=== PATIENT | female | born 1950 | race Caucasian/White ===

== ENCOUNTER 2020-12-15 10:42 | Outpatient (CLI) | payer MEDICARE, SELFPAY ==
--- NOTE | 2020-12-15 10:57 | MM_ITS ---
WS: [id number] BILATERAL DIGITAL DIAGNOSTIC MAMMOGRAM MAMMOGRAPHY WITH CAD CLINICAL INFORMATION: hx of breast ca COMPARISON: August 17, 2019 and August 2018 and 2017 TECHNIQUE: Bilateral CC, MLO, and ML views. FINDINGS: Scattered fibroglandular densities bilaterally. Prior postoperative changes left upper outer quadrant lumpectomy with parenchymal scarring. Dystrophic and eggshell calcification. Surgical clips. Bilater al punctate and clustered calcifications. Lucent centered calcifications. No suspicious focal mass, asymmetry, calcifications, or architectural distortion. No evidence of lois gnancy. MM/[place] [id number] IMPRESSION: BI-RADS: 2-Benign FOLLOW UP: 1 Year Follow-up Recommend return to annual diagnostic mammography.
== END 2020-12-15 10:43 | disposition home or self-care (01) ==
PROVIDERS: PCP Nurse Practitioner; Visit Provider Nurse Practitioner
DX: Z85.3 Personal history of malignant neoplasm of breast (principal)
CPT/HCPCS: 77066

== ENCOUNTER 2021-04-11 07:58 | Outpatient (CLI) | payer MEDICARE, SELFPAY ==
--- NOTE | 2021-04-11 08:00 | USCV_ITS ---
Anya Navarro Age: 70 Gender: F : 1950 Exam Date: 04/11/2021 08:28 Ordering Phys: Obdulia Nj MD ([email or web address]) Technologist: Connor Hernandez Exam Location: [facility] – [place] Indication: chest pain BP: 130 / 76 HR: 51 Rhythm: Sinus Technical Quality: Adequate MEASUREMENTS (Male / Female) Normal Values 2D ECHO LV Diastolic Diameter PLAX 3.5 cm 4.2 - 5.9 / 3.9 - 5.3 cm LV Systolic Diameter PLAX 2.6 cm IVS Diastolic Thickness 0.8 cm 0.6 - 1.0 / 0.6 - 0.9 cm IVS Systolic Thickness 1.3 cm LVPW Diastolic Thickness 1.0 cm 0.6 - 1.0 / 0.6 - 0.9 cm LVPW Systolic Thickness 1.1 cm LVOT Diameter 2.1 cm LV Ejection Fraction 2D Teich 51.7 % LV Ejection Fraction MOD 2C 64.1 % LV Ejection Fraction 2C AL 65.3 % LA Diameter 3.9 cm LA Width 3.4 cm LA Height 6.2 cm RA Width 4.4 cm RA Height 5.0 cm Aorta at Sinotubular Diameter 2.4 cm M-MODE Aortic Annulus Diameter 3.6 cm LA Ao Ratio MM 1.2 DOPPLER AV Peak Velocity 171.0 cm/s LVOT Peak Velocity 127.0 cm/s AV Area Cont Eq vti 2.7 cm squared AV Area Cont Eq pk 2.5 cm squared MV Area PHT 3.9 cm squared Mitral E to A Ratio 1.3 MV E' Velocity 53.0 cm/s Mitral E to MV E' Ratio 10.4 Mitral E to LV E' Lateral Ratio 10.0 Mitral E to LV E' Septal Ratio 10.8 TR Peak Velocity 291.8 cm/s TR Peak Gradient 34.0 mmHg TV Peak E Velocity 121.0 cm/s Right Atrial Pressure 3.0 mmHg Pulmonary Artery Systolic Pressu 37.0 mmHg PV Peak Velocity 73.0 cm/s FINDINGS Left Ventricle Normal left ventricular size and systolic function, EF 64 %. No regional wall motion abnormalities. Right Ventricle The right ventricle is normal in size and function. Right Atrium The right atrium is normal in size. Left Atrium Mildly increased left atrial size. Mitral Valve Thickened mitral valve. Mild mitral annular calcification. Trace mitral valve regurgitation. Aortic Valve Thickened aortic valve. Tricuspid Valve Trace to mild tricuspid valve regurgitation. Pulmonic Valve No gross abnormalities noted Pericardium Normal pericardium without effusion. Aorta Normal ascending aorta dimension. CONCLUSIONS Normal left ventricular size and systolic function, EF 64 %. No regional wall motion abnormalities. Mildly increased left atrial size. Thickened mitral valve. Mild mitral annular calcification. Trace mitral valve regurgitation. Thickened aortic valve. Trace to mild tricuspid valve regurgitation. There is no pericardial effusion. There are no intracardiac masses. Estimated pulmonary artery peak systolic pressure was 37 mmHg There is no pericardial effusion. There are no intracardiac masses. No previous study is available for comparison. Dr Obdulia Nj MD FACC (Electronically Signed) Final Date: 11 April 2021 23:17 S
== END 2021-04-11 07:59 | disposition home or self-care (01) ==
LOC: US 08:00
PROVIDERS: PCP Nurse Practitioner; Visit Provider Internal Medicine Cardiovascular Disease
DX: R06.00 Dyspnea, unspecified (principal); R07.9 Chest pain, unspecified; I08.3 Combined rheumatic disorders of mitral, aortic and tricuspid valves
CPT/HCPCS: 93306

== ENCOUNTER → 2021-09-13 12:35 | Outpatient (BNVA) | payer MEDICARE, SELFPAY | PROVIDERS: PCP Nurse Practitioner; Visit Provider Internal Medicine Cardiovascular Disease | DX: Z79.01 Long term (current) use of anticoagulants (principal) ==

== ENCOUNTER 2021-09-19 11:19 | Outpatient (CLI) | payer MEDICARE, SELFPAY ==
--- NOTE | 2021-09-19 11:32 | XR_ITS ---
WS: [id number] DEXA (DUAL ENERGY X-RAY ABSORPTIOMETRY) Bone mineral density was performed using a [employer] machine. HISTORY: POST MENOPAUSAL COMPARISON: None available. Lumbar spine BMD (L1-L4): 1.159 g/cm2 T score: -0.2 Z score: 0.3 Total hip BMD: Left: 0.966 g/cm2. T score: -0.3 Z score: 0.4 Right: 0.919 g/cm2. T score: -0.7 Z score: 0.0 10 year probability of a major osteoporotic fracture is 14%. XR/XR DEXA axial skeleton* [id number] IMPRESSION: NORMAL BONE MINERAL DENSITY based upon the WHO classification for females.
== END 2021-09-19 11:20 | disposition home or self-care (01) ==
LOC: RAD 11:25
PROVIDERS: PCP Nurse Practitioner; Visit Provider Nurse Practitioner
DX: Z78.0 Asymptomatic menopausal state (principal)
CPT/HCPCS: 77080

== ENCOUNTER → 2021-09-22 08:52 | Outpatient (BNVA) | payer MEDICARE, SELFPAY | PROVIDERS: PCP Nurse Practitioner; Visit Provider Internal Medicine Cardiovascular Disease | DX: Z79.01 Long term (current) use of anticoagulants (principal) ==

== ENCOUNTER → 2021-09-29 13:20 | Outpatient (BNVA) | payer MEDICARE, SELFPAY | PROVIDERS: PCP Nurse Practitioner; Visit Provider Internal Medicine Cardiovascular Disease | DX: I48.91 Unspecified atrial fibrillation (principal); Z79.01 Long term (current) use of anticoagulants ==

== ENCOUNTER → 2021-10-06 09:00 | Outpatient (BNVA) | payer MEDICARE, SELFPAY | PROVIDERS: PCP Nurse Practitioner; Visit Provider Internal Medicine Cardiovascular Disease | DX: Z79.01 Long term (current) use of anticoagulants (principal) ==

== ENCOUNTER → 2021-10-10 09:59 | Outpatient (BNVA) | payer MEDICARE, SELFPAY | PROVIDERS: PCP Nurse Practitioner; Visit Provider Internal Medicine Cardiovascular Disease | DX: I48.91 Unspecified atrial fibrillation (principal); I10 Essential (primary) hypertension; E03.9 Hypothyroidism, unspecified; G47.33 Obstructive sleep apnea (adult) (pediatric); J44.9 Chronic obstructive pulmonary disease, unspecified; Z79.899 Other long term (current) drug therapy; Z79.01 Long term (current) use of anticoagulants; F17.210 Nicotine dependence, cigarettes, uncomplicated | CPT/HCPCS: 99214 ==

== ENCOUNTER → 2021-10-18 12:43 | Outpatient (BNVA) | payer MEDICARE, SELFPAY | PROVIDERS: PCP Nurse Practitioner; Visit Provider Internal Medicine Cardiovascular Disease | DX: Z79.01 Long term (current) use of anticoagulants (principal) ==

== ENCOUNTER → 2021-10-25 09:54 | Outpatient (BNVA) | payer MEDICARE, SELFPAY | PROVIDERS: PCP Nurse Practitioner; Visit Provider Internal Medicine Cardiovascular Disease | DX: Z79.01 Long term (current) use of anticoagulants (principal) ==

== ENCOUNTER → 2021-11-02 15:34 | Outpatient (BNVA) | payer MEDICARE, SELFPAY | PROVIDERS: PCP Nurse Practitioner; Visit Provider Internal Medicine Cardiovascular Disease | DX: Z79.01 Long term (current) use of anticoagulants (principal) ==

== ENCOUNTER → 2021-11-10 09:42 | Outpatient (BNVA) | payer MEDICARE, SELFPAY | PROVIDERS: PCP Nurse Practitioner; Visit Provider Internal Medicine Cardiovascular Disease | DX: Z79.01 Long term (current) use of anticoagulants (principal) ==

== ENCOUNTER → 2021-11-16 08:46 | Outpatient (BNVA) | payer MEDICARE, SELFPAY | PROVIDERS: PCP Nurse Practitioner; Visit Provider Internal Medicine Cardiovascular Disease | DX: Z79.01 Long term (current) use of anticoagulants (principal) ==

== ENCOUNTER → 2021-11-23 15:07 | Outpatient (BNVA) | payer MEDICARE, SELFPAY | PROVIDERS: PCP Nurse Practitioner; Visit Provider Internal Medicine Cardiovascular Disease | DX: Z79.01 Long term (current) use of anticoagulants (principal) ==

== ENCOUNTER 2021-11-24 12:40 | Outpatient (CLI) | payer MEDICARE, SELFPAY ==
--- NOTE | 2021-11-24 12:53 | CT_ITS ---
WS: [id number] LDCT LUNG CANCER SCREENING HISTORY: NICOTINE DEPENDENCE, CIGARETTES TECHNIQUE: Axial imaging performed from the apices to 1 cm below the costophrenic angles. Coronal and sagittal reformats are submitted with axial MIP series. All CT scans at [facility] use at least one of these dose optimization techniques: automated exposure control; mA and/or kV adjustment per patient size (includes targeted exams where dose is matched to clinical indication); or iterativ e reconstruction. DLP: 75.41 mGy.cm DIvol: Mean CTDIvol: 1.60 (mGy) COMPARISON: None available. Diagnostic quality: Satisfactory Lung Nodules: No nodule or endobronchial lesions. Lungs: No abnormality. Heart: Normal size heart. No pericardial effusion. Other findings: Moderate atherosclerosis within the aorta. Normal size pulmonary artery. No pericardi al or pleural effusion. Bilateral adrenal low-attenuation nodules consistent with adenomas. Increase in thoracic kyphosis. Soft tissue thickening involving the LEFT breast. History of breast cancer. Thi s is probably posttreatment change. CT/CT lung screening [id number] IMPRESSION: LUNG-RADS: 1-Negative FOLLOW UP: 12 Month: Continue annual screening with LDCT OTHER FINDINGS (S MODIFIER): None.
== END 2021-11-24 12:41 | disposition home or self-care (01) ==
LOC: RAD 12:46
PROVIDERS: PCP Physician Assistant; Visit Provider Physician Assistant
DX: Z12.2 Encounter for screening for malignant neoplasm of respiratory organs (principal); F17.210 Nicotine dependence, cigarettes, uncomplicated
CPT/HCPCS: 71271

== ENCOUNTER → 2021-12-01 09:43 | Outpatient (BNVA) | payer MEDICARE, SELFPAY | PROVIDERS: PCP Physician Assistant; Visit Provider Internal Medicine Cardiovascular Disease | DX: Z79.01 Long term (current) use of anticoagulants (principal) ==

== ENCOUNTER → 2021-12-06 10:08 | Outpatient (BNVA) | payer MEDICARE, SELFPAY | PROVIDERS: PCP Physician Assistant; Visit Provider Internal Medicine Cardiovascular Disease | DX: Z79.01 Long term (current) use of anticoagulants (principal) ==

== ENCOUNTER → 2021-12-14 09:52 | Outpatient (BNVA) | payer MEDICARE, SELFPAY | PROVIDERS: PCP Physician Assistant; Visit Provider Internal Medicine Cardiovascular Disease | DX: Z79.01 Long term (current) use of anticoagulants (principal) ==

== ENCOUNTER → 2021-12-20 17:06 | Outpatient (BNVA) | payer MEDICARE, SELFPAY | PROVIDERS: PCP Physician Assistant; Visit Provider Internal Medicine Cardiovascular Disease | DX: Z79.01 Long term (current) use of anticoagulants (principal) ==

== ENCOUNTER → 2021-12-29 09:34 | Outpatient (BNVA) | payer MEDICARE, SELFPAY | PROVIDERS: PCP Physician Assistant; Visit Provider Internal Medicine Cardiovascular Disease | DX: Z79.01 Long term (current) use of anticoagulants (principal) ==

== ENCOUNTER → 2022-01-05 10:25 | Outpatient (BNVA) | payer MEDICARE, SELFPAY | PROVIDERS: PCP Physician Assistant; Visit Provider Internal Medicine Cardiovascular Disease | DX: Z79.01 Long term (current) use of anticoagulants (principal) ==

== ENCOUNTER → 2022-01-12 09:20 | Outpatient (BNVA) | payer MEDICARE, SELFPAY | PROVIDERS: PCP Physician Assistant; Visit Provider Internal Medicine Cardiovascular Disease | DX: Z79.01 Long term (current) use of anticoagulants (principal) ==

== ENCOUNTER → 2022-01-17 14:22 | Outpatient (BNVA) | payer MEDICARE, SELFPAY | PROVIDERS: PCP Physician Assistant; Visit Provider Internal Medicine Cardiovascular Disease | DX: Z79.01 Long term (current) use of anticoagulants (principal) ==

== ENCOUNTER → 2022-01-23 11:03 | Outpatient (BNVA) | payer MEDICARE, SELFPAY | PROVIDERS: PCP Physician Assistant; Visit Provider Internal Medicine Cardiovascular Disease | DX: Z79.01 Long term (current) use of anticoagulants (principal) ==

== ENCOUNTER → 2022-04-05 09:48 | Outpatient (BNVA) | payer MEDICARE, SELFPAY | PROVIDERS: PCP Physician Assistant; Visit Provider Internal Medicine Cardiovascular Disease | DX: I48.91 Unspecified atrial fibrillation (principal); Z79.01 Long term (current) use of anticoagulants; J44.9 Chronic obstructive pulmonary disease, unspecified; G47.33 Obstructive sleep apnea (adult) (pediatric); F51.9 Sleep disorder not due to a substance or known physiological condition, unspecified; I10 Essential (primary) hypertension; E03.9 Hypothyroidism, unspecified; F17.200 Nicotine dependence, unspecified, uncomplicated; Z79.899 Other long term (current) drug therapy | CPT/HCPCS: 99214 ==

== ENCOUNTER 2022-06-07 11:23 | Outpatient (CLI) | payer MEDICARE, SELFPAY ==
--- NOTE | 2022-06-07 11:30 | MM_ITS ---
WS: [id number] DIAGNOSTIC BILATERAL DIGITAL BREAST TOMOSYNTHESIS MAMMOGRAPHY WITH CAD HISTORY: HX OF BREAST CA COMPARISON: 12/15/2020, 08/17/2019 TECHNIQUE: Bilateral craniocaudad, mediolateral oblique, and mediolateral views are submitted with to mosynthesis and SM. Computer aided detection utilized. Breast composition: There are scattered areas of fibroglandular density. Lumpectomy and postsurgical changes in the posterior superior LEFT breast. Marked dystrophic calcifications and biopsy clips. The re are additional bilateral scattered benign calcifications. Mild LEFT skin thickening and trabecular thickening. No interval change. MM/[place] [id number] IMPRESSION: BI-RADS: 2-Benign FOLLOW UP: 1 Year Follow-up
== END 2022-06-07 11:24 | disposition home or self-care (01) ==
LOC: RAD 11:25
PROVIDERS: PCP Physician Assistant; Visit Provider Physician Assistant
DX: Z85.3 Personal history of malignant neoplasm of breast (principal)
CPT/HCPCS: 77062; G0279

== ENCOUNTER → 2022-10-04 11:24 | Outpatient (BNVA) | payer MEDICARE, SELFPAY | PROVIDERS: PCP Physician Assistant; Visit Provider Internal Medicine Cardiovascular Disease | DX: I48.91 Unspecified atrial fibrillation (principal); Z79.899 Other long term (current) drug therapy; G47.33 Obstructive sleep apnea (adult) (pediatric); I10 Essential (primary) hypertension; R00.1 Bradycardia, unspecified; F17.210 Nicotine dependence, cigarettes, uncomplicated; Z79.01 Long term (current) use of anticoagulants | CPT/HCPCS: 93005; 99214 ==

== ENCOUNTER 2022-11-22 08:11 | Outpatient (CLI) | payer MEDICARE, SELFPAY ==
--- NOTE | 2022-11-22 08:25 | CT_ITS ---
WS: [id number] LDCT LUNG CANCER SCREENING TECHNIQUE: Noncontrast CT of the chest with coronal and sagittal reformatted images. CLINICAL INFORMATION: HX OF TOBACCO USE COMPARISON: November 24, 2021 DLP: 97.47 mGy.cm DIvol: Mean CTDIvol: 2.00 (mGy) All CT scans at [facility] use at least one of these dose optimization techniques: automat ed exposure control; mA and/or kV adjustment per patient size (includes targeted exams where dose is matched to clinical indication); or iterative reconstruction. FINDINGS: No acute pulmonary infiltrates. No focal pneumonia or pleural fluid. Noncalcified nodule RI GHT lower lobe measuring 3 mm. A few additional tiny 1 to 2 mm nodules. Aortic calcification. Coronary calcification. No mediastinal or hilar lymphadenopathy. No axillary ly mphadenopathy. Postoperative changes lumpectomy LEFT breast. Thickening of the adrenal glands bilater ally. Normal GE junction. Fatty atrophy of the pancreas. Moderate thoracic kyphosis. Chronic anterior wedging in the mid thoracic spine. CT/CT lung screening [id number] IMPRESSION: LUNG-RADS: 2-Benign Appearance or Behavior FOLLOW UP: 12 Month: Continue annual screening with LDCT
== END 2022-11-22 08:12 | disposition home or self-care (01) ==
PROVIDERS: PCP Physician Assistant; Visit Provider Physician Assistant
DX: Z12.2 Encounter for screening for malignant neoplasm of respiratory organs (principal); Z87.891 Personal history of nicotine dependence
CPT/HCPCS: 71271

== ENCOUNTER 2023-02-08 09:54 | Inpatient (IN) | payer MEDICARE, SELFPAY ==
[2023-02-08] VITALS (13 sets, daily range): BP systolic 118–193; BP diastolic 55–103; PULSE 57–79; RESP 15–20; TEMP 36.6–37.3; O2SAT 91–98; BMI 36.6
--- NOTE | 2023-02-08 10:19 | XR_ITS ---
WS: [id number] XR chest 1V portable [id number] REASON FOR EXAM: chest discomfort FINDINGS: Somewhat prominent tortuous ectatic calcified a sending thoracic aorta without aneurysmal dilatation. Calcified granulomas disease bilaterally. Complex linear opacity in the right lower lung field. Abnormality not noted on previous CT scan of e chest 11/22/2022 and presumably represents atelectasis. Mild thoracic scoliosis with moderate degenerative spondylosis in the mid and lower thoracic spine. IMPRESSION: Linear opacity in the right lower lung not previously noted as above. Recommend follow-up PA and late ral chest in 1 week.
--- NOTE | 2023-02-08 10:21 | ED_ITS ---
HPI - Abdominal Pain General: Chief Complaint: Abdominal Pain Stated Complaint: low abd pain Time Seen by Provider: 02/08/23 09:59 Source: patient Mode of arrival: ambulatory Limitations: no limitations History of Present Illness: 72yo female presents with lower abdominal pain that radiates into her back and into her chest. Patient reports her pain started last night. Reports she was sitting in her chair at home when the pain started and it was shooting in nature. Reports that it has decreased today, but still uncomfortable. She reports that it feels as if there is a fist in her mid chest. Patient reports a history of COPD and atrial fibrillation. She denies any known cardiac issues, abdominal surgeries, fever, chills, body aches, difficulty breathing, shortness of breath, vomiting, dysuria. Associated Symptoms: Reports diarrhea and nausea; Denies chills, dysuria, fever(s) and vomiting Review of Systems Const: Denies: fever(s), chills or body aches Card: Reports: chest pain (fist in mid chest) Resp: Denies: dyspnea GI: Reports: abdominal pain, nausea and diarrhea; Denies: vomiting : Denies: difficulty voiding, dysuria, urinary frequency or urinary urgency Musc: Reports: back pain (left lower); Denies: neck pain Neuro: Denies: headache(s) PFSH ED PFSH: Medical History Atrial fibrillation Breast cancer Fatigue History of chemotherapy History of trigger finger Hx of colonic polyps Hx of radiation therapy Hypertension Hypothyroidism Long-term (current) use of anticoagulants, INR goal 2.0-3.0 Palpitations Peripheral neuropathy Shortness of breath Sleep apnea Smoking Surgical History History of lumpectomy of left breast History of surgical removal of ganglion cyst History of tonsillectomy and adenoidectomy Family History Father Cancer Grandmother Cancer Dementia Mother Thyroid condition Dementia Stroke Parkinsons disease Grandfather Dementia Parkinsons disease Family/Other Parkinsons disease Denies family history of Diabetes CAD (coronary artery disease) Clotting disorder Chronic kidney disease (CKD) Suicide Anesthesia complication Bleeding disorder Lung disease Social History Smoking and tobacco status: current every day smoker Alcohol intake: never Substance/Drug Use: never Physical Exam Const: COMMON NORMALS: no acute distress, patient oriented x3 and alert GENERAL APPEARANCE: cooperative ORIENTATION/CONSCIOUSNESS: Yes awake OTHER: Patient is ambulatory to the exam room unassisted. She is sitting upright on stretcher no acute distress. No family is at bedside HENMT: COMMON NORMALS: normocephalic, atraumatic, external ears normal and Normal external nose present HEAD & SCALP: normocephalic and atraumatic NOSE: Normal external nose present EXTERNAL EAR: Yes external ears normal MOUTH: Normal oral and palatal mucosa present Eye: COMMON NORMALS: conjunctivae normal GENERAL EYE: appearance normal, both eyes and all related structures CONJUNCTIVA: Yes conjunctivae normal Neck/C-Spine: COMMON NORMALS: full ROM Chest: CHEST: Yes Symmetrical chest wall rise Resp: COMMON NORMALS: normal respiratory effort EFFORT & INSPECTION: No respiratory distress AUSCULTATION: wheezes scattered wheezes Cardio: COMMON NORMALS: regular rate RATE: regular rate GI: COMMON NORMALS: Soft to palpation PALPATION: Yes Soft to palpation, Yes Tenderness to palpation present (GI) Details: LLQ and RLQ, No Guarding due to palpation present (GI) and No Rigid due to palpation : COMMON NORMALS: No no CVA tenderness BLADDER/KIDNEY EXAM: No no CVA tenderness Back/Pelvis: COMMON NORMALS: thoraco-lumbar ROM normal; negative for no CVA tenderness LUMBAR SPINE/LOWER BACK: No lumbar spinal tenderness BACK IMAGE (FEMALE): 1. mild tenderness to palpation Extremity: COMMON NORMALS: full ROM Neuro: COMMON NORMALS: patient oriented x3 SENSORIUM/ORIENTATION: Yes alert Psych: COMMON NORMALS: cooperative ATTITUDE: Yes calm Course Vital Signs: Vital signs: Vital Signs Temperature 98.2 F 02/08/23 10:00 Pulse Rate 57 L 02/08/23 16:19 Respiratory Rate 20 H 02/08/23 16:19 Blood Pressure 153/55 02/08/23 16:19 Pulse Oximetry 96 02/08/23 16:19 Oxygen Delivery Me thod Room Air 02/08/23 16:19 MDM - Abdominal Pain Medical Decision Making 72yo female here with lower abdominal pain that started last night along with diarrhea and nausea. Patient reports the pain radiated into her left back as well as into her chest. States it feels as if there is a fist in her chest. Patient denies cardiac history or previous abdominal surgery. Patient also denies fever, chills, body aches, difficulty breathing, shortness of breath, vomiting, dysuria. Patient does take warfarin for atrial fibrillation. Patient is nontoxic in appearance. Vital signs are stable. White blood cell count is elevated at 15.4. CBC is grossly unremarkable. Lipase is elevated at 990. Amylase is elevated at 559. UA with 2+ blood and 0- 4 red blood cells/white blood cells/epithelial cells. No bacteria noted. EKG showed sinus bradycardia with a rate of 58. Contrasted CTAP reveals acute pancreatitis. There is no evidence of a drainable fluid collection or abscess. Portal vein splenic vein appear patent. Pancreatic head calcification adjacent to the distal CBD, no CBD dilation, recommend MRCP or HIDA scan. Also noted is severe canal stenosis L4-5. Consulted Dr. Valenzuela, hospitalist for admission. Recommends MRCP prior to admission. MRCP reveals a normal size common bile duct and pancreatic duct. Calcification described on CT is not evident on MRI. Mild diffuse peripancreatic edema consistent with pancreatitis. No abscess or pseudocyst noted. Patient to be admitted to the hospitalist service. Patient is agreeable with a dmit Differential Diagnosis Likely abdominal pain, pancreatitis and small bowel obstruction Lab Data I reviewed the patient's lab results. 02/08/23 10:10 02/08/23 10:10 Labs/Radiology: Laboratory Results WBC 15.4 10^3/uL (4.0-10.0) H 02/08/23 10:10 RBC 4.70 10^6/uL (4.1-5.3) 02/08/23 10:10 Hgb 14.7 g/dL (11.5-15.3) 02/08/23 10:10 Hct 45.5 % (37.0-47.0) 02/08/23 10:10 MCV 96.8 fl (81-99) 02/08/23 10:10 MCH 31.3 pg (28.0-34.0) 02/08/23 10:10 MCHC 32.3 g/dL (30.0-36.0) 02/08/23 10:10 RDW 13.5 % (12.1-15.1) 02/08/23 10:10 Plt Count 327 10^3/cmm (130-400) 02/08/23 10:10 MPV 9.3 fL (7.4-10.4) 02/08/23 10:10 Neut % (Auto) 83.5 % 02/08/23 10:10 Lymph % (Auto) 11.4 % 02/08/23 10:10 [place] % (Auto) 4.2 % 02/08/23 10:10 Eos % (Auto) 0.4 % 02/08/23 10:10 Baso % (Auto) 0.1 % 02/08/23 10:10 Neut # (Auto) 12.87 10^3/uL (1.8-7.7) H 02/08/23 10:10 Lymph # (Auto) 1.8 10^3/uL (0.8-4.8) 02/08/23 10:10 [place] # (Auto) 0.6 10^3/uL (0.2-0.9) 02/08/23 10:10 Eos # (Auto) 0.1 10^3/uL (0.0-0.8) 02/08/23 10:10 Baso # (Auto) 0.0 10^3/uL (0.0-0.1) 02/08/23 10:10 Nucleated RBC % (auto) 0 % 02/08/23 10:10 Nucleated RBCs # 0.0 /100WBC 02/08/23 10:10 Sodium 140 mmol/L (136-145) 02/08/23 10:10 Potassium 4.5 mmol/L (3.5-5.1) 02/08/23 10:10 Chloride 102 mmol/L (98-107) 02/08/23 10:10 Carbon Dioxide 28 mmol/L (22-29) 02/08/23 10:10 Anion Gap 14.5 (5-19) 02/08/23 10:10 BUN 14 mg/dL (8-23) 02/08/23 10:10 Creatinine 0.8 mg/dL (0.5-0.9) 02/08/23 10:10 GFR Calculation Not Reportable 02/08/23 10:10 Glucose 113 mg/dL (65-115) 02/08/23 10:10 Calculated Osmolality 291 mOsm/kg (285-295) 02/08/23 10:10 Calcium 9.0 mg/dL (8.5-10.5) 02/08/23 10:10 Total Bilirubin 0.4 mg/dL (0.15-1.2) 02/08/23 10:10 AST 20 U/L (0-32) 02/08/23 10:10 ALT 16 U/L (0-33) 02/08/23 10:10 Alkaline Phosphatase 99 U/L (35-105) 02/08/23 10:10 Troponin T Baseline 8 ng/L (0-10) 02/08/23 10:10 Troponin T 120 Minute 6.07 ng/L (0-10) 02/08/23 12:17 Delta Troponin T -1.93 ABS# (0-10) L 02/08/23 12:17 Total Protein 6.9 g/dL (6.6-8.7) 02/08/23 10:10 Albumin 4.0 g/dL (3.5-5.2) 02/08/23 10:10 Globulin 2.9 g/dL (1.3-4.6) 02/08/23 10:10 Triglycerides 104 mg/dL (0-150) 02/08/23 10:10 Amylase 559 U/L (28-100) H* 02/08/23 10:10 Lipase 990 U/L (13-60) H 02/08/23 10:10 Urine Color Yellow (Yellow) 02/08/23 12:22 Urine Appearance Clear (CLEAR) 02/08/23 12:22 Urine pH 5 (5-7) 02/08/23 12:22 Ur Specific [place] 1.005 (1.005-1.030) 02/08/23 12:22 Urine Protein Trace (Negative) 02/08/23 12:22 Urine Glucose (UA) Norm (Normal) 02/08/23 12:22 Urine Ketones Negative (Negative) 02/08/23 12:22 Urine Blood 2+ (Negative) H 02/08/23 12:22 Urine Nitrate Negative (Negative) 02/08/23 12:22 Urine Bilirubin Neg (Negative) 02/08/23 12:22 Urine Urobilinogen Norm mg/dL (Negative) 02/08/23 12:22 Ur Leukocyte Esterase Negative (Negative) 02/08/23 12:22 Urine RBC 0-4 /hpf (0-2) H 02/08/23 12:22 Urine WBC 0-4 /hpf (0-5) H 02/08/23 12:22 Ur Squamous Epith Cells 0-4 /hpf (0-5) H 02/08/23 12:22 Amorphous Sediment Not Reportable 02/08/23 12:22 Urine Bacteria None /hpf (NONE) 02/08/23 12:22 Discharge Plan Discharge Admit Provider: Kevin Valenzuela Condition: Stable Coding Level of Care Code ED Aerospace Engineer for Jose Espitia
--- NOTE | 2023-02-08 10:34 | ECG_ITS ---
[facility] Test Date: 2023-02-08 Pat Name: Anya Navarro Department: Room: Gender: Female Dinkey Dispatcher: : 1950 Requested By: Jonah Spence Order Number: [id number] Mclaughlin MD: Makeda Wakefield M.D. Measurements Intervals [place] Rate: 58 P: 79 OR: 187 QRS: 37 QRSD: 98 T: 49 QT: 408 QTc: 402 Interpretive Statements SINUS BRADYCARDIA LOW QRS VOLTAGE IN PRECORDIAL LEADS [QRS DEFLECTION < 1.0 mV IN CHEST LEADS] No previous ECG available for comparison Electronically Signed On 02-08-2023 10:44:20 CDT by Makeda Wakefield M.D. [id number]
[2023-02-08 10:47] LABS: Basophils % 0.1 %; Eosinophils # 0.1 10^3/uL (0.0-0.8); Eosinophils % 0.4 %; Hematocrit 45.5 % (37.0-47.0); Hemoglobin 14.7 g/dL (11.5-15.3); Lymphocytes # 1.8 10^3/uL (0.8-4.8); Lymphocytes % 11.4 %; Mean Corpuscular HGB Conc 32.3 g/dL (30.0-36.0); Mean Corpuscular Hemoglobin 31.3 pg (28.0-34.0); Mean Corpuscular Volume 96.8 fl (81-99); Mean Platelet Volume 9.3 fL (7.4-10.4); Monocytes # 0.6 10^3/uL (0.2-0.9); Monocytes % 4.2 %; Neutrophils # 12.87 10^3/uL (1.8-7.7); Neutrophils % 83.5 %; Nucleated Red Blood Cells % 0 %; Platelet Count 327 10^3/cmm (130-400); Red Cell Distribution Width 13.5 % (12.1-15.1); White Blood Count 15.4 10^3/uL (4.0-10.0)
[2023-02-08 10:58] LABS: Troponin(5th) Baseline 8 ng/L (0-10)
[2023-02-08 10:59] LABS: Alanine Aminotransferase 16 U/L (0-33); Alkaline Phosphatase 99 U/L (35-105); Aspartate Amino Transferase 20 U/L (0-32); Blood Urea Nitrogen 14 mg/dL (8-23); Carbon Dioxide 28 mmol/L (22-29); Globulin 2.9 g/dL (1.3-4.6); Glucose 113 mg/dL (65-115); Total Bilirubin 0.4 mg/dL (0.15-1.2); Total Protein 6.9 g/dL (6.6-8.7)
[2023-02-08 11:09] LABS: Lipase 990 U/L (13-60); Potassium 4.5 mmol/L (3.5-5.1)
--- NOTE | 2023-02-08 11:13 | CT_ITS ---
WS: [id number] CT ABDOMEN PELVIS TECHNIQUE: Contrast-enhanced CT of the abdomen and pelvis with coronal and sagittal reformatted image s. CLINICAL INFORMATION: pancreatitis, lipase 990 COMPARISON: None. DLP: 997.[address] scans at [facility] use at least one of these dose optimization techniques: automated e xposure control; mA and/or kV adjustment per patient size (includes targeted exams where dose is matc hed to clinical indication); or iterative reconstruction. FINDINGS: Diffuse inflammatory stranding and edema about the pancreas compatible with acute pancreatitis. No dr ainable fluid collection or abscess. No evidence of pancreatic necrosis. Few prominent peripancreatic reactive lymph nodes. Portal vein is splenic vein appear patent. Normal common bile duct. Focal 6 mm calcification adjacent to the distal common bile duct. Distal duct obstruction is difficult to exclu de although no bile duct dilatation. Mild diffuse fatty filtration of the liver. Normal gallbladder. Tiny esophageal hiatal hernia. Normal renal parenchymal enhancement. No hydronephrosis. A few tiny renal cysts. Small right adrenal adenom as largest measuring 1.9 cm. Left adrenal thickening with small adenomas largest measuring 1.8 cm. Normal caliber abdominal aorta. Aortic calcification. Celiac and SMA are patent. Small amount of free fluid in the pelvis. Normal sigmoid colon. Grade 1 anterolisthesis L4 on L5. Moderate to severe veterinary practitioner trisha central canal stenosis L4-5 due to grade 1 anterolisthesis in combination with facet arthropathy and ligamentum flavum hypertrophy. IMPRESSION: 1. Findings compatible with acute pancreatitis described above. 2. No evidence of drainable fluid collection or abscess. 3. Portal vein splenic vein appear patent. 4. Pancreatic head calcification adjacent to distal common bile duct. Distal common bile duct obstru ction difficult to entirely exclude although no bile duct dilatation. This can be further evaluated w ith MRCP or HIDA scan to evaluate common bile duct and small bowel activity 5. Additional incidental pancreatic calcifications. 6. Severe central canal stenosis L4-5 described above. This can be followed up with lumbar spine MRI on an elective basis. 7. No other acute findings. Notified MERLINE Mullen at 02/08/2023 11:58 AM.
[2023-02-08 11:44] LABS: Amylase 559 U/L (28-100)
[2023-02-08] MEDS: sodium chloride 0.9% 1,000 ML 999 ML IV (12:29)
--- NOTE | 2023-02-08 12:30 | MR_ITS ---
WS: [id number] MRCP (MAGNETIC RESONANCE CHOLANGIOPANCREATOGRAPHY) HISTORY: further eval stone near CBD, pancreatitis COMPARISON: Prior CT 02/08/2023. TECHNIQUE: Multiple sequences are performed to evaluate the intra and extrahepatic ducts. There is no intrahepatic bile duct dilatation. The common bile duct remains normal caliber. CT descri bed stone identified near the distal common bile duct is not identified by MRI. There is no pancreati c duct dilatation. There is edema surrounding the entire pancreas and loss of the normal architecture of the pancreas consistent with previously described acute pancreatitis. No mass identified. The daniel er is normal. Normal appearance of the gallbladder. No focal collections or abscess. There is no free fluid or ascites. Spleen is normal size. IMPRESSION: 1. Normal sized common bile duct and pancreatic duct. 2. Calcification described by CT is not evident by MRI. No duct dilatation. 3. Mild diffuse peripancreatic edema consistent with pancreatitis. No abscess or pseudocyst
[2023-02-08 12:41] LABS: Urine Appearance Clear (CLEAR); Urine Color Yellow (Yellow); pH Urine 5 (5-7)
[2023-02-08 12:42] LABS: Add Urine Culture? No; Add Urine Microscopic? YES; Bilirubin Urine Neg (Negative); Blood Urine 2+ (Negative); Glucose Urine UA Norm (Normal); Ketones Urine Negative (Negative); Leukocyte Esterase Urine Negative (Negative); Nitrate Urine Negative (Negative); Protein Urine Trace (Negative); RBC Urine 0-4 /hpf (0-2); Specific Gravity, Urine 1.005 (1.005-1.030); Squamous Epithelial Cell Urine 0-4 /hpf (0-5); Urobilinogen Urine Norm (Negative); WBC Urine 0-4 /hpf (0-5)
[2023-02-08 13:04] LABS: Troponin 5 2HR 6.07 ng/L (0-10); Troponin 5 2HR Delta -1.93 ABS# (0-10)
[2023-02-08 13:15] LABS: Anion Gap 14.5 (5-19); Chloride 102 mmol/L (98-107); Osmolality Calculated 291 mOsm/kg (285-295); Sodium 140 mmol/L (136-145)
[2023-02-08 13:28] LABS: Triglycerides 104 mg/dL (0-150)
--- NOTE | 2023-02-08 16:12 | P.HP_ITS ---
Providers/Chief Complaint Admitting Physician: Kevin Valenzuela MD Primary Care Provider: Iram Bajwa Chief Complaint: low abd pain History of Present Illness Anya Navarro is a 72 year old female with past medical history of hypertension, hyperlipidemia, atrial fibrillation on chronic anticoagulation with Coumadin presents to the ER with abdominal pain radiating to back and into her chest for the last 24 hours along with nausea but no vomiting along with multiple episodes of diarrhea. She denies any difficulty in breathing, dysuria, headache, alcohol use, NSAIDs, history of similar complaints or pancreatitis in the past or any changes in medications recently. Review of Systems General: Reports: 10 or more systems reviewed and unremarkable except in HPI and below Const: Denies: fever(s), chills, body aches, change in appetite, change in weight, malaise, night sweats, diaphoresis, change in sleep pattern, daytime sleepiness or snoring Eyes: Denies: change in vision, blurry vision, photophobia, eye discomfort or eye discharge ENMT: Denies: throat pain, enlarged tonsils, hoarseness, mouth pain, oral sores, dry mouth, tinnitus, nasal congestion or post nasal drip Card: Denies: chest pain, palpitations, irregular heart rhythm, edema, swelling of feet/ankles, lightheadedness, syncope, pre-syncope, dyspnea on exertion, orthopnea, leg pain with exertion or acrocyanosis Resp: Denies: dyspnea, productive cough, non-productive cough, wheezing, stridor, pain on inspiration, change in phlegm color, hemoptysis or chest congestion GI: Denies: abdominal pain, nausea, vomiting, hematemesis, coffee ground emesis, dysphagia, heartburn, diarrhea, constipation, bloating, GI cramping, change in bowel habits, pain on defecation, hematochezia or melena : Denies: flank pain, dysuria, urinary frequency, urinary urgency, urinary hesitancy, nocturia or hematuria Musc: Denies: neck pain, back pain, extremity pain, joint pain, joint swelling, joint redness, joint stiffness or limited range of motion Neuro: Denies: headache(s), numbness in extremities, weakness in extremities, sensory changes, lack of coordination, difficulty walking, frequent falls, dizziness, vertigo, confusion, Slurred speech present, difficulty communicating thoughts or seizure-like activity Psych: Denies: anxiety, depression, mood swings, panic attacks, hopelessness or irritability Endo: Denies: polyuria, polydipsia, tired all the time, cold intolerance, excessive sweating, flushing or heat intolerance Adalid/Lymph: Denies: easy bruising or easy bleeding All/Imm: Denies: tongue swelling, facial swelling or acute wheezing Medications/Allergies Home Medications Medication Instructions Recorded Confirmed Last Taken Type albuterol sulfate 90 mcg/actuation 2 puff inhalation Q6H PRN 01/11/21 02/08/23 Unknown History aerosol inhaler Shortness Of Breath famotidine 20 mg tablet 20 mg PO DAILY 01/11/21 02/08/23 02/08/23 History gabapentin 100 mg capsule 200 mg PO .bedtime 01/11/21 02/08/23 02/07/23 History levothyroxine 50 mcg capsule 50 mcg PO DAILY 01/11/21 02/08/23 02/08/23 History warfarin 1 mg tablet 1 mg PO DAILY 01/11/21 02/08/23 Unknown History metoprolol succinate 25 mg 25 mg PO DAILY 01/12/21 02/08/23 02/08/23 History tablet,extended release 24 hr hydrochlorothiazide 12.5 mg tablet 12.5 mg PO DAILY PRN Edema 10/10/21 02/08/23 Unknown History propafenone 225 mg tablet 225 mg PO Q8H #270 tabs 02/05/22 02/08/23 02/08/23 Rx acetaminophen 500 mg tablet 500 mg PO Q6H PRN Pain 02/08/23 02/08/23 Unknown History amlodipine 5 mg tablet 5 mg PO DAILY 02/08/23 02/08/23 02/08/23 History amoxicillin 875 mg-potassium 1 tab PO Q12H 02/08/23 02/08/23 02/04/23 History clavulanate 125 mg tablet atorvastatin 10 mg tablet 10 mg PO DAILY 02/08/23 02/08/23 02/08/23 History lisinopril 20 mg tablet 20 mg PO DAILY 02/08/23 02/08/23 02/08/23 History warfarin 3 mg tablet See Rx Instructions .Route .COMPLEX 02/08/23 02/08/23 02/08/23 History Allergies Allergy/AdvReac Type Severity Reaction Status Date / Time [id number] Reductase Allergy myalgias Verified 10/04/22 12:16 Inhibitor [Aclfiqu-Tcw-Snn Reductase Inhibitor] tetanus toxoid, adsorbed Allergy arm Verified 10/04/22 12:16 redness and swelling at sight PFSH Acute PFSH: Medical History Atrial fibrillation Breast cancer Fatigue History of chemotherapy History of trigger finger Hx of colonic polyps Hx of radiation therapy Hypertension Hypothyroidism Long-term (current) use of anticoagulants, INR goal 2.0-3.0 Palpitations Peripheral neuropathy Shortness of breath Sleep apnea Smoking Surgical History History of lumpectomy of left breast History of surgical removal of ganglion cyst History of tonsillectomy and adenoidectomy Family History Father Cancer Grandmother Cancer Dementia Mother Thyroid condition Dementia Stroke Parkinsons disease Grandfather Dementia Parkinsons disease Family/Other Parkinsons disease Denies family history of Diabetes CAD (coronary artery disease) Clotting disorder Chronic kidney disease (CKD) Suicide Anesthesia complication Bleeding disorder Lung disease Social History Smoking and tobacco status: current every day smoker Alcohol intake: never Substance/Drug Use: never Vitals/I&O/Wt Last Vital Signs Temp 98.2 F 02/08/23 10:00 Pulse 59 L 02/08/23 14:56 Resp 18 02/08/23 14:56 BP 193/103 02/08/23 14:56 Pulse Ox 96 02/08/23 14:56 O2 Del Method Room Air 02/08/23 14:56 Weight last 48 hrs Weight 99.79 kg Physical Exam Narrative: General: In mild distress because of abdominal pain and nausea vomiting x3 HEENT: PERRLA, pupils bilaterally equal and reactive Chest: Normal vesicular breath sounds, no added sounds, equal good air entry bilaterally CVS: S1-S2 irregularly irregular, no murmurs, no tachycardia, no gallops, no rub s Abdomen: Soft, tender in epigastric area with hyperactive bowel sounds, no organomegaly Neuro: No focal deficits, no facial deformity, AO x3, power 5/5 in all limbs Data 02/09/23 04:40 02/09/23 04:40 Other Labs: Laboratory Results WBC 15.4 10^3/uL (4.0-10.0) H 02/08/23 10:10 RBC 4.70 10^6/uL (4.1-5.3) 02/08/23 10:10 Hgb 14.7 g/dL (11.5-15.3) 02/08/23 10:10 Hct 45.5 % (37.0-47.0) 02/08/23 10:10 MCV 96.8 fl (81-99) 02/08/23 10:10 MCH 31.3 pg (28.0-34.0) 02/08/23 10:10 MCHC 32.3 g/dL (30.0-36.0) 02/08/23 10:10 RDW 13.5 % (12.1-15.1) 02/08/23 10:10 Plt Count 327 10^3/cmm (130-400) 02/08/23 10:10 MPV 9.3 fL (7.4-10.4) 02/08/23 10:10 Neut % (Auto) 83.5 % 02/08/23 10:10 Lymph % (Auto) 11.4 % 02/08/23 10:10 [place] % (Auto) 4.2 % 02/08/23 10:10 Eos % (Auto) 0.4 % 02/08/23 10:10 Baso % (Auto) 0.1 % 02/08/23 10:10 Neut # (Auto) 12.87 10^3/uL (1.8-7.7) H 02/08/23 10:10 Lymph # (Auto) 1.8 10^3/uL (0.8-4.8) 02/08/23 10:10 [place] # (Auto) 0.6 10^3/uL (0.2-0.9) 02/08/23 10:10 Eos # (Auto) 0.1 10^3/uL (0.0-0.8) 02/08/23 10:10 Baso # (Auto) 0.0 10^3/uL (0.0-0.1) 02/08/23 10:10 Nucleated RBC % (auto) 0 % 02/08/23 10:10 Nucleated RBCs # 0.0 /100WBC 02/08/23 10:10 Sodium 140 mmol/L (136-145) 02/08/23 10:10 Potassium 4.5 mmol/L (3.5-5.1) 02/08/23 10:10 Chloride 102 mmol/L (98-107) 02/08/23 10:10 Carbon Dioxide 28 mmol/L (22-29) 02/08/23 10:10 Anion Gap 14.5 (5-19) 02/08/23 10:10 BUN 14 mg/dL (8-23) 02/08/23 10:10 Creatinine 0.8 mg/dL (0.5-0.9) 02/08/23 10:10 GFR Calculation Not Reportable 02/08/23 10:10 Glucose 113 mg/dL (65-115) 02/08/23 10:10 Calculated Osmolality 291 mOsm/kg (285-295) 02/08/23 10:10 Calcium 9.0 mg/dL (8.5-10.5) 02/08/23 10:10 Total Bilirubin 0.4 mg/dL (0.15-1.2) 02/08/23 10:10 AST 20 U/L (0-32) 02/08/23 10:10 ALT 16 U/L (0-33) 02/08/23 10:10 Alkaline Phosphatase 99 U/L (35-105) 02/08/23 10:10 Troponin T Baseline 8 ng/L (0-10) 02/08/23 10:10 Troponin T 120 Minute 6.07 ng/L (0-10) 02/08/23 12:17 Delta Troponin T -1.93 ABS# (0-10) L 02/08/23 12:17 Total Protein 6.9 g/dL (6.6-8.7) 02/08/23 10:10 Albumin 4.0 g/dL (3.5-5.2) 02/08/23 10:10 Globulin 2.9 g/dL (1.3-4.6) 02/08/23 10:10 Triglycerides 104 mg/dL (0-150) 02/08/23 10:10 Amylase 559 U/L (28-100) H* 02/08/23 10:10 Lipase 990 U/L (13-60) H 02/08/23 10:10 Urine Color Yellow (Yellow) 02/08/23 12:22 Urine Appearance Clear (CLEAR) 02/08/23 12:22 Urine pH 5 (5-7) 02/08/23 12:22 Ur Specific [place] 1.005 (1.005-1.030) 02/08/23 12:22 Urine Protein Trace (Negative) 02/08/23 12:22 Urine Glucose (UA) Norm (Normal) 02/08/23 12:22 Urine Ketones Negative (Negative) 02/08/23 12:22 Urine Blood 2+ (Negative) H 02/08/23 12:22 Urine Nitrate Negative (Negative) 02/08/23 12:22 Urine Bilirubin Neg (Negative) 02/08/23 12:22 Urine Urobilinogen Norm mg/dL (Negative) 02/08/23 12:22 Ur Leukocyte Esterase Negative (Negative) 02/08/23 12:22 Urine RBC 0-4 /hpf (0-2) H 02/08/23 12:22 Urine WBC 0-4 /hpf (0-5) H 02/08/23 12:22 Ur Squamous Epith Cells 0-4 /hpf (0-5) H 02/08/23 12:22 Amorphous Sediment Not Reportable 02/08/23 12:22 Urine Bacteria None /hpf (NONE) 02/08/23 12:22 A&P Assessment and plan (1) Pancreatitis: Pancreatitis most likely in setting of most likely recently passed gallstone. Appreciate CT abdomen pelvis results. Check MRCP. Check triglyceride level. No history of alcohol use or pancreatitis in the past. Troponin cycle negative. Conservative treatment. Start on IV fluids with normal saline at 75 cc/h. Protonix daily, Zofran as needed Pain regimen with morphine 1 mg every 4 hours as needed, [place] 5 mg every 6 hours as needed. Clear liquid diet for now. We will try to advance gradually if patient tolerates overly well. Does have leukocytosis most likely in setting of inflammation. Check Procal. Hold off on Abx. (2) Atrial fibrillation: Rate controlled with bradycardia. Hold off on beta-coleman. Continue with home dose of propafenone. Takes warfarin at home. INR therapeutic. Continue home dose of warfarin for now. (3) COPD (chronic obstructive pulmonary disease): No exacerbation. DuoNebs as needed. Qualifiers: COPD type: unspecified COPD Qualified Code(s): J44.9 - Chronic obstructive pulmonary disease, unspecified (4) Bradycardia: (5) Hypertension: Goal blood pressure less than 140/90 mmHg. Takes lisinopril 20 mg oral daily, metoprolol 25 mg daily, propafenone daily, hydrochlorothiazide. Hydralazine 10 mg IV every 4 hourly as needed for systolic blood pressure more than 160 mmHg. Hold off on antihypertensives including hydrochlorothiazide, lisinopril for now. Qualifiers: Hypertension type: essential hypertension Qualified Code(s): I10 - Essential (primary) hypertension (6) Hypothyroidism: Qualifiers: Hypothyroidism type: acquired Qualified Code(s): E03.9 - Hypothy roidism, unspecified Plan Full code. Clear liquid diet. Warfarin will suffice for DVT prophylaxis. Check INR daily. Protonix for PUD prophylaxis. Attestations Medical Necessity Statement*: Admission for more than 2 midnights for management of pancreatitis as patient is having limited oral intake, need of IV pain medications Diagnoses Pancreatitis K85.90 Atrial fibrillation I48.91 COPD (chronic obstructive pulmonary disease) J44.9 COPD type: unspecified COPD Bradycardia R00.1 Hypertension I10 Hypertension type: essential hypertension Hypothyroidism E03.9 Hypothyroidism type: acquired
[2023-02-08] MEDS: heparin 5,000 unit/mL INJ 1 mL 5000 UNIT SUBCUT (18:02)
[2023-02-08] MEDS: pantoprazole 40 mg SDV IVP (18:02)
[2023-02-08] MEDS: ondansetron 2 mg/ML SDV 2 mL 4 MG IVP (18:02)
[2023-02-08] MEDS: sodium chloride 0.9% 1,000 ML 100 ML IV (18:03)
[2023-02-08 18:59] LABS: INR 1.94 (0.8-1.2)
[2023-02-08 19:22] LABS: Iron 48 ug/dL (37-145); Percent Saturation 18.6 % (20-50); Thyroid Stimulating Hormone 0.78 uIU/mL (0.27-4.20); Total Iron Binding Capacity 257 mcg/dl; Unsaturated Iron Binding 209 ug/dL (112-347); Vitamin B12 335 pg/mL (232-1245)
[2023-02-08] MEDS: ipratropium-albuterol 3 mL Neb INHALATION (21:06)
[2023-02-08] MEDS: gabapentin 100 mg Capsule 200 MG PO (23:11)
[2023-02-08 23:12] LABS: Procalcitonin 0.07 ng/mL (0-0.5)
[2023-02-08] MEDS: propafenone 150 mg Tablet 225 MG PO (23:12)
[2023-02-09] VITALS (10 sets, daily range): BP systolic 125–146; BP diastolic 68–78; PULSE 65–80; RESP 15–20; TEMP 36.6–37.6; O2SAT 88–96
[2023-02-09] MEDS: ipratropium-albuterol 3 mL Neb INHALATION ×3 (02:41→14:50)
[2023-02-09] MEDS: sodium chloride 0.9% 1,000 ML 100 ML IV ×2 (04:46→18:10)
[2023-02-09 05:51] LABS: Basophils % 0.2 %; Eosinophils % 0.1 %; Hematocrit 42.5 % (37.0-47.0); Hemoglobin 13.9 g/dL (11.5-15.3); Lymphocytes # 1.7 10^3/uL (0.8-4.8); Lymphocytes % 8.3 %; Mean Corpuscular HGB Conc 32.7 g/dL (30.0-36.0); Mean Corpuscular Hemoglobin 32.3 pg (28.0-34.0); Mean Corpuscular Volume 98.6 fl (81-99); Mean Platelet Volume 9.2 fL (7.4-10.4); Monocytes # 1.1 10^3/uL (0.2-0.9); Monocytes % 5.4 %; Neutrophils # 17.73 10^3/uL (1.8-7.7); Neutrophils % 85.2 %; Nucleated Red Blood Cells % 0 %; Platelet Count 269 10^3/cmm (130-400); Red Blood Count 4.31 10^6/uL (4.1-5.3); Red Cell Distribution Width 13.5 % (12.1-15.1); White Blood Count 20.8 10^3/uL (4.0-10.0)
[2023-02-09 06:03] LABS: INR 1.94 (0.8-1.2)
[2023-02-09 06:19] LABS: Cholesterol 131 mg/dL (0-200); HDL Cholesterol 69 mg/dL (60-100); LDL Cholesterol Calculated 51 mg/dL (50-129); LDL HDL Ratio 0.74 RATIO (0.00-3.22); Triglycerides 57 mg/dL (0-150)
[2023-02-09] MEDS: propafenone 150 mg Tablet 225 MG PO ×3 (06:21→22:13)
[2023-02-09 06:23] LABS: Alanine Aminotransferase 12 U/L (0-33); Albumin Level 3.3 g/dL (3.5-5.2); Alkaline Phosphatase 86 U/L (35-105); Anion Gap 12.7 (5-19); Aspartate Amino Transferase 15 U/L (0-32); Blood Urea Nitrogen 12 mg/dL (8-23); Calcium 8.5 mg/dL (8.5-10.5); Carbon Dioxide 25 mmol/L (22-29); Chloride 105 mmol/L (98-107); Glucose 103 mg/dL (65-115); Magnesium 1.8 mg/dL (1.7-2.3); Osmolality Calculated 288 mOsm/kg (285-295); Potassium 3.7 mmol/L (3.5-5.1); Sodium 139 mmol/L (136-145); Total Bilirubin 0.5 mg/dL (0.15-1.2); Total Protein 6.3 g/dL (6.6-8.7)
[2023-02-09 06:28] LABS: Estmated Average Glucose 117; Hemoglobin A1C 5.7 % (4.0-6.0)
[2023-02-09 06:36] LABS: Folate Level 5.2 ng/mL (4.8-37.3)
[2023-02-09] MEDS: levothyroxine 50 mcg Tablet PO (08:00)
[2023-02-09] MEDS: piperacillin-tazobactam 3.375 GM in sodium chloride 0.9% (plus) 50 ML IV ×2 (12:09→20:13)
[2023-02-09] MEDS: warfarin 3 mg Tablet 6 MG PO (13:57)
--- NOTE | 2023-02-09 14:40 | PM.PN ---
Subjective Subjective: Today morning patient seen sitting up in chair. Having her clear liquid diet. Denies of any vomiting but does still have nausea. States abdominal pain is better but still a little rough. Rates it /10. Has remained hemodynamically stable. Tmax in last 24 hours since admission up to 99.7 Fahrenheit. Remains on room air. Vitals appreciated. Vitals/I&O/Wt Last Vital Signs Temp 98 F 02/09/23 11:51 Pulse 68 02/09/23 11:51 Resp 18 02/09/23 11:51 BP 131/68 02/09/23 11:51 Pulse Ox 92 02/09/23 11:51 O2 Del Method Room Air 02/09/23 11:51 02/08/23 02/09/23 02/09/23 22:59 06:59 14:59 Intake Total 1000 / 1000 1000 / 2000 480 / 480 Balance 1000 / 1000 1000 / 2000 480 / 480 Weight last 48 hrs Weight 104.281 kg Weight 99.79 kg Physical Exam Narrative: General: In mild distress because of abdominal pain and nausea vomiting, AO times x3 HEENT: PERRLA, pupils bilaterally equal and reactive Chest: Normal vesicular breath sounds, no added sounds, equal good air entry bilaterally CVS: S1-S2 irregularly irregular, no murmurs, no tachycardia, no gallops, no rubs Abdomen: Soft, tender in epigastric area with hyperactive bowel sounds, no organomegaly Neuro: No focal deficits, no facial deformity, AO x3, power 5/5 in all limbs Data 02/09/23 04:40 02/09/23 04:40 Micro: Microbiology 02/09/23 13:42 Blood Culture - Preliminary Blood SPECIMEN COLLECTED A&P Assessment and plan (1) Pancreatitis: Pancreatitis most likely in setting of most likely recently passed gallstone. MRCP ruled out gallbladder calculi. Triglycerides normal. Troponin cycle negative. Conservative treatment. Continue with normal saline at 100 cc/h. Protonix daily, Zofran as needed Pain regimen with morphine 1 mg every 4 hours as needed, [place] 5 mg every 6 hours as needed. Advance to full liquid diet for now. We will try to advance gradually if patient tolerates overly well. Leukocytosis slightly worsened today. Mild fever up to 99.7 Fahrenheit overnight. Found empirically started on Zosyn. (2) Atrial fibrillation: Rate controlled with bradycardia. Hold off on beta-coleman. Continue with home dose of propafenone. Takes warfarin at home. INR therapeutic. Continue home dose of warfarin for now. (3) COPD (chronic obstructive pulmonary disease): No exacerbation. DuoNebs as needed. Qualifiers: COPD type: unspecified COPD Qualified Code(s): J44.9 - Chronic obstructive pulmonary disease, unspecified (4) Bradycardia: (5) Hypertension: Goal blood pressure less than 140/90 mmHg. Takes lisinopril 20 mg oral daily, metoprolol 25 mg daily, propafenone daily, hydrochlorothiazide. Hydralazine 10 mg IV every 4 hourly as needed for systolic blood pressure more than 160 mmHg. Hold off on antihypertensives including hydrochlorothiazide, lisinopril for now. Qualifiers: Hypertension type: essential hypertension Qualified Code(s): I10 - Essential (primary) hypertension (6) Hypothyroidism: Qualifiers: Hypothyroidism type: acquired Qualified Code(s): E03.9 - Hypothyroidism, unspecified Plan Full code. Full liquid diet. Warfarin will suffice for DVT prophylaxis. Check INR daily. Protonix for PUD prophylaxis. Attestations Medical Necessity Statement*: Requires further hospitalization for management of pancreatitis while diet is gradually advanced. Diagnoses Pancreatitis K85.90 Atrial fibrillation I48.91 COPD (chronic obstructive pulmonary disease) J44.9 COPD type: unspecified COPD Bradycardia R00.1 Hypertension I10 Hypertension type: essential hypertension Hypothyroidism E03.9 Hypothyroidism type: acquired
[2023-02-09] MEDS: pantoprazole 40 mg SDV IVP (17:29)
[2023-02-09] MEDS: gabapentin 100 mg Capsule 200 MG PO (20:13)
[2023-02-10] VITALS (7 sets, daily range): BP systolic 122–156; BP diastolic 69–84; PULSE 102–120; RESP 16–20; TEMP 36.6–37.4; O2SAT 92–97
[2023-02-10] MEDS: sodium chloride 0.9% 1,000 ML 100 ML IV (04:25)
[2023-02-10] MEDS: piperacillin-tazobactam 3.375 GM in sodium chloride 0.9% (plus) 50 ML IV (04:25)
[2023-02-10 05:25] LABS: Basophils # 0.1 10^3/uL (0.0-0.1); Basophils % 0.2 %; Eosinophils # 0.1 10^3/uL (0.0-0.8); Eosinophils % 0.3 %; Hematocrit 39.4 % (37.0-47.0); Hemoglobin 12.9 g/dL (11.5-15.3); Lymphocytes # 1.5 10^3/uL (0.8-4.8); Lymphocytes % 6.4 %; Mean Corpuscular HGB Conc 32.7 g/dL (30.0-36.0); Mean Corpuscular Hemoglobin 31.5 pg (28.0-34.0); Mean Corpuscular Volume 96.1 fl (81-99); Monocytes # 1.4 10^3/uL (0.2-0.9); Monocytes % 5.8 %; Neutrophils % 83.1 %; Nucleated Red Blood Cells % 0 %; Platelet Count 242 10^3/cmm (130-400); Red Cell Distribution Width 13.4 % (12.1-15.1); White Blood Count 23.3 10^3/uL (4.0-10.0)
[2023-02-10 05:41] LABS: Alanine Aminotransferase 11 U/L (0-33); Alkaline Phosphatase 130 U/L (35-105); Anion Gap 16.8 (5-19); Aspartate Amino Transferase 18 U/L (0-32); Blood Urea Nitrogen 9 mg/dL (8-23); Calcium 8.2 mg/dL (8.5-10.5); Carbon Dioxide 21 mmol/L (22-29); Chloride 103 mmol/L (98-107); Globulin 3.1 g/dL (1.3-4.6); Glucose 98 mg/dL (65-115); Osmolality Calculated 283 mOsm/kg (285-295); Potassium 3.8 mmol/L (3.5-5.1); Sodium 137 mmol/L (136-145); Total Bilirubin 0.6 mg/dL (0.15-1.2); Total Protein 6.1 g/dL (6.6-8.7)
[2023-02-10 05:49] LABS: Amylase 140 U/L (28-100); Lipase 63 U/L (13-60)
[2023-02-10] MEDS: propafenone 150 mg Tablet 225 MG PO ×2 (06:13→14:20)
[2023-02-10] MEDS: levothyroxine 50 mcg Tablet PO (08:09)
--- NOTE | 2023-02-10 11:46 | P.DS_ITS ---
Discharge Providers Date of Admission: 02/08/23 17:15 Date of Discharge: February 10, 2023 Attending Provider at Admission: Kevin Valenzuela MD Attending Provider at Discharge: Kevin Valenzuela MD Primary Care Provider: Iram Bajwa Diagnoses at Discharge Discharge Diagnosis (1) Pancreatitis: Status: Acute (2) Atrial fibrillation: Status: Acute (3) COPD (chronic obstructive pulmonary disease): Status: Acute Qualifiers: COPD type: unspecified COPD Qualified Code(s): J44.9 - Chronic obstructive pulmonary disease, unspecified (4) Bradycardia: Status: Acute (5) Hypertension: Status: Acute Qualifiers: Hypertension type: essential hypertension Qualified Code(s): I10 - Essential (primary) hypertension (6) Hypothyroidism: Status: Acute Qualifiers: Hypothyroidism type: acquired Qualified Code(s): E03.9 - Hypothyroidism, unspecified Reason for Visit Reason for Visit: low abd pain Hospital Course Hospital Course Anya Navarro is a 72 year old female with past medical history of hypertension, hyperlipidemia, atrial fibrillation on chronic anticoagulation with Coumadin presents to the ER with abdominal pain radiating to back and into her chest for the last 24 hours along with nausea but no vomiting along with multiple episodes of diarrhea.? She denies any difficulty in breathing, dysuria, headache, alcohol use, NSAIDs, history of similar complaints or pancreatitis in the past or any changes in medications recently. Patient was admitted to the hospital for evaluation and management of pancreatitis. Gallbladder obstruction was ruled out by MRCP on admission. Triglyceride levels were within normal limits. Patient was treated conservatively with pain management, IV hydration and diet was gradually advanced. Patient has tolerated full liquid diet well for last 24 hours without any needs of IV pain medications. She has been discharged hemodynamically stable condition with advised to continue taking multiple small meals including full liquid diet for next 3 days and then advance gradually to a soft/brat diet for 1 week. Famotidine has been changed to Protonix for next 4 weeks. Physical Exam Narrative: General: In mild distress because of abdominal pain and nausea vomiting, AO times x3 HEENT: PERRLA, pupils bilaterally equal and reactive Chest: Normal vesicular breath sounds, no added sounds, equal good air entry bilaterally CVS: S1-S2 irregularly irregular, no murmurs, no tachycardia, no gallops, no rubs Abdomen: Soft, tender in epigastric area with hyperactive bowel sounds, no organomegaly Neuro: No focal deficits, no facial deformity, AO x3, power 5/5 in all limbs Discharge Data Studies Completed and Pending Completed Studies During Hospitalization Category Date Time Status CT abdomen pelvis w con* [id number] Stat Cat Scan 02/08/23 11:13 Completed XR chest 1V portable [id number] Stat Exams 02/08/23 10:19 Completed MR MRCP [id number] Stat MRI 02/08/23 12:30 Completed Pending at discharge Category Date Time Status Blood Culture Stat Lab 02/09/23 14:46 Results Clostridioides Difficile PCR Routine Lab 02/09/23 11:55 Ordered Enteric Bacterial Panel by PCR Routine Lab 02/09/23 11:55 Ordered Enteric Parasite Panel by PCR Routine Lab 02/09/23 11:55 Ordered Immunochemical Fecal OCB Routine Lab 02/09/23 11:55 Ordered Lactoferrin Routine Lab 02/09/23 11:55 Ordered Prothrombin Time INR AM LABS Lab 02/11/23 04:00 Ordered Laboratory Results WBC 23.3 10^3/uL (4.0-10.0) H 02/10/23 05:02 RBC 4.10 10^6/uL (4.1-5.3) 02/10/23 05:02 Hgb 12.9 g/dL (11.5-15.3) 02/10/23 05:02 Hct 39.4 % (37.0-47.0) 02/10/23 05:02 MCV 96.1 fl (81-99) 02/10/23 05:02 MCH 31.5 pg (28.0-34.0) 02/10/23 05:02 MCHC 32.7 g/dL (30.0-36.0) 02/10/23 05:02 RDW 13.4 % (12.1-15.1) 02/10/23 05:02 Plt Count 242 10^3/cmm (130-400) 02/10/23 05:02 MPV 9.0 fL (7.4-10.4) 02/10/23 05:02 Neut % (Auto) 83.1 % 02/10/23 05:02 Lymph % (Auto) 6.4 % 02/10/23 05:02 Walsh % (Auto) 5.8 % 02/10/23 05:02 Eos % (Auto) 0.3 % 02/10/23 05:02 Baso % (Auto) 0.2 % 02/10/23 05:02 Neut # (Auto) 19.40 10^3/uL (1.8-7.7) H 02/10/23 05:02 Lymph # (Auto) 1.5 10^3/uL (0.8-4.8) 02/10/23 05:02 Walsh # (Auto) 1.4 10^3/uL (0.2-0.9) H 02/10/23 05:02 Eos # (Auto) 0.1 10^3/uL (0.0-0.8) 02/10/23 05:02 Baso # (Auto) 0.1 10^3/uL (0.0-0.1) 02/10/23 05:02 Nucleated RBC % (auto) 0 % 02/10/23 05:02 Nucleated RBCs # 0.0 /100WBC 02/10/23 05:02 PT 26.10 SECONDS (12.1-14.9) H 02/10/23 05:02 INR 2.30 (0.8-1.2) H 02/10/23 05:02 Sodium 137 mmol/L (136-145) 02/10/23 05:02 Potassium 3.8 mmol/L (3.5-5.1) 02/10/23 05:02 Chloride 103 mmol/L (98-107) 02/10/23 05:02 Carbon Dioxide 21 mmol/L (22-29) L 02/10/23 05:02 Anion Gap 16.8 (5-19) 02/10/23 05:02 BUN 9 mg/dL (8-23) 02/10/23 05:02 Creatinine 0.6 mg/dL (0.5-0.9) 02/10/23 05:02 GFR Calculation Not Reportable 02/10/23 05:02 Glucose 98 mg/dL (65-115) 02/10/23 05:02 Estimat Average Glucose 117 02/09/23 04:40 Hemoglobin A1c 5.7 % (4.0-6.0) 02/09/23 04:40 Calculated Osmolality 283 mOsm/kg (285-295) L 02/10/23 05:02 Calcium 8.2 mg/dL (8.5-10.5) L 02/10/23 05:02 Phosphorus 3.0 mg/dL (2.5-4.5) 02/09/23 04:40 Magnesium 1.8 mg/dL (1.7-2.3) 02/09/23 04:40 Iron 48 ug/dL (37-145) 02/08/23 18:25 TIBC 257 mcg/dl 02/08/23 18:25 % Saturation 18.6 % (20-50) L 02/08/23 18:25 Unsat Iron Binding 209 ug/dL (112-347) 02/08/23 18:25 Total Bilirubin 0.6 mg/dL (0.15-1.2) 02/10/23 05:02 AST 18 U/L (0-32) 02/10/23 05:02 ALT 11 U/L (0-33) 02/10/23 05:02 Alkaline Phosphatase 130 U/L (35-105) H 02/10/23 05:02 Troponin T Baseline 8 ng/L (0-10) 02/08/23 10:10 Troponin T 120 Minute 6.07 ng/L (0-10) 02/08/23 12:17 Delta Troponin T -1.93 ABS# (0-10) L 02/08/23 12:17 Total Protein 6.1 g/dL (6.6-8.7) L 02/10/23 05:02 Albumin 3.0 g/dL (3.5-5.2) L 02/10/23 05:02 Globulin 3.1 g/dL (1.3-4.6) 02/10/23 05:02 Triglycerides 57 mg/dL (0-150) 02/09/23 04:40 Cholesterol 131 mg/dL (0-200) 02/09/23 04:40 LDL Cholesterol, Calc 51 mg/dL (50-129) 02/09/23 04:40 HDL Cholesterol 69 mg/dL (60-100) 02/09/23 04:40 LDL/HDL Ratio 0.74 RATIO (0.00-3.22) 02/09/23 04:40 Cholesterol/HDL Ratio 1.90 mg/dL (0.0-4.40) 02/09/23 04:40 Amylase 140 U/L (28-100) H 02/10/23 05:02 Lipase 63 U/L (13-60) H 02/10/23 05:02 Vitamin B12 335 pg/mL (232-1245) 02/08/23 18:25 Folate 5.2 ng/mL (4.8-37.3) 02/09/23 04:40 Procalcitonin 0.07 ng/mL (0-0.5) 02/08/23 18:25 TSH 0.78 uIU/mL (0.27-4.20) 02/08/23 18:25 Urine Color Yellow (Yellow) 02/08/23 12:22 Urine Appearance Clear (CLEAR) 02/08/23 12:22 Urine pH 5 (5-7) 02/08/23 12:22 Ur Specific [place] 1.005 (1.005-1.030) 02/08/23 12:22 Urine Protein Trace (Negative) 02/08/23 12:22 Urine Glucose (UA) Norm (Normal) 02/08/23 12:22 Urine Ketones Negative (Negative) 02/08/23 12:22 Urine Blood 2+ (Negative) H 02/08/23 12:22 Urine Nitrate Negative (Negative) 02/08/23 12:22 Urine Bilirubin Neg (Negative) 02/08/23 12:22 Urine Urobilinogen Norm mg/dL (Negative) 02/08/23 12:22 Ur Leukocyte Esterase Negative (Negative) 02/08/23 12:22 Urine RBC 0-4 /hpf (0-2) H 02/08/23 12:22 Urine WBC 0-4 /hpf (0-5) H 02/08/23 12:22 Ur Squamous Epith Cells 0-4 /hpf (0-5) H 02/08/23 12:22 Amorphous Sediment Not Reportable 02/08/23 12:22 Urine Bacteria None /hpf (NONE) 02/08/23 12:22 Imaging MRI: Radiologist's impression: IMPRESSION: 1. Normal sized common bile duct and pancreatic duct. 2. Calcification described by CT is not evident by MRI. No duct dilatation. 3. Mild diffuse peripancreatic edema consistent with pancreatitis. No abscess or pseudocyst CT Abd/Pel: Radiologist's impression: IMPRESSION: 1.? Findings compatible with acute pancreatitis described above. 2.? No evidence of drainable fluid collection or abscess. 3.? Portal vein splenic vein appear patent. 4.? Pancreatic head calcification adjacent to distal common bile duct. Distal common bile duct obstruction difficult to entirely exclude although no bile duct dilatation. This can be further evaluated with MRCP or HIDA scan to evaluate common bile duct and small bowel activity 5.? Additional incidental pancreatic calcifications. 6.? Severe central canal stenosis L4-5 described above. This can be followed up with lumbar spine MRI on an elective basis. 7.? No other acute findings. Notified MERLINE Mullen at 02/08/2023 11:58 AM. Vitals Last Vital Signs Temp 97.8 F 02/10/23 07:32 Pulse 102 H 02/10/23 10:09 Resp 18 02/10/23 10:09 BP 156/84 02/10/23 07:32 Pulse Ox 92 02/10/23 10:09 O2 Del Method Room Air 02/10/23 10:09 Discharge Plan Discharge Patient Disposition: Home Condition: Stable Prescriptions: New tramadol 50 mg tablet 50 mg PO Q8H PRN (Reason: pain) Qty: 14 0RF pantoprazole [Protonix] 40 mg tablet,delayed release (DR/EC) 40 mg PO QAM 28 Days Qty: 28 0RF Continued levothyroxine 50 mcg capsule 50 mcg PO DAILY gabapentin 100 mg capsule 200 mg PO .bedtime warfarin 1 mg tablet 1 mg PO DAILY Protocol: Dose Management Condition: Saturday Dose/Route: 6 mg Instruction: 2 x 3 mg tablets Condition: Saturday Dose/Route: 3 mg Instruction: 1 x 3 mg tablet Condition: Saturday Dose/Route: 6 mg Instruction: 2 x 3 mg tablets Condition: Saturday Dose/Route: 3 mg Instruction: 1 x 3 mg tablet Condition: Dose/Route: 6 mg Instruction: 2 x 3 mg tablets Condition: Saturday Dose/Route: 6 mg Instruction: 2 x 3 mg tablets Condition: Saturday Dose/Route: 6 mg Instruction: 2 x 3 mg tablets Protocol Text: Adjustment Start Date: 02/07/23 INR Value: 2.0 INR Date: 02/04/23 Recheck Date: 02/14/23 Rx Instructions: daily except Tuesdays and albuterol sulfate 90 mcg/actuation HFA aerosol inhaler 2 puff inhalation Q6H PRN (Reason: Shortness Of Breath) metoprolol succinate 25 mg tablet extended release 24 hr 25 mg PO DAILY propafenone 225 mg tablet 225 mg PO Q8H Qty: 270 3RF atorvastatin 10 mg tablet 10 mg PO DAILY lisinopril 20 mg tablet 20 mg PO DAILY amlodipine 5 mg tablet 5 mg PO DAILY warfarin 3 mg tablet See Rx Instructions .ROUTE .COMPLEX Protocol: Dose Management Condition: Saturday Dose/Route: 6 mg Instruction: 2 x 3 mg tablets Condition: Saturday Dose/Route: 3 mg Instruction: 1 x 3 mg tablet Condition: Saturday Dose/Route: 6 mg Instruction: 2 x 3 mg tablets Condition: Saturday Dose/Route: 3 mg Instruction: 1 x 3 mg tablet Condition: Dose/Route: 6 mg Instruction: 2 x 3 mg tablets Condition: Saturday Dose/Route: 6 mg Instruction: 2 x 3 mg tablets Condition: Saturday Dose/Route: 6 mg Instruction: 2 x 3 mg tablets Protocol Text: Adjustment Start Date: 02/07/23 INR Value: 2.0 INR Date: 02/04/23 Recheck Date: 02/14/23 Rx Instructions: TAKE 3 MG ON SATURDAY AND SATURDAY AND TAKE 6 MG ON REMAINING DAYS. SATURDAY, SATURDAY, SATURDAY, SATURDAY AND SATURDAY. acetaminophen 500 mg Tablet 500 mg PO Q6H PRN (Reason: Pain) amoxicillin-pot clavulanate 875-125 mg tablet 1 tab PO Q12H Qty: 10 0RF Discontinued famotidine 20 mg tablet 20 mg PO DAILY hydrochlorothiazide 12.5 mg tablet 12.5 mg PO DAILY PRN (Reason: Edema) Discharge Orders: Discharge Order (Routine); Ordered 02/10/23 Ordered By: Kevin Valenzuela Referrals: Iram Bajwa PA [Primary Care Provider] - 7-10 days (Please call saturday to schedule an appointment with Iram Bajwa.) Discharge Diet: Advance as tolerated, GI Soft and Full LIquid Discharge Activity: Resume usual activity and Increase activity as tolerated Patient Instructions: [place] Diet - Adult, Soft Diet (DC), Opioid Safety Activity Restrictions/Additional Instructions: Famotidine has been changed to Protonix for now. Do not take hydrochlorothiazide for now. For now take multiple small meals. For now continue with full liquid diet for next few days and advance to a soft/brat diet for 1 week and then to a regular diet within the next 10 days. Please check your blood pressure daily at home maintain a blood pressure diary and follow with the primary care provider within next 10 days. Continue taking your Coumadin dose as before. Discharge Attestations Time Spent in Discharge Care*: greater than 30 min Specific Discharge Activities: educating patient, discussing with pcp/other providers, discussing with catalytic case operator/social workers/dc planners, documenting/other paperwork and evaluating patient/reviewing data Status at Discharge: Cognitive status at discharge: cognitively intact , Behavioral status at discharge: cooperative , Functional status at discharge: independent ambulation , Overall status at discharge: patient is back to baseline Quality Metrics Clinical Quality Measures [ No reported AMI, CVA or VTE this stay] Coding Level of Care Code 65175 Total time (in minutes) for Discharge: 60 Diagnoses Pancreatitis K85.90 Atrial fibrillation I48.91 COPD (chronic obstructive pulmonary disease) J44.9 COPD type: unspecified COPD Bradycardia R00.1 Hypertension I10 Hypertension type: essential hypertension Hypothyroidism E03.9 Hypothyroidism type: acquired
[2023-02-10] MEDS: warfarin 3 mg Tablet 6 MG PO (14:25)
[2023-02-10] MEDS: ipratropium-albuterol 3 mL Neb INHALATION (14:35)
== END 2023-02-10 15:04 | disposition home or self-care (01) | DRG 440 ==
LOC: ER 13:36 → MEDSURG 16:23
PROVIDERS: Admitting Provider Student in an Organized Health Care Education/Training Program; Emergency Provider Nurse Practitioner; PCP Physician Assistant; Visit Provider Student in an Organized Health Care Education/Training Program
DX: K85.10 Biliary acute pancreatitis without necrosis or infection (principal); I10 Essential (primary) hypertension; E78.5 Hyperlipidemia, unspecified; I48.91 Unspecified atrial fibrillation; Z79.01 Long term (current) use of anticoagulants; Z79.51 Long term (current) use of inhaled steroids; J44.9 Chronic obstructive pulmonary disease, unspecified; E03.9 Hypothyroidism, unspecified; Z85.3 Personal history of malignant neoplasm of breast; Z92.21 Personal history of antineoplastic chemotherapy; Z92.3 Personal history of irradiation; G62.9 Polyneuropathy, unspecified; F17.200 Nicotine dependence, unspecified, uncomplicated
CPT/HCPCS: 12345; 36415; 71045; 74177; 74181; 80053; 80061; 81001; 82150; 82607; 82746; 83036; 83540; 83550; 83690; 83735; 84100; 84145; 84443; 84478; 84484; 85025; 85610; 87040; 93005; 94640; 94664; 96360; 96361; 96372; 99285; C9113; J1644; J2405; J2543; J7030; Q9967

== ENCOUNTER → 2023-04-25 13:07 | Outpatient (BNVA) | payer MEDICARE, SELFPAY | PROVIDERS: PCP Physician Assistant; Visit Provider Nurse Practitioner Family | DX: I48.91 Unspecified atrial fibrillation (principal); I10 Essential (primary) hypertension; F17.200 Nicotine dependence, unspecified, uncomplicated; Z79.01 Long term (current) use of anticoagulants | CPT/HCPCS: 99214 ==

== ENCOUNTER 2023-06-11 14:26 | Outpatient (CLI) | payer MEDICARE, SELFPAY ==
--- NOTE | 2023-06-11 15:07 | MM_ITS ---
WS: [id number] BILATERAL 3D TOMOSYNTHESIS DIGITAL DIAGNOSTIC MAMMOGRAPHY WITH CAD CLINICAL INFORMATION: ANNUAL - HX BR CA HISTORY: LEFT lumpectomy COMPARISON: 2021 TECHNIQUE: Bilateral CC, MLO, and ML views. FINDINGS: Scattered fibroglandular densities bilaterally. Dystrophic calcifications at the lumpectomy site LEFT breast with parenchymal fibrosis. Incidental punctate calcifications. Vascular calcification. No suspicious focal mass, asymmetry, calcifications, or architectural distortion. No evidence of lois gnancy. IMPRESSION: MM/[place] [id number] BI-RADS: 2-Benign FOLLOW UP: 1 Year Follow-up Recommend return to annual diagnostic mammography.
== END 2023-06-11 14:27 | disposition home or self-care (01) ==
LOC: RAD 14:26
PROVIDERS: PCP Physician Assistant; Visit Provider Physician Assistant
DX: Z85.3 Personal history of malignant neoplasm of breast (principal); Z12.31 Encounter for screening mammogram for malignant neoplasm of breast
CPT/HCPCS: 77062; G0279

== ENCOUNTER 2023-11-26 08:45 | Outpatient (CLI) | payer MEDICARE, SELFPAY ==
--- NOTE | 2023-11-26 08:48 | CT_ITS ---
WS: [id number] LDCT LUNG CANCER SCREENING HISTORY: NICOTINE DEPENDENCE, CIGARETTES TECHNIQUE: Axial imaging performed from the apices to 1 cm below the costophrenic angles. Coronal and sagittal reformats are submitted with axial MIP series. All CT scans at [facility] use at least one of these dose optimization techniques: automated exposure control; mA and/or kV adjustment per patient size (includes targeted exams where dose is matched to clinical indication); or iterativ e reconstruction. DLP: 88.22 mGy.cm DIvol: Mean CTDIvol: 2.00 (mGy) COMPARISON: 11/22/2022 Diagnostic quality: Satisfactory Lungs: No pulmonary mass or nodule. Mild pulmonary hyperexpansion. No endobronchial lesions. Heart: Normal size heart with no pericardial effusion.. Other findings: Moderate atherosclerosis aorta. No aneurysm. Normal size pulmonary artery. Lumpectomy with dystrophic calcifications LEFT breast. Mildly prominent LEFT thyroid. Probably goiter but uncha nged. Bilateral adrenal low-attenuation adrenal thickening, unchanged. CT/CT lung screening [id number] IMPRESSION: LUNG-RADS: 1-Negative FOLLOW UP: 12 Month: Continue annual screening with LDCT OTHER FINDINGS (S MODIFIER): None.
== END 2023-11-26 08:46 | disposition home or self-care (01) ==
LOC: RAD 08:45
PROVIDERS: PCP Physician Assistant; Visit Provider Physician Assistant
DX: R92.8 Other abnormal and inconclusive findings on diagnostic imaging of breast (principal); F17.210 Nicotine dependence, cigarettes, uncomplicated; Z98.890 Other specified postprocedural states; E07.89 Other specified disorders of thyroid; E27.8 Other specified disorders of adrenal gland
CPT/HCPCS: 71271

== ENCOUNTER → 2024-02-10 10:52 | Outpatient (BNVA) | payer MEDICARE, SELFPAY | PROVIDERS: PCP Physician Assistant; Visit Provider Internal Medicine Cardiovascular Disease | DX: I48.91 Unspecified atrial fibrillation (principal); I10 Essential (primary) hypertension; F17.200 Nicotine dependence, unspecified, uncomplicated; Z79.01 Long term (current) use of anticoagulants | CPT/HCPCS: 99213 ==

== ENCOUNTER → 2024-03-10 10:34 | Outpatient (BNVA) | payer MEDICARE, SELFPAY | PROVIDERS: PCP Physician Assistant; Visit Provider Internal Medicine Cardiovascular Disease | DX: R00.1 Bradycardia, unspecified (principal); I48.91 Unspecified atrial fibrillation | CPT/HCPCS: 85610 ==

== ENCOUNTER → 2024-08-10 10:50 | Outpatient (BNVA) | payer MEDICARE, SELFPAY | PROVIDERS: PCP Physician Assistant; Visit Provider Nurse Practitioner Family | DX: I48.91 Unspecified atrial fibrillation (principal); R00.1 Bradycardia, unspecified; I10 Essential (primary) hypertension; Z79.01 Long term (current) use of anticoagulants; F17.200 Nicotine dependence, unspecified, uncomplicated | CPT/HCPCS: 99214 ==

== ENCOUNTER 2024-11-26 15:37 | Outpatient (CLI) | payer MEDICARE, SELFPAY ==
--- NOTE | 2024-11-26 15:56 | XR_ITS ---
WS: [email or web address] SCREENING DEXA SCAN [employer] TV CLINICAL INFORMATION: POST MENOPAUSAL COMPARISON: 2021 FINDINGS: The L1-L4 bone mineral density measures 1.141 g/cm2. This corresponds to a T score score of -0.3 and Z score of 0.2. Left femoral neck bone mineral density measures 0.923 g/cm2. This corresponds to a T score of -0.7 and Z score of 0.2. Right femoral neck bone mineral density measures 0.908 g/cm2. This corresponds to a T score -0.8of and Z score of 0.1. Mean femoral neck bone mineral density measures 0.916 g/cm2. This corresponds to a T score of -0.7 and Z score of 0.1. XR/XR DEXA axial skeleton* [id number] IMPRESSION: Normal bone mineralization. Patient's FRAX calculated 10 year probability for major osteoporotic fracture i s 15.6% and osteoporotic hip fracture is 4.2%.
== END 2024-11-26 15:38 | disposition home or self-care (01) ==
PROVIDERS: PCP Physician Assistant; Visit Provider Physician Assistant
DX: Z78.0 Asymptomatic menopausal state (principal)
CPT/HCPCS: 77080

== ENCOUNTER 2024-11-27 07:48 | Outpatient (CLI) | payer MEDICARE, SELFPAY ==
--- NOTE | 2024-11-27 07:52 | CT_ITS ---
WS: [id number] LDCT LUNG CANCER SCREENING TECHNIQUE: Noncontrast CT of the chest with coronal and sagittal reformatted images. CLINICAL INFORMATION: NICOTINE DEPENDENCE,CIGARETTES COMPARISON: 11/26/2023 DLP: 87.80 mGy.cm DIvol: Mean CTDIvol: 2.00 (mGy) All CT scans at [facility] use at least one of these dose optimization techniques: automated exposure control; mA and/or kV adjustment per patient size (includes targeted exams where dose is matched to clinical indication); or iterative reconstruction. FINDINGS: No new suspicious pulmonary parenchymal abnormalities. Small 4 mm fibrotic opacity RIGHT upper lobe laterally Enlarged LEFT thyroid. Aortic calcification. Coronary calcification. No mediastinal or hilar lymphadenopathy. No axillary lymphadenopathy. Lumpectomy changes LEFT breast with dystrophic calcifications. Bilateral adrenal thickening unchanged. Fatty atrophy of the pancreas. Small esophageal hernia. Moderate thoracic kyphosis. Chronic anterior wedging in the midthoracic spine. CT/CT lung screening [id number] IMPRESSION: LUNG-RADS: 2-Benign Appearance or Behavior FOLLOW UP: 12 Month: Continue annual screening with LDCT
== END 2024-11-27 07:49 | disposition home or self-care (01) ==
PROVIDERS: PCP Physician Assistant; Visit Provider Physician Assistant
DX: Z12.2 Encounter for screening for malignant neoplasm of respiratory organs (principal); F17.210 Nicotine dependence, cigarettes, uncomplicated; R91.8 Other nonspecific abnormal finding of lung field; E04.9 Nontoxic goiter, unspecified; I70.0 Atherosclerosis of aorta; I25.10 Atherosclerotic heart disease of native coronary artery without angina pectoris; Z98.890 Other specified postprocedural states; R92.1 Mammographic calcification found on diagnostic imaging of breast; E27.8 Other specified disorders of adrenal gland; K86.89 Other specified diseases of pancreas; K44.9 Diaphragmatic hernia without obstruction or gangrene; M40.294 Other kyphosis, thoracic region; M48.54XD Collapsed vertebra, not elsewhere classified, thoracic region, subsequent encounter for fracture with routine healing
CPT/HCPCS: 71271

== ENCOUNTER 2024-12-14 11:39 | Outpatient (CLI) | payer MEDICARE, SELFPAY ==
--- NOTE | 2024-12-14 12:00 | USCV_ITS ---
Anya Navarro Age: 74 Gender: F : 1950 Exam Date: 12/14/2024 11:58 Ordering Phys: Alicia Middleton Technologist: [place] [facility] [place]: murmur BP: 132 / 70 HR: 60 Rhythm: Sinus Technical Quality: Adequate MEASUREMENTS (Male / Female) Normal Values 2D ECHO LV Diastolic Diameter PLAX 3.6 cm 4.2 - 5.9 / 3.9 - 5.3 cm IVS Diastolic Thickness 1.0 cm 0.6 - 1.0 / 0.6 - 0.9 cm IVS Systolic Thickness 1.4 cm LVPW Diastolic Thickness 1.2 cm 0.6 - 1.0 / 0.6 - 0.9 cm LVPW Systolic Thickness 1.5 cm LVOT Diameter 2.0 cm LV Ejection Fraction 2D Teich 55.4 % LV Ejection Fraction MOD 4C 67.1 % LV Ejection Fraction MOD 2C 67.1 % LV Ejection Fraction 2C AL 66.0 % LA Diameter 3.8 cm RA Systolic Volume 4C AL 50.6 ml RA Systolic Volume 4C MOD 51.0 ml Aorta at Sinotubular Diameter 2.5 cm IVC Diameter 2.3 cm M-MODE LA Ao Ratio MM 1.5 AV Cusp Separation MM 2.1 cm DOPPLER AV Peak Velocity 173.0 cm/s LVOT Peak Velocity 104.0 cm/s AV Area Cont Eq vti 2.4 cm squared AV Area Cont Eq pk 1.9 cm squared MV Peak Velocity 98.0 cm/s MV Area PHT 4.4 cm squared Mitral E to A Ratio 1.2 TV Peak Velocity 313.5 cm/s TR Peak Velocity 341.0 cm/s TR Peak Gradient 46.5 mmHg PV Peak Velocity 115.0 cm/s FINDINGS Left Ventricle Left ventricle is normal in size. LV systolic function is normal with EF of 55-60%. No regional wall motion abnormalities are seen. Right Ventricle Normal in size and function Right Atrium Normal in size Left Atrium Dilated Mitral Valve Mild mitral annular calcification. Mild mitral regurgitation Aortic Valve Aortic valve is thickened and calcified. No significant stenosis or regurgitation Tricuspid Valve Mild tricuspid regurgitation. RVSP is45-50 mmHg. This is consistent with moderate pulmonary hypertension Pulmonic Valve Not well visualized Pericardium Normal Aorta Normal in size IVC Not well visualized CONCLUSIONS LV systolic function is normal with EF of 55-60% Left atrial dilation Left atrial dilation Mild mitral regurgitation Mild tricuspid regurgitation Moderate pulmonary hypertension Mohamud Matias MD (Electronically Signed) Final Date: 27 December 2024 14:39 S
== END 2024-12-14 11:40 | disposition home or self-care (01) ==
PROVIDERS: PCP Physician Assistant; Visit Provider Nurse Practitioner Family
DX: R01.1 Cardiac murmur, unspecified (principal); R93.1 Abnormal findings on diagnostic imaging of heart and coronary circulation; I34.81 Nonrheumatic mitral (valve) annulus calcification; I34.0 Nonrheumatic mitral (valve) insufficiency; I35.8 Other nonrheumatic aortic valve disorders; I07.1 Rheumatic tricuspid insufficiency
CPT/HCPCS: 93306

== ENCOUNTER 2025-01-14 10:04 | Outpatient (CLI) | payer MEDICARE, SELFPAY ==
--- NOTE | 2025-01-14 10:10 | MM_ITS ---
WS: [id number] BILATERAL 3D TOMOSYNTHESIS DIGITAL DIAGNOSTIC MAMMOGRAPHY WITH CAD CLINICAL INFORMATION: HX OF BREAST CANCER HISTORY: LEFT lumpectomy COMPARISON: 2022 TECHNIQUE: Bilateral CC, MLO, and ML views. FINDINGS: Scattered fibroglandular densities bilaterally. Dystrophic calcifications at the lumpectomy site LEFT breast. Associated parenchymal fibrosis. Incidental punctate calcifications. Vascular calcifications. Treatment-related changes LEFT breast No suspicious focal mass, asymmetry, calcifications, or architectural distortion. No evidence of malignancy. MM/MM diag tomosynthesis [id number] IMPRESSION: DENSITY: There are scattered areas of fibroglandular density. BI-RADS: 2 - Benign. FOLLOW UP: 1 Year Follow-up Recommend return to annual diagnostic mammography.
== END 2025-01-14 10:05 | disposition home or self-care (01) ==
LOC: RAD 10:06
PROVIDERS: PCP Physician Assistant; Visit Provider Physician Assistant
DX: Z08 Encounter for follow-up examination after completed treatment for malignant neoplasm (principal); Z85.3 Personal history of malignant neoplasm of breast
CPT/HCPCS: 77062; G0279

== ENCOUNTER → 2025-01-18 13:50 | Outpatient (BNVA) | payer MEDICARE, SELFPAY | PROVIDERS: PCP Physician Assistant; Visit Provider Internal Medicine Cardiovascular Disease | DX: I48.91 Unspecified atrial fibrillation (principal); Z79.899 Other long term (current) drug therapy; G47.33 Obstructive sleep apnea (adult) (pediatric); I10 Essential (primary) hypertension; R00.1 Bradycardia, unspecified; Z79.01 Long term (current) use of anticoagulants; F17.200 Nicotine dependence, unspecified, uncomplicated | CPT/HCPCS: 99214 ==

== ENCOUNTER 2025-05-24 21:31 | Inpatient (IN) | payer MEDICARE, SELFPAY ==
[2025-05-24 21:31] VITALS: BP 139/87; PULSE 69; RESP 20; TEMP 37.5; O2SAT 91; BMI 35.2
--- NOTE | 2025-05-24 21:34 | XRR_ITS ---
PROCEDURE INFORMATION: Exam: XR Chest Exam date and time: 05/24/2025 9:35 PM Age: 74 years old Clinical indication: Cough and fever and shortness of breath; Prior surgery; Surgery date: 6+ months; Surgery type: Lt mast; Additional info: Dyspnea/cough TECHNIQUE: Imaging protocol: Radiologic exam of the chest. Views: 1 view. COMPARISON: CT lung screening [id number] 11/27/2024 7:57 AM FINDINGS: Lungs: Bilateral hilar to lower lobe atelectasis versus infiltrate. Emphysematous changes. Pleural spaces: Unremarkable. No pleural effusion. No pneumothorax. Heart/Mediastinum: Unremarkable. No cardiomegaly. Bones/joints: Unremarkable. XR/XR chest 1V portable [id number] IMPRESSION: 1. Bilateral hilar to lower lobe atelectasis versus infiltrate. 2. Emphysematous changes.
--- OUTSIDE RECORDS SUMMARY | 2025-05-24 21:40 | XMS_ITS | Continuity of Care Document ---
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 Plan of Treatment Reminders Order Date Submit Date Provider Last Modified By Organization Details Last Modified Time Details Appointments OFFICE VISIT 20 2025 10:00A Milton MADSEN PA-C Not available Not available Not available Lab CMP, serum or plasma 2024 026 [facility], [address], [address], [place], [address], 05/21/2025 13:11:21 lipid panel, blood 2024 026 [facility], [address], [address], [place], [address], 05/21/2025 13:11:21 CBC 2024 026 [email or web address] [facility], [address], [address], [place], [address], 05/21/2025 13:11:21 thyrotrop in, QN, serum or plasma 20242 026 [email or web address] [facility], [address], [address], [place], [address], 05/21/2025 13:11:21 Referral None recorded. Procedures None recorded. Surgeries None recorded. Imaging None recorded. Medication Orders atorvasta tin 10 mg tablet 2024 025 [facility] [address], [place], [address], 05/21/2025 13:06:01 Patient TargetsNo targets recorded. Patient InstructionsNo instructions recorded. Reason for Referral None Reported. 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 d/t chemo; 05/10/20 6:46AM by Gabby Carnes LPN, Office Visit; Promoted ; acuity set as *; GABBY vasquez [facility] 5 18:03:57 Atrial fibrilla tion 33903408 Active 2021 Atrial Fibrilla tion; onset 2004. has been on coumadin since; 05/10/20 6:46AM by Gabby Carnes LPN, Office Visit; Promoted ; acuity set as *; ATRIAL FIBRILLA TION; Recorded 05/10/20 11:14AM by Iram Madsen PA-C, Charlee on/Adden dum; Promoted ; acuity set as *; AFIB; Impressi on: Checks PT at home - last reading 2.5. Keep follow up appt.; Recorded 05/10/20 11:14AM by Iram Madsen PA-C, Charlee on/Adden dum; Promoted ; acuity set as *; GABBY vasquez [facility] 5 18:02:52 Hypothyr oidism 72366325 Active 2021 Hypothyr oidism; 05/10/20 6:46AM by Gabby Carnes LPN, Office Visit; Promoted ; acuity set as *; HYPOTHY ROIDISM; Recorded 05/10/20 11:14AM by Iram Madsen PA-C, Annotati on/Adden dum; Promoted ; acuity set as *; HYPOTHY ROID; Recorded 05/10/20 11:14AM by Iram Madsen PA-C, Annotati on/Adden dum; Promoted ; acuity set as *; GABBY vasquez [facility] 5 18:03:49 Sleep apnea 32590925 Active 2021 Sleep Apnea; CPAP; 05/10/20 6:46AM by Gabby Carnes LPN, Office Visit; Promoted ; acuity set as *; GABBY vasquez [facility] 5 18:04:00 Obesity 622912880 Active 2021 OBESITY (BMI 30-39.9) ; Recorded 05/10/20 6:47AM by Gabby Carnes LPN, Office Visit; Promoted ; acuity set as *; GABBY vasquez [facility] 5 18:03:54 Benign essentia l hyperten vani 0883416 Active 2021 Hyperten vani; 05/10/20 6:46AM by Gabby Carnes LPN, Office Visit; Promoted ; acuity set as *; GABBY vasquez [facility], Michael.LY[facility]eth 5 18:03:02 History of malignan t neoplasm of breast 246288782 Completed 202412/03/2024 GABBY vasquez [facility] 5 13:56:38 Mixed hyperlip idemia 267051771 Active 2024 [facility] 5 13:57:38 Pulmonar y hyperten vani 55610098 Active 2024 per echo in 12/2024 [facility] LS[facility]rina[facility] 5 08:37:59 Problem Notes None recorded. Procedures Surgical History Date Name Laterality Status Provider Name and Address Organization Details Recorded Time 5 mammography completed [facility] 01/14/2025 17:58:09 5 bone density scan completed [facility] 12/01/2024 15:18:[address] of lungs completed [facility] 12/01/2024 15:18:50 2 colonoscopy completed [facility] 11/14/2023 12:10:46 Imaging Results None recorded. Procedure Notes None recorded. Medical Equipment None Reported. Allergies Allergen ID Allergen Name Allergen Category Reaction Reaction Severity Criticality Documentation Date Start Date Code Code System Note Provider Name and Address Organization Details Recorded Time 2441 tetanus and diphtheri a toxoids Not available Not available Not available Not available 10/30/2022 JACEY MORIN [facility] 3 15:41:04 2442 Product containin g 3-hydroxy -3-methyl glutaryl- coenzyme A reductase inhibitor (product) medicatio n Not available Not available Not available 10/30/2022 25557 009 SNOMED JCAEY MORIN [facility] 3 15:41:11 59211 Tetanus toxoid adsorbed medicatio n swelling Not available Not available 01/26/2023 37183 RxNorm React ion: arm redne ss and swell ing at site; Gail nt: Recor ded 05/10 6:46A M by King jennings, DOUGH CUTTER, Offic e Visit ; Ray rahman; Martell chilel ce: *; Reaso n: Drug aller gy; ; Not Available [facility] 3 02:24:04 85785 prednison e medicatio n vomiting Not available low 04/17/2023 8640 [facility] 4 16:10:26 66706 simvastat in medicatio n other Not available Not available 05/21/20252018 30946 RxNorm Cause d muscl e pain Not Available [employer] - prod 5 04:23:37 96112 Tetanus toxoid adsorbed Not available itching other swelling Not available Not available Not available Not available 05/21/20252016 76602 RxNorm Arm warm to touch Not Available [employer] [facility] [employer] 5 04:23:37 Medications Name Sig Start Date Stop Date Status Note LastModified by Organization Details LastModified Time Augmentin 875 mg-125 mg tablet Take 1 tablet every 12 hours by oral route for 7 days. 05/16 completed Not Available Not Available Not Available prednison e 10 mg tablet Take 1 tablet every day by oral route for 7 days. 09/28 completed Not Available Not Available Not Available doxycycli ne hyclate 100 mg capsule TAKE 1 TABLET BY MOUTH TWICE DAILY 10/30 completed Not Available Not Available Not Available atorvasta tin 10 mg tablet Take 1 tablet every day by oral route. 2024 active Not Available Not Available Not Avai lable lisinopri l 20 mg tablet active Not Available Not Available Not Available prednison e 20 mg tablet TAKE 2 TABLETS BY MOUTH DAILY 10/30 completed Not Available Not Available Not Available amlodipin e 5 mg tablet active Not Available Not Available Not Available warfarin 3 mg tablet daily active Not Available Not Available Not Available amoxicill in 875 mg tablet TAKE 1 TABLET BY MOUTH EVERY 12 HOURS FOR 7 DAYS 11/13 completed Not Available Not Available Not Available warfarin 6 mg tablet daily 05/16 completed 73492; Recorded 05/10/20 6:46AM by Gabby Carnes LPN (Authori abe through Iram Madsen PA-C), Office Visit; Mail Order Quantity : 60 Tablet; Mail Order Days: 90 Days; Refill Quantity : 60; Tablet; Not Available Not Available Not Available famotidin e 20 mg tablet as needed 02/21 completed 0; Recorded 05/10/20 6:46AM by Gabby Carnes LPN, Office Visit; Not Available Not Available Not Available prednisol one acetate 1 % eye drops,kalin pension INSTILL 1 DROP INTO RIGHT EYE 4 TIMES DAILY 11/17 completed Not Available Not Available Not Available propafeno ne 225 mg tablet active Not Available Not Available Not Available levothyro xine 50 mcg tablet TAKE 1 TABLET EVERY DAY 2024 active Not Available Not Available Not Avai lable lisinopri l 10 mg tablet daily 10/30 completed Not Available Not Available Not Available gabapenti n 100 mg capsule TAKE 2 CAPSULES AT BEDTIME 2024 active Not Available Not Available Not Avai lable metoprolo l succinate ER 25 mg tablet,ex tended release 24 hr TAKE 1 TABLET EVERY DAY 2024 active Not Available Not Available Not Avai lable warfarin 1 mg tablet active Not Available Not Available Not Available neomycin 3.5 mg/g-poly myxin B 10,000 unit/g-de xameth 0.1 % eye oint APPLY SMALL AMOUNT (1/4 INCH) ON EYELID THREE TIMES DAILY. START ON DAY OF PROCEDUR E AND CONTINUE FOR 2 WEEKS active Not Available Not Available No t Available atorvasta tin daily 02/21 completed vo KM/; 66309; Recorded 05/10/20 22 6:46AM by Gabby Carnes LPN (Authori abe through Iram Madsen PA-C), Office Visit; Mail Order Quantity : 90 Tablet; Mail Order Days: 90 Days; Refill Quantity : 90; Tablet; Not Available Not Available Not Available metoprolo l succinate daily 02/21 completed 89349; Recorded 05/10/20 22 6:46AM by Gabby Carnes LPN (Authorskyler fish through Iram Madsen PA-C), Office Visit; Mail Order Quantity : 90 Tablet; Mail Order Days: 90 Days; Refill Quantity : 90; Tablet; Not Available Not Available Not Available propafeno ne three times daily 02/21 completed Recorded 05/10/20 22 6:46AM by Gabby Carnes LPN, Office Visit; Mail Order Quantity : 270 Tablet; Mail Order Days: 90 Days; Refill Quantity : 270; Tablet; Not Available Not Available Not Available gabapenti n at bedtime 02/21 completed 92646; Recorded 05/10/20 22 6:46AM by Gabby Carnes LPN (Authori abe through Iram Madsen PA-C), Office Visit; Mail Order Quantity : 180 Capsule; Mail Order Days: 90 Days; Refill Quantity : 180; Capsule; Not Available Not Available Not Available [facility] Levothyro xine Sodium daily 02/21 completed 15531; Recorded 05/10/20 22 6:46AM by Gabby Carnes LPN (Authori abe through Iram Madsen PA-C), Office Visit; Mail Order Quantity : 90 Tablet; Mail Order Days: 90 Days; Refill Quantity : 90; Tablet; Not Available Not Available Not Available Horizon Nasal Cpap System 11/17 completed 0; Recorded 05/10/20 22 6:46AM by Gabby Carnes LPN, Office Visit; Not Available Not Available Not Available ProAir HFA 90 mcg/actua tion aerosol inhaler four times daily, as needed 05/19 completed Not Available Not Available Not Available hydrochlo rothiazid e 12.5 mg tablet TAKE 1 TABLET EVERY DAY 2024 active Not Available Not Available Not Avai lable Breztri Aerospher e 160 mcg-9mcg- 4.8mcg/ac tuation HFA aerosol inhaler Inhale 2 puffs twice a day by inhalati on route for 90 days. 2024 active Not Available Not Available Not Avai lable Vitals Date Recorded Body height Body mass index (BMI) Body weight Oxygen saturation Heart rate Respiratory rate Body temperature Systolic And Diastolic Provider Name and Address Organization Details Last Updated DateTime 5 165.1 cm 37.3 kg/m2 849506. 69 g 97 % 66 /min 18 /min 97.9 [degF] 138/80 mm[Hg] GABBY CARNES [facility] 5 12:23:05 Social History Question Answer Notes LastModified by Organizat ion Details LastModified Time Tobacco Smoking Status Current Every Day Smoker IRAM MADSEN PA-C [address] [place] [address], [id number], [facility] 02/21/2023 14:39:45 What Was The Date Of Your Most Recent Tobacco Screening? 11/17/2024 [email or web address] Information not available 11/17/2024 What Is Your Current Pack Years? 30ormorepack years Information not available 02/21/2023 At What Age Did You Start Smoking Tobacco? 14 [email or web address] Information not available 02/21/2023 How Much Tobacco Do You Smoke? 0.5 PPD [email or web address] Information not available 02/21/2023 Has Tobacco Cessation Counseling Been Provided? Yes [email or web address] Information not available 11/17/2024 On What Date Was Tobacco Cessation Counseling Provided? 11/17/2024 [email or web address] Information not available 11/17/2024 How Many Years Have You Smoked Tobacco? 50 [email or web address] Information not available 02/21/2023 Sex: Unknown Functional Status Question Answer Note LastModified by Organization D etails LastModified Time Do you or have you ever used any other forms of tobacco or nicotine? No Information not available 02/21/2023 What is your level of alcohol consumption? None Information not available 11/17/2024 Mental Status None recorded. Family History Nothing Reported. Medical History No medical history recorded. Gynecological HistoryNo gynecological history recorded. Obstetrics History GPAL:G 0 P 0 0 0 0 Immunizations Vaccine Type Date Status Note Provider Nam e and Address Organization Details Recorded Time Influenza, adjuvanted, trivalent, PF 5 completed GABBY vasquez, [facility] 05/21/2025 13:13:05 Influenza, high-dose, quadrivalent, PF 2 completed ROSEMARY vasquez, [facility] 04/17/2023 12:53:35 Influenza, high-dose, quadrivalent, PF 1 completed ROSEMARY vasquez, [facility] 04/17/2023 12:53:36 Influenza, adjuvanted, quadrivalent, PF 3 completed IRAM MADSEN PA-C [address] [place] [address], [phone], [facility] 05/16/2023 12:08:44 Influenza, adjuvanted, trivalent, PF 4 completed Not Available [facility] 05/21/2025 12:11:28 Pneumococcal conjugate PCV20, polysaccharide QUO934 conjugate, adjuvant, PF 4 completed GABBY vasquez, [facility] 05/19/2024 12:45:11 Influenza, split virus, trivalent, preservative 0 completed Not Available [facility] 01/26/2023 02:32:34 Past Encounters Encounter ID Performer Location Encounter Start Date Encounter Closed Date Diagnosis/Indication Diagnosis SNOMED-CT Code Diagnosis ICD10 Code Diagnosis IMO Codes Diagnosis Note [id number] IRAM MADSEN PA-C [facility] ([facility]) [address] [place] [address] 05/21/2025 12:08:44 05/21/2025 13:13:25 Benign essential hypertension 5264741 I10 CCA form filled out during today's office visit Atrial fibrillation 4943 6004 I48.91 in control. sees [facility] cardiology . Moderate c hronic obstructive pulmonary disease 979210869 J44.9 834858 doing well on the [employer]. gets thru pt assistance program Mixed hyperlipidemia 267 365406 E78.2 Requires i nfluenza virus vaccination 675964107 Z23 558005 Health Concerns Section Related Observation LastModified by Organization Detai ls LastModified Time None Recorded Concern Status LastModified by Organization Details LastModified Time None Recorded Payers Encounter Date Sequence Insurance Name Policy Number Policy Crowder Covered Member ID Crowder Member ID Guarantor Name 05/21/2025 1 [employer] (MEDICARE REPLACEMENT/A DVANTAGE - PPO) Anya Navarro [id number] Anyayordan Navarro Notes Date Note Type Note Provider Name and Address Organization Details Recorded Time 5 text/html HypertensionReported by PatientHPIFor quality, patient reportspressure. For context, patient reportsexertionandpositio nal. For aggravating factors, patient reportsactivity. For severity, patient reportsgrade 1 (130-139/80-89). For duration, patient reportshas noted for years. For onset/timing, patient reportsgradual onset. For alleviating factors, patient reportsmedication. For self care, patient reportsblood pressure goal: 120/70. For associated symptoms, patient reportsno shortness of breath,no fatigue,no palpitations,no decrease in exercise tolerance, andno snoring. Care Management - Atrial FibrillationReported by PatientCare ManagementFor lifestyle compliance, patient reportssmoker 1ppdbut reportscompliant with no drug/alcohol abuse yes. For prognosis, patient reportsexpected outcome: improveandprognosis: good. For duration, patient reportsgreater than 12 months (chronic). For medications, patient reportscompliant with medication,rate control with beta coleman,rhythm control with other,anticoagulation for stroke prevention coumadin, andmost recent inr: 2.5. For prior imaging, patient reportsechocardiogram. For follow up, patient reportsappointment scheduled with data architect manager yes.Interim HistoryFor associated symptoms, patient reportsno dizziness,no chest pain,no easy bruisability, andno rapid heart rate. COPDReported by PatientHPI:For aggravating factors, patient reportsworse with cigarette smokingandworse with exertion. For associated symptoms, patient reportsarouses from sleep,dyspnea,decrease in exercise capacity,fatigue, andobesity. For onset/timing, patient reportsmultiple times per day. For duration, patient reportschronic,has noted for years, andconstant. For severity, patient reportsmoderate. For context, patient reportscigarette smoking. For alleviating factors, patient reportsrelieved with bronchodilator. I need my ax&me paperwork redone and faxed for my Brezetri . IRAM MADSEN PA-C [address] [place], [address], [facility], [place] 05/21/2025 13:12:00 OBGyn Episode No OBEpisode recorded.
--- OUTSIDE RECORDS SUMMARY | 2025-05-24 21:40 | XMS_ITS | Data Portability ---
Author Organization [facility] Address [address] [address] Care Team Providers Care Roller Inspector Name Role Phone IRAM BAJWA Primary Care Provider Unavailabl e Assessment No assessment recorded. Plan of Treatment Reminders Order Date Submit Date Provider Last Modified By Organization Details Last Modified Time Details Appointments OFFICE VISIT 20 2025 10:00A Milton BAJWA PA-C Not available Not available Not available Lab CMP, serum or plasma 2024 025 [facility], [address], [place], [address], 11/17/2024 13:56:59 lipid panel, blood 2024 025 [facility], [address], [address], [place], [address], 11/17/2024 13:57:02 CBC 2024 025 [facility], [address], [place], [address], 11/17/2024 13:40:14 TSH, serum or plasma [email or web address] [place], [place] [address]ek Lab, [address], [address], [place], [address], 11/24/2024 07:33:29 CMP, serum or plasma 2023 024 [facility], [address] [facility], [address], [address], 11/14/2023 13:49:52 lipid panel, blood 2023 024 [facility], [address] [facility], [address], [address], 11/14/2023 13:49:54 CBC 2023 024 [facility], [address] [facility], [address], [address], 11/14/2023 13:05:10 TSH, serum or plasma 2023 024 [facility] ([facility] [address] [place], [address], 11/14/2023 13:59:14 Referral None recorded. Procedures None recorded. Surgeries None recorded. Imaging LDCT, chest, for lung cancer screening [address] Imaging Orders, [address] [place], [address], 11/20/2024 12:25:40 [facility] [address] [place], [address], 12/01/2024 08:14:01 LDCT, chest, for lung cancer screening [address] Imaging Orders, [address] [place], [address], 11/19/2023 09:57:50 Medication Orders atorvasta tin 10 mg tablet 2024 025 [facility], [address], [place], [address], 05/21/2025 13:06:01 prednison e 10 mg tablet 2023 025 [facility], [address], [place], [address], 09/28/2024 18:47:27 Breztri Aerospher e 160 mcg-9mcg- 4.8mcg/ac tuation HFA aerosol inhaler 2023 024 [facility], [address], [place], [address], 11/14/2023 12:34:10 Patient TargetsNo targets recorded. Patient Instructions Encounter Date Encounter Id Patient Instructions Last Modified By Organization Details Last Modified Time 06/29/2024 [id number] Increase fluids and follow up for worsening [email or web address] Not available 06/30/2024 14:52:11 11/17/2024 [id number] smoking cessatio n counseling, greater than 3 minutes up to 10 minutes* [email or web address] Not available 11/24/2024 07:33:23 Reason for Referral None Reported. Results Created Date Observation Date Name Description Value Unit Range Abnormal Flag Note LastModifiedBy Organization Detail LastModifiedTime 11/14/19 24 11/14/2023 CBC WBC 9.6 x10 4.0-10 .5 Not Available [facility] [address], [place], [address], 11/14/2023 13:05:10 11/14/19 24 11/14/2023 CBC RBC 4.42 x10 3.50-5 .50 Not Available [facility] [address], [place], [address], 11/14/2023 13:05:10 11/14/19 24 11/14/2023 CBC HGB 14.6 g/dL 12.0-1 6.0 Not Available [facility] [address] [facility], [place], [address], 11/14/2023 13:05:10 11/14/19 24 11/14/2023 CBC HCT 42.4 % 37.0-4 7.0 Not Available [facility] [address] [facility] [address] [facility], [place], [address], 11/14/2023 13:05:10 11/14/19 24 11/14/2023 CBC MCV 95.9 fL 80.0-9 9.9 Not Available [facility] [address] [facility], [place], [address], 11/14/2023 13:05:10 11/14/19 24 11/14/2023 CBC MCH 33.1 pg 27.0-3 2.0 high Not Available [facility] [address] [facility], [place], [address], 11/14/2023 13:05:10 11/14/19 24 11/14/2023 CBC MCHC 34.5 g/dL 32.0-3 6.0 Not Available [facility] [address] [facility], [place], [address], 11/14/2023 13:05:10 11/14/19 24 11/14/2023 CBC RDW 14.0 % 11.5-1 4.5 Not Available [facility] [address] [facility], [place], [address], 11/14/2023 13:05:10 11/14/19 24 11/14/2023 CBC plt 279.7 x10 140.0- 451.0 Not Available [facility] [address] [facility], [place], [address], 11/14/2023 13:05:10 11/14/19 24 11/14/2023 CBC lymphocytes % 20.3 % 20.0-5 0.0 Not Available [facility] [address] [facility], [place], [address], 11/14/2023 13:05:10 11/14/19 24 11/14/2023 CBC granulcytes % 72.2 % 30.0-7 0.0 high Not Available [facility] [address] [facility], [place], [address], 11/14/2023 13:05:10 11/14/19 24 11/14/2023 CBC monocytes % 6.0 % 2.0-10 .0 Not Available [facility] [address] [facility], [place], [address], 11/14/2023 13:05:10 11/14/19 24 11/14/2023 CBC granulcytes# 6.9 x10 Not Felicity ilable [facility] [address] [address], [place], [address], 11/14/2023 13:05:10 11/14/19 24 11/14/2023 CBC lymphocytes # 2.0 x10 Not Available [facility] [address] [facility] 1, [place], [address], 11/14/2023 13:05:10 11/14/19 24 11/14/2023 CBC monocytes # 0.6 x10 Not Avai lable [facility] [address] [address], [place], [address], 11/14/2023 13:05:10 11/14/19 24 11/14/2023 CMP (FEMA LE) glucose 101.0 mg/dL 60.0-9 9.0 high Not Available [facility] [address] [address], [place], [address], 11/14/2023 13:49:52 11/14/19 11/14/2023 CMP (FEMA LE) BUN (blood urea nitrogen) 17.0 mg/dL 10.0-2 6.0 Not Available [facility] [address] [facility], [place], [address], 11/14/2023 13:49:52 11/14/19 24 11/14/2023 CMP (FEMA LE) creatinine (serum) 0.8 mg/dL 0.4-1. 5 Not Available [facility] [address] [facility] 1, [place], [address], 11/14/2023 13:49:52 11/14/19 24 11/14/2023 CMP (FEMA LE) BUN/creatini ne ratio 20.99 ratio Not Available [facility] [address] [facility] 1, [place], [address], 11/14/2023 13:49:52 11/14/19 24 11/14/2023 CMP (FEMA LE) eGFR calculated 73.7 Not Available [facility] [address] [facility] 1, [place], [address], 11/14/2023 13:49:52 11/14/19 24 11/14/2023 CMP (FEMA LE) total protein 7.2 g/dL 6.0-8. 5 Not Available [facility] [address] [address], [place], [address], 11/14/2023 13:49:52 11/14/19 24 11/14/2023 CMP (FEMA LE) total bilirubin 0.6 mg/dL 0.2-1. 3 Not Available [facility] [address] [address], [place], [address], 11/14/2023 13:49:52 11/14/19 24 11/14/2023 CMP (FEMA LE) albumin 4.2 g/dL 3.5-5. 5 Not Available [facility] [address] [facility], [place], [address], 11/14/2023 13:49:52 11/14/19 24 11/14/2023 CMP (FEMA LE) globulin 3.0 calc Not Available [facility] [address] [facility], [place], [address], 11/14/2023 13:49:52 11/14/19 24 11/14/2023 CMP (FEMA LE) AST (SGOT) 28.0 U/L 0.0-46 .0 Not Available [facility] [address] [facility], [place], [address], 11/14/2023 13:49:52 11/14/19 24 11/14/2023 CMP (FEMA LE) altv (SGPT) 19.0 U/L 13.0-6 9.0 normal Not Available [facility] [address] [facility], [place], [address], 11/14/2023 13:49:52 11/14/19 24 11/14/2023 CMP (FEMA LE) A/G ratio 1.4 ratio Not Available [facility] [address] [facility] 1, [place], [address], 11/14/2023 13:49:52 11/14/19 24 11/14/2023 CMP (FEMA LE) ALP phos 103.0 U/L 30.0-1 40.0 normal Not Available [facility] [address] [facility], [place], [address], 11/14/2023 13:49:52 11/14/19 24 11/14/2023 CMP (FEMA LE) calcium 9.1 mg/dL 8.4-10 .5 Not Available [facility] [address] [facility], [place], [address], 11/14/2023 13:49:52 11/14/19 24 11/14/2023 CMP (FEMA LE) sodium 142.0 mmol/ L 136.0- 145.0 Not Available [facility] [address] [facility] 1, [place], [address], 11/14/2023 13:49:52 11/14/19 24 11/14/2023 CMP (FEMA LE) potassium 4.1 mmol/ L 3.5-5. 1 Not Available [facility] [address] [facility], [place], [address], 11/14/2023 13:49:52 11/14/19 24 11/14/2023 CMP (FEMA LE) chloride 110.0 mmol/ L 98.0-1 10.0 normal Not Available [facility] [address] [facility], [place], [address], 11/14/2023 13:49:52 11/14/19 24 11/14/2023 CMP (FEMA LE) C02 29.0 mmol/ L 22.0-3 1.0 Not Available [facility] [address] [facility], [place], [address], 11/14/2023 13:49:52 11/14/19 24 11/14/2023 CMP (FEMA LE) anion gap 3.0 calc Not Available [facility] [address] [facility], [place], [address], 11/14/2023 13:49:52 11/14/19 24 11/14/2023 CMP (FEMA LE) osmolality 294.7 calc Not Available [facility] [address] [facility], [place], [address], 11/14/2023 13:49:52 11/14/19 24 11/14/2023 LIPID PROFI LE (FEMA LE) cholesterol 192.0 mg/dL 0.0-20 0.0 Not Available [facility] [address] [address], [place], [address], 11/14/2023 13:49:54 11/14/19 24 11/14/2023 LIPID PROFI LE (FEMA LE) trig 80.0 mg/dL 0.0-15 0.0 Not Available [facility] [address] [address], [place], [address], 11/14/2023 13:49:54 11/14/19 24 11/14/2023 LIPID PROFI LE (FEMA LE) HDL - direct 66.0 mg/dL >40.0 Not Available [facility] [address] [address], [place], [address], 11/14/2023 13:49:54 11/14/19 24 11/14/2023 LIPID PROFI LE (FEMA LE) VLDL - direct 16.0 mg/dL Not Available [facility] [address] [address], [place], [address], 11/14/2023 13:49:54 11/14/19 24 11/14/2023 LIPID PROFI LE (FEMA LE) LDL - direct 110.0 mg/dL 0.0-13 0.0 Not Available [facility] [address], [address], 11/14/2023 13:49:54 11/14/19 24 11/14/2023 TSH, serum or plasm a TSH 2.03 uIU/m L 0.49-3 .82 Not Available [facility] [address] [place], [address], 11/14/2023 12:27:14 11/18/19 25 11/17/2024 CBC WBC 9.7 x10 4.0-10 .5 Not Available [facility] [address] [facility] 1, [place], [address], 11/17/2024 13:40:14 11/18/19 25 11/17/2024 CBC RBC 4.22 x10 3.50-5 .50 Not Available [facility] [address] [facility], [place], [address], 11/17/2024 13:40:14 11/18/19 25 11/17/2024 CBC HGB 13.7 g/dL 12.0-1 6.0 Not Available [facility] [address] [facility], [place], [address], 11/17/2024 13:40:14 11/18/19 25 11/17/2024 CBC HCT 41.9 % 37.0-4 7.0 Not Available [facility] [address] [facility] [facility], [place], [address], 11/17/2024 13:40:14 11/18/19 25 11/17/2024 CBC MCV 99.3 fL 80.0-9 9.9 Not Available [facility] [address] [facility] [facility], [place], [address], 11/17/2024 13:40:14 11/18/19 25 11/17/2024 CBC MCH 32.5 pg 27.0-3 2.0 high Not Available [facility] [address] [facility] [facility], [place], [address], 11/17/2024 13:40:14 11/18/19 25 11/17/2024 CBC MCHC 32.7 g/dL 32.0-3 6.0 Not Available [facility] [address] [facility] [facility] 1, [place], [address], 11/17/2024 13:40:14 11/18/19 11/17/2024 CBC RDW 13.9 % 11.5-1 4.5 Not Available [facility] [address] [facility], [place], [address], 11/17/2024 13:40:14 11/18/19 25 11/17/2024 CBC plt 287.6 x10 140.0- 451.0 Not Available [facility] [address] [facility] 1, [place], [address], 11/17/2024 13:40:14 11/18/19 25 11/17/2024 CBC lymphocytes % 24.5 % 20.0-5 0.0 Not Available [facility] [address] [facility] 1, [place], [address], 11/17/2024 13:40:14 11/18/19 25 11/17/2024 CBC granulcytes % 66.3 % 30.0-7 0.0 Not Available [facility] [address] [facility] 1, [place], [address], 11/17/2024 13:40:14 11/18/19 25 11/17/2024 CBC monocytes % 6.6 % 2.0-16 .0 Not Available [facility] [address] [facility] 1, [place], [address], 11/17/2024 13:40:14 11/18/19 25 11/17/2024 CBC granulcytes# 6.4 x10 Not Felicity ilable [facility] [address] [facility] 1, [place], [address], 11/17/2024 13:40:14 11/18/19 25 11/17/2024 CBC lymphocytes # 2.4 x10 Not Available [facility] [address] [facility] 1, [place], [address], 11/17/2024 13:40:14 11/18/19 25 11/17/2024 CBC monocytes # 0.6 x10 Not Avai lable [facility] [address] [address], [place], [address], 11/17/2024 13:40:14 11/18/19 25 11/17/2024 CMP (FEMA LE) glucose 97.0 mg/dL 60.0-9 9.0 Not Available [facility] [address] [address], [place], [address], 11/17/2024 13:56:59 11/18/19 25 11/17/2024 CMP (FEMA LE) BUN (blood urea nitrogen) 17.0 mg/dL 10.0-2 6.0 Not Available [facility] [address] [address], [place], [address], 11/17/2024 13:56:59 11/18/19 25 11/17/2024 CMP (FEMA LE) creatinine (serum) 0.8 mg/dL 0.4-1. 5 Not Available [facility] [address] [address], [place], [address], 11/17/2024 13:56:59 11/18/19 25 11/17/2024 CMP (FEMA LE) BUN/creatini ne ratio 21.25 ratio Not Available [address] [address], [place], [address], 11/17/2024 13:56:59 11/18/19 25 11/17/2024 CMP (FEMA LE) eGFR calculated 74.5 Not Available [facility] [address] [address], [place], [address], 11/17/2024 13:56:59 11/18/19 25 11/17/2024 CMP (FEMA LE) total protein 6.9 g/dL 6.0-8. 5 Not Available [facility] [address] [facility] 1, [place], [address], 11/17/2024 13:56:59 11/18/19 25 11/17/2024 CMP (FEMA LE) total bilirubin 0.6 mg/dL 0.2-1. 3 Not Available [facility] [address] [facility] 1, [place], [address], 11/17/2024 13:56:59 11/18/19 25 11/17/2024 CMP (FEMA LE) albumin 3.9 g/dL 3.5-5. 5 Not Available [facility] [address] [facility] 1, [place], [address], 11/17/2024 13:56:59 11/18/19 25 11/17/2024 CMP (FEMA LE) globulin 3.0 calc Not Available [facility] [address] [facility] 1, [place], [address], 11/17/2024 13:56:59 11/18/19 25 11/17/2024 CMP (FEMA LE) AST (SGOT) 24.0 U/L 0.0-46 .0 Not Available [facility] [address] [facility] 1, [place], [address], 11/17/2024 13:56:59 11/18/19 25 11/17/2024 CMP (FEMA LE) altv (SGPT) 21.0 U/L 13.0-6 9.0 normal Not Available [facility] [address] [facility] 1, [place], [address], 11/17/2024 13:56:59 11/18/19 25 11/17/2024 CMP (FEMA LE) A/G ratio 1.3 ratio Not Available [facility] [address] [facility] 1, [place], [address], 11/17/2024 13:56:59 11/18/19 25 11/17/2024 CMP (FEMA LE) ALP phos 73.0 U/L 30.0-1 40.0 normal Not Available [facility] [address] [facility] 1, [place], [address], 11/17/2024 13:56:59 11/18/19 25 11/17/2024 CMP (FEMA LE) calcium 8.8 mg/dL 8.4-10 .5 Not Available [facility] [address] [facility] 1, [place], [address], 11/17/2024 13:56:59 11/18/19 25 11/17/2024 CMP (FEMA LE) sodium 140.0 mmol/ L 136.0- 145.0 Not Available [facility] [address] [facility] 1, [place], [address], 11/17/2024 13:56:59 11/18/19 25 11/17/2024 CMP (FEMA LE) potassium 3.9 mmol/ L 3.5-5. 1 Not Available [facility] [address] [facility] 1, [place], [address], 11/17/2024 13:56:59 11/18/19 25 11/17/2024 CMP (FEMA LE) chloride 106.0 mmol/ L 98.0-1 10.0 normal Not Available [facility] [address] [facility] 1, [place], [address], 11/17/2024 13:56:59 11/18/19 25 11/17/2024 CMP (FEMA LE) C02 30.0 mmol/ L 22.0-3 1.0 Not Available [facility] [address] [facility] 1, [place], [address], 11/17/2024 13:56:59 11/18/19 25 11/17/2024 CMP (FEMA LE) anion gap 4.0 calc Not Available [facility] [address] [address], [place], [address], 11/17/2024 13:56:59 11/18/19 25 11/17/2024 CMP (FEMA LE) osmolality 290.5 calc Not Available [facility] [address] [facility] 1, [place], [address], 11/17/2024 13:56:59 11/18/19 25 11/17/2024 LIPID PROFI LE (FEMA LE) cholesterol 162.0 mg/dL 0.0-20 0.0 Not Available [facility] [address] [address], [place], [address], 11/17/2024 13:57:02 11/18/19 25 11/17/2024 LIPID PROFI LE (FEMA LE) trig 94.0 mg/dL 0.0-15 0.0 Not Available [facility] [address] [address], [place], [address], 11/17/2024 13:57:02 11/18/19 25 11/17/2024 LIPID PROFI LE (FEMA LE) HDL - direct 69.0 mg/dL >40.0 Not Available [facility] [address] [facility] 1, [place], [address], 11/17/2024 13:57:02 11/18/19 25 11/17/2024 LIPID PROFI LE (FEMA LE) VLDL - direct 18.8 mg/dL Not Available [facility] [address] [address], [place], [address], 11/17/2024 13:57:02 11/18/19 25 11/17/2024 LIPID PROFI LE (FEMA LE) LDL - direct 74.2 mg/dL 0.0-13 0.0 Not Available [facility] [address] [facility] 1, [place], [address], 11/17/2024 13:57:02 11/18/19 25 11/17/2024 TSH TSH 2.14 uIU/m L 0.49-3 .82 Not Available [facility] [address] [facility] 1, [place], [address], 11/17/2024 15:12:42 11/26/19 24 11/26/2023 LDCT, chest , for lung cance r scree natividad No observ ation record ed. [address] [place], [address], 11/26/2023 13:47:58 11/27/19 25 11/26/2024 DEXA No observ ation record ed. [address] [place], [address], 12/01/2024 15:19:04 12/01/19 25 11/27/2024 LDCT, chest , for lung cance r scree natividad No observ ation record ed. [address] [place], [address], 12/01/2024 15:19:05 01/13/20 25 12/14/2024 , [facility] ardio gram No observ ation record ed. [address] [place], [address], 01/14/2025 08:40:10 01/15/20 25 01/14/2025 MAMMO , diagn ostic , digit al, bilat eral No observ ation record ed. [address] [place], [address], 01/15/2025 10:31:33 Result Notes None recorded. 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 d/t chemo; 05/10/20 6:46AM by Gabby Carnes LPN, Office Visit; Promoted ; acuity set as *; GABBY vasquez, [facility] 5 18:03:57 Atrial fibrilla tion 46107460 Active 2021 Atrial Fibrilla tion; onset 2004. has been on coumadin since; 05/10/20 6:46AM by Gabby Carnes LPN, Office Visit; Promoted ; acuity set as *; ATRIAL FIBRILLA TION; Recorded 05/10/20 11:14AM by Iram Bajwa PA-C, Charlee on/Adden dum; Promoted ; acuity set as *; AFIB; Impressi on: Checks PT at home - last reading 2.5. Keep follow up appt.; Recorded 05/10/20 11:14AM by Iram Bajwa PA-C, Charlee on/Adden dum; Promoted ; acuity set as *; GABBY vasquez, [facility] 5 18:02:52 Hypothyr oidism 88024188 Active 2021 Hypothyr oidism; 05/10/20 6:46AM by Gabby Carnes LPN, Office Visit; Promoted ; acuity set as *; HYPOTHY ROIDISM; Recorded 05/10/20 11:14AM by Iram Bajwa PA-C, Charlee on/Adden dum; Promoted ; acuity set as *; HYPOTHY ROID; Recorded 05/10/20 11:14AM by Iram Bajwa PA-C, Annotati on/Adden dum; Promoted ; acuity set as *; GABBY vasquez, [facility] 5 18:03:49 Sleep apnea 29692956 Active 2021 Sleep Apnea; CPAP; 05/10/20 6:46AM by Gabby Carnes LPN, Office Visit; Promoted ; acuity set as *; GABBY vasquez, [facility] 5 18:04:00 Obesity 634964415 Active 2021 OBESITY (BMI 30-39.9) ; Recorded 05/10/20 6:47AM by Gabby Carnes LPN, Office Visit; Promoted ; acuity set as *; GABBY vasquez, [facility] 5 18:03:54 Benign essentia l hyperten vani 0003350 Active 2021 Hyperten vani; 05/10/20 6:46AM by Gabby Carnes LPN, Office Visit; Promoted ; acuity set as *; GABBY vasquez, [facility] 5 18:03:02 History of malignan t neoplasm of breast 617844930 Completed 202412/03/2024 GABBY vasquez, [facility] 5 13:56:38 Mixed hyperlip idemia 976074620 Active 2024 GABBY vasquez, [facility] 5 13:57:38 Pulmonar y hyperten vani 75294733 Active 2024 per echo in 12/2024 GABBY vasquez [facility]CSabrina 5 08:37:59 Problem Notes None recorded. Procedures Surgical History Date Name Laterality Status Provider Name and Address Organization Details Recorded Time 5 mammography completed GABBYELSA CARNES [facility] [place] 01/14/2025 17:58:09 5 bone density scan completed [facility] [place] 12/01/2024 15:18:[address] of lungs completed [facility] [place] 12/01/2024 15:18:50 2 colonoscopy completed [facility] [place] 11/14/2023 12:10:46 Imaging Results None recorded. Procedure Notes None recorded. Medical Equipment None Reported. Allergies Allergen ID Allergen Name Allergen Category Reaction Reaction Severity Criticality Documentation Date Start Date Code Code System Note Provider Name and Address Organization Details Recorded Time 2441 tetanus and diphtheri a toxoids Not available Not available Not available Not available 10/30/2022 JACEY HEARTChandan vasquez [facility] [place] 3 15:41:04 2442 Product containin g 3-hydroxy -3-methyl glutaryl- coenzyme A reductase inhibitor (product) medicatio n Not available Not available Not available 10/30/2022 80056 009 SNOMED JACEY MIKELChandan vasquez [facility] [place] 3 15:41:11 52929 Tetanus toxoid adsorbed medicatio n swelling Not available Not available 01/26/2023 94462 RxNorm React ion: arm redne ss and swell ing at site; Comme nt: Recor ded 05/10 6:46A M by King jennings, PROOF TECHNICIAN, Offic e Visit ; Promo josiah; Signi fican ce: *; Reaso n: Drug aller gy; ; Not Available [employer] 3 02:24:04 43104 prednison e medicatio n vomiting Not available low 04/17/2023 8640 RxNorm Ioana Alex vasquez [facility], [facility] 4 16:10:26 44560 simvastat in medicatio n other Not available Not available 05/21/20252018 14733 RxNorm Cause d muscl e pain Not Available lesa - [employer] - prod 5 04:23:37 00547 Tetanus toxoid adsorbed Not available itching other swelling Not available Not available Not available Not available 05/21/20252016 82335 RxNorm Arm warm to touch Not Available [employer] - prod 5 04:23:37 Medications [...] warfarin 6 mg tablet daily 05/16 completed 99854; Recorded 05/10/20 6:46AM by Gabby Carnes LPN (Authori zed through Iram Bajwa PA-C), Office Visit; Mail Order Quantity : 60 Tablet; Mail Order Days: 90 Days; Refill Quantity : 60; Tablet; Not Available Not Available Not Available famotidin e 20 mg tablet as needed 02/21 completed 0; Recorded 05/10/20 22 6:46AM by [...] Available atorvasta tin daily 02/21 completed vo KM/dh; 65940; Recorded 05/10/20 22 6:46AM by Gabby Carnes LPN (Authori abe through Iram Bajwa PA-C), Office Visit; Mail Order Quantity : 90 Tablet; Mail Order Days: 90 Days; Refill Quantity : 90; Tablet; Not Available Not Available Not Available metoprolo l succinate daily 02/21 completed 76829; Recorded 05/10/20 22 6:46AM by Gabby Carnes LPN (Authori abe through Iram Bajwa PA-C), Office Visit; Mail Order Quantity : 90 Tablet; Mail Order Days: 90 Days; Refill Quantity : 90; Tablet; Not Available Not Available Not Available propafeno ne three times daily 02/21 completed Recorded 05/10/20 6:46AM by Gabby Carnes LPN, Office Visit; Mail Order Quantity : 270 Tablet; Mail Order Days: 90 Days; Refill Quantity : 270; Tablet; Not Available Not Available Not Available gabapenti n at bedtime 02/21 completed 02018; Recorded 05/10/20 6:46AM by Gabby Carnes LPN (Authori abe through Iram Bajwa PA-C), Office Visit; Mail Order Quantity : 180 Capsule; Mail Order Days: 90 Days; Refill Quantity : 180; Capsule; Not Available Not Available Not Available [facility] Levothyro xine Sodium daily 02/21 completed 32772; Recorded 05/10/20 6:46AM by Gabby Carnes LPN (Authori abe through Iram Bajwa PA-C), Office Visit; Mail Order Quantity : 90 Tablet; Mail Order Days: 90 Days; Refill Quantity : 90; Tablet; Not Available Not Available Not Available Horizon Nasal Cpap System 11/17 completed 0; Recorded 05/10/20 6:46AM by Gabby Carnes LPN, Office Visit; Not Available Not Available Not Available ProAir HFA 90 mcg/actua tion aerosol inhaler four times daily, as needed 05/19 completed Not Available Not Available Not Available hydrochlo rothiazid e 12.5 mg tablet TAKE 1 TABLET EVERY DAY 2024 active Not Available Not Available Not [place] [facility] e 160 mcg-9mcg- 4.8mcg/ac tuation HFA aerosol inhaler Inhale 2 puffs twice a day by inhalati on route for 90 days. 2024 active Not Available Not Available Not [place] moreira Vitals Date Recorded Body height Body mass index (BMI) Body weight Oxygen saturation Heart rate Respiratory rate Body temperature Systolic And Diastolic Provider Name and Address Organization Details Last Updated DateTime 4 165.1 cm 35.4 kg/m2 57970.1 7 g 97 % 72 /min 18 /min 98 [degF] 138/80 mm[Hg] GABBY ORELLANANER [facility] 4 12:03:28 Date Recorded Body height Body mass index (BMI) Body weight Oxygen saturation Heart rate Respiratory rate Body temperature Systolic And Diastolic Provider Name and Address Organization Details Last Updated DateTime 5 165.1 cm 36.9 kg/m2 821822. 51 g 98 % 54 /min 18 /min 98 [degF] 136/80 mm[Hg] GABBYELSA ARIASÁNGEL [facility] 5 12:16:02 Date Recorded Body height Body mass index (BMI) Body weight Oxygen saturation Heart rate Respiratory rate Body temperature Systolic And Diastolic Provider Name and Address Organization Details Last Updated DateTime 4 165.1 cm 36.9 kg/m2 268490. 51 g 98 % 97 /min 20 /min 97 [degF] 130/80 mm[Hg] GABBY HAEFÁNGEL [facility] 4 11:40:18 Date Recorded Body height Body mass index (BMI) Body weight Oxygen saturation Heart rate Respiratory rate Body temperature Systolic And Diastolic Provider Name and Address Organization Details Last Updated DateTime 5 165.1 cm 37.3 kg/m2 086927. 69 g 97 % 66 /min 18 /min 97.9 [degF] 138/80 mm[Hg] [facility] 5 12:23:05 Date Recorded Body height Body mass index (BMI) Body weight Body temperature Heart rate Oxygen saturation Systolic And Diastolic Provider Name and Address Organization Details Last Updated DateTime 4 165.1 cm 36.6 kg/m2 02741.0 2 g 98.4 [degF] 56 /min 99 % 132/70 mm[Hg] Ioana Johnson [facility] 4 15:29:31 Social History Question Answer Notes LastModified by Organizat ion Details LastModified Time Tobacco Smoking Status Current Every Day Smoker IRAM BAJWA PA-C [address] [place], [address], [facility] 02/21/2023 14:39:45 What Was The Date Of Your Most Recent Tobacco Screening? 11/17/2024 [email or web address] Information not available 11/17/2024 What Is Your Current Pack Years? 30ormorepack years [email or web address] Information not available 02/21/2023 At What Age Did You Start Smoking Tobacco? 14 [email or web address] Information not available 02/21/2023 How Much Tobacco Do You Smoke? 0.5 PPD [email or web address] Information not available 02/21/2023 Has Tobacco Cessation Counseling Been Provided? Yes [email or web address] Information not available 11/17/2024 On What Date Was Tobacco Cessation Counseling Provided? 11/17/2024 [email or web address] Information not available 11/17/2024 How Many Years Have You Smoked Tobacco? 50 [email or web address] Information not available 02/21/2023 Sex: Unknown Functional Status Question Answer Note LastModified by Organization D etails LastModified Time Do you or have you ever used any other forms of tobacco or nicotine? No Information not available 02/21/2023 What is your level of alcohol consumption? None [email or web address] Information not available 11/17/2024 Mental Status None recorded. Family History Nothing Reported. Medical History No medical history recorded. Gynecological HistoryNo gynecological history recorded. Obstetrics History GPAL:G 0 P 0 0 0 0 Immunizations Vaccine Type Date Status Note Provider Nam e and Address Organization Details Recorded Time Influenza, adjuvanted, trivalent, PF 5 completed GABBY vasquez, [facility] 05/21/2025 13:13:05 Influenza, high-dose, quadrivalent, PF 2 completed ROSEMARY vasquez [facility] 04/17/2023 12:53:35 Influenza, high-dose, quadrivalent, PF 1 completed ROSEMARY ELLIS null, [facility] 04/17/2023 12:53:36 Influenza, adjuvanted, quadrivalent, PF 3 completed IRAM BAJWA PA-C [address] [place] [address], [address], [facility], L.LYaneth 05/16/2023 12:08:44 Influenza, adjuvanted, trivalent, PF 4 completed Not Available [facility] 05/21/2025 12:11:28 Pneumococcal conjugate PCV20, polysaccharide LOD128 conjugate, adjuvant, PF 4 completed GABBY vasquez [facility], LSabrinaLSabrinaCSabrina 05/19/2024 12:45:11 Influenza, split virus, trivalent, preservative 0 completed Not Available [facility] 01/26/2023 02:32:34 Past Encounters Encounter ID Performer Location Encounter Start Date Encounter Closed Date Diagnosis/Indication Diagnosis SNOMED-CT Code Diagnosis ICD10 Code Diagnosis IMO Codes Diagnosis Note [id number] Bong Boyd MD [facility] ([facility]) [address] [place] [address] [id number] 10/30/2022 15:23:17 10/30/2022 20:34:04 Acute sinusitis 64717730 J01.90 Likely bacterial sinusitis based on exam and history. discussed supportive care including OTC meds and sinus rinses. we [place] abx. [id number] IRAM BAJWA PA-C [facility] ([facility]) [address] [place] [address] [phone] 11/08/2022 11:21:51 11/08/2022 18:48:26 Nicotine dependence 77439518 F17.200 Essential hypertension 89324227 I10 CCA form filled out during today's office visit Screening mammography 24 009430 Z12.31 Hypothyroidism 00765225 E03.9 Chronic at rial fibrillation 932371545 I48.20 no change in meds Acquired c oagulation disorder 498037770 D68.8 Adult heal th examination 853173343 Z00.00 Chronic ob structive pulmonary disease 32427046 J44.9 Obesity 944575346 E66.01 [id number] SHAHZAD EDWARDS NP [facility] ([facility]) [address] [place] [id number] 01/28/2023 17:34:58 02/06/2023 20:55:29 Infection of tooth 690979168 K04.7 Discussed brushing teeth twice a day and flossing once a day. Use mouthwash twice a day for 30 seconds. Discussed taking antibiotic as prescribed until completed even if symptoms resolve before the bottle is empty. Follow up with dentist within the next week for further evaluation and treatment of dental problem. If you develop swelling under chin, swelling in the neck, difficulty swallowing , voice changes, eye pain, swelling around the eye, or fever - return to the walk-in clinic, PCP, ED or dentist. Utilize OTC Ibuprofen or Tylenol as bottle directs as needed for pain/disco mfort. May apply a warm compress to face for 5 minutes every 1-2 hours while awake for swelling/d iscomfort. Patient verbalized understand ing of plan. Return to clinic if any changes, any worsening, any concerns. [id number] IRAM BAJWA PA-C [facility] ([facility]) [address] [place] [address] [id number] 02/21/2023 13:41:00 02/21/2023 18:40:05 Atrial fibrillation 59696866 I48.91 Acute pancreatitis 59286 6007 K85.80 Radiology result abnormal 396575171 R93.89 Hospital i npatient stay within past 30 days 9557172554 106 Z76.89 [id number] Angeline Scott MD [facility] ([facility]) [address] [place] [address] [id number] 04/17/2023 12:46:50 04/17/2023 13:23:51 Chronic obstructive pulmonary disease 33811582 J44.9 pt states prednisone makes her vomit so she cannot take it. Acute exac erbation of chronic obstructive pulmonary disease 183867825 J44.1 [id number] IRAM BAJWA PA-C [facility] ([facility]) [address] [place] [address] [id number] 5 05/16/2023 11:22:48 05/16/2023 12:23:35 Chronic obstructive pulmonary disease 33871239 J44.9 [id number] MERLINE WONG [facility] ([facility]) [address] [place] [address] [id number] 09/01/2023 15:11:53 09/01/2023 16:00:58 Acute left otitis media 077126315 H66.92 [id number] IRAM BAJWA PA-C [facility] ([facility]) [address] [place] [address] [id number] 5 11/14/2023 11:35:36 11/14/2023 12:39:13 Adult health examination 958703292 Z00.00 Chronic ob structive pulmonary disease 58331959 J44.9 Hypothyroidism 15447094 E03.9 Nicotine dependence 5629 4008 F17.200 Chronic at rial fibrillation 316254357 I48.20 no change in meds Acquired c oagulation factor deficiency 35782719 D68.4 coumadin for afib Essential hypertension 00408968 I10 CCA form filled out during today's office visit [id number] IRAM BAJWA PA-C [facility] ([facility]) [address] [place] [id number] 5 05/19/2024 11:08:45 05/19/2024 12:58:06 Chronic obstructive pulmonary disease 48149752 J44.9 doing well on the Breztri. Chronic at rial fibrillation 902269114 I48.20 no change in meds. see cardiology for INRs Essential hypertension 53627576 I10 stable and compliant. Administra tion of pneumococcal vaccine 18658671 Z23 [id number] ALEXANDRIA HERNANDEZ APRN [facility] ([facility]) [address] [place] [address] [id number] 06/29/2024 15:06:32 06/30/2024 17:31:09 Viral syndrome 427988598 B34.9 [id number] IRAM BAJWA PA-C [facility] ([facility]) [address] [place] [address] [id number] 11/17/2024 11:54:10 11/17/2024 13:54:12 Adult health examination 164291167 Z00.00 Chronic ob structive pulmonary disease 47677142 J44.9 doing well on the Breztri. gets thru pt assistance program Hypothyroidism 32389474 E03.9 Nicotine dependence 5629 4008 F17.200 encouraged to quit smoking Chronic at rial fibrillation 984321995 I48.20 no change in meds Acquired c oagulation factor deficiency 49087015 D68.4 coumadin for afib Essential hypertension 92142665 I10 CCA form filled out during today's office visit Screening mammography 24 601121 Z12.31 0282634967 Obesity ca used by energy imbalance 433429692 E66.01 3044576 Postmenopausal state 764 07530 Z78.0 293594 History of malignant neoplasm of breast 912202024 Z85.3 453506 6586 lumpectomy , chemo and radiation 5 yrs of astrizole. Obstructiv e sleep apnea syndrome 54875543 G47.33 056870 Face to face for CPAP machine and supplies. Pt needs to continue to use for sleep apnea s/s as well as comorbid conditions of HTN, obesity. Please supply with tubing and mask for the year [id number] IRAM BAJWA PA-C [facility] ([facility]) [address] [place] [address] [id number] 05/21/2025 12:08:44 05/21/2025 13:13:25 Benign essential hypertension 0279090 I10 CCA form filled out during today's office visit Atrial fibrillation 4943 6004 I48.91 in control. sees [facility] cardiology . Moderate c hronic obstructive pulmonary disease 797055794 J44.9 093919 doing well on the Breztri. gets thru pt assistance program Mixed hyperlipidemia 267 469240 E78.2 Requires i nfluenza virus vaccination 456407294 Z23 684749 Health Concerns Section Related Observation LastModified by Organization Detai ls LastModified Time None Recorded Concern Status LastModified by Organization Details LastModified Time None Recorded Advance Directives Directive None Recorded Payers Insurance Date Sequence Insurance Name Policy Number Policy Crowder Covered Member ID Crowder Member ID Guarantor Name 05/24/2025 1 [employer] (MEDICARE REPLACEMENT/A DVANTAGE - PPO) Anya Navarro [id number] Anya Navarro Notes Date Note Type Note Provider Name and Address Organization Details Recorded Time 4 text/html Medicare Annual Wellness VisitReported by PatientSocial/Behavioral HistoryFor fracture risk, patient reportshistory of fracturesandprevious musculoskeletal injuries. For diet and nutrition, patient reportshealthy diet,discussed portion control,discussed maintaining calcium balance, anddiscussed diet improvement. For physical activity, patient reportsdiscussed weightbearing activitiesanddiscussed exercise habits.Mental Status:For depression risk, patient reportsnever feels sad, empty, or tearful,no loss of interest in activities,no significant changes in weight,no sleep disturbances or insomnia,no agitation,no loss of energy,no feelings of worthlessness or guilt,no thoughts of suicide,no history of depression, andno history of mood disorders. For orientation, patient reportsno disorientation to dateandno disorientation to place. For concentration and memory, patient reportsno decreased concentrating ability,no memory lapses or loss, anddoes not forget words. For speech/motor difficulties, patient reportsno speech difficulties,no difficulty expressing formulated concepts,no difficulty writing/copying,no slowed reaction time, anddoes not knock things over when trying to pick them up.Functional AbilityFor vision, patient reportsworse both distance and near(wears glasses). For hearing, patient reportsno loss of hearing. For activities of daily living, patient reportsable to bathe with limited or no assistance,able to contol urination and bowels,able to dress with limited or no assistance,able to feed self with limited or no assistance,able to get out of chair or bed with limited or no assistance,able to groom with limited or no assistance, andable to toilet with limited or no assistance. For instrumental activities of daily living, patient reportsable to do house work with limited or no assistance,able to grocery shop with limited or no assistance,able to manage medications with limited or no assistance,able to manage money with limited or no assistance,able to prepare meals with limited or no assistance, andable to use the phone with limited or no assistance. For falls risk assessment, patient reportsno frequent falls while walking,no dizziness/vertigo,fall(s) in the past year 0, andfall(s) since last visit0. For home safety, patient reportsno unsafe roya hazzards,no unsafe stairs,working smoke/co detectors,use of seatbelts,good lighting in the home,reviewed sun protection, andnumber of motor vehicle accidents 0. I NEED A LDCT SCHEDULED IRAM BAJWA PA-C [address] [place] [address], [phone], [facility] 11/14/2023 17:59:15 4 text/html HypertensionReported by PatientHPIFor quality, patient reportspressureandweakness. For associated symptoms, patient reportsfatigue. For severity, patient reportsgrade 1 (130-139/80-89). For duration, patient reportshas noted for years. For onset/timing, patient reportsgradual onset. For alleviating factors, patient reportsrestandmedication. For self care, patient reportsblood pressure goal: 120/70. COPDReported by Patient Atrial FibrillationReported by PatientSees [facility] Cardiology. for her afib. IRAM BAJWA PA-C [address] [place], [address], [facility] 05/19/2024 12:17:12 4 text/html CoughReported by PatientROS as [facility], [facility]zy and runny nose for 2 days ALEXANDRIA HERNANDEZ APRN [address] [place], [address], [facility] 06/30/2024 14:53:34 5 text/html HypertensionReported by PatientHPIFor quality, patient reportspressureandweakness. For context, patient reportsexertion. For associated symptoms, patient reportsfatigue. For severity, patient reportsgrade 1 (130-139/80-89). For duration, patient reportshas noted for years. For onset/timing, patient reportsgradual onset. For alleviating factors, patient reportsmedication. For self care, patient reportsblood pressure goal: 120/70.cardiology is getting a ECHO set up for murmur. Medicare Annual Wellness VisitReported by PatientSocial/Behavioral HistoryFor fracture risk, patient reportshistory of fracturesandprevious musculoskeletal injuries. For diet and nutrition, patient reportshealthy diet,discussed portion control,discussed maintaining calcium balance, anddiscussed diet improvement. For physical activity, patient reportsdiscussed weightbearing activitiesanddiscussed exercise habits.Mental Status:For depression risk, patient reportsnever feels sad, empty, or tearful,no loss of interest in activities,no significant changes in weight,no sleep disturbances or insomnia,no agitation,no loss of energy,no feelings of worthlessness or guilt,no thoughts of suicide,no history of depression, andno history of mood disorders. For orientation, patient reportsno disorientation to dateandno disorientation to place. For concentration and memory, patient reportsno decreased concentrating ability,no memory lapses or loss, anddoes not forget words. For speech/motor difficulties, patient reportsno speech difficulties,no difficulty expressing formulated concepts,no difficulty writing/copying,no slowed reaction time, anddoes not knock things over when trying to pick them up.Functional AbilityFor vision, patient reportsworse both distance and near(wears glasses). For hearing, patient reportsno loss of hearing. For activities of daily living, patient reportsable to bathe with limited or no assistance,able to contol urination and bowels,able to dress with limited or no assistance,able to feed self with limited or no assistance,able to get out of chair or bed with limited or no assistance,able to groom with limited or no assistance, andable to toilet with limited or no assistance. For instrumental activities of daily living, patient reportsable to do house work with limited or no assistance,able to grocery shop with limited or no assistance,able to manage medications with limited or no assistance,able to manage money with limited or no assistance,able to prepare meals with limited or no assistance, andable to use the phone with limited or no assistance. For falls risk assessment, patient reportsno frequent falls while walking,no dizziness/vertigo,fall(s) in the past year 0, andfall(s) since last visit0. For home safety, patient reportsno unsafe roya hazzards,no unsafe stairs,working smoke/co detectors,use of seatbelts,good lighting in the home,reviewed sun protection, andnumber of motor vehicle accidents 0. I was dx with sleep apnea in 2017 and my cpap got recalled they finally sent me another one from the [employer] in [place] but it is all digital and they have gone out of business and I don't know how to use this one I would like to be able to rest and have a different one ,Not sure if I need a new sleep study or not. IRAM BAJWA PA-C [address] [place], [address], [facility] - [facility], Matthieu 11/17/2024 13:08:35 5 text/html HypertensionReported by PatientHPIFor quality, patient reportspressure. For context, patient reportsexertionandpositiona l. For aggravating factors, patient reportsactivity. For severity, [...] For follow up, patient reportsappointment scheduled with [facility] yes.Interim HistoryFor associated symptoms, patient reportsno dizziness,no [...] and faxed for my Brezetri . IRAM BAJWA PA-C [address] [place], [address], [facility] - [facility], Matthieu 05/21/2025 13:12:00 OBGyn Episode No OBEpisode recorded.
[2025-05-24 21:44] LABS: Hematocrit 42.3 % (36-47); Hemoglobin 13.60 g/dL (11.27-16.99); Mean Corpuscular HGB Conc 32.2 g/dL (30-55); Mean Corpuscular Hemoglobin 31.0 pg (27-33); Mean Corpuscular Volume 96.4 fl (85-98); Nucleated Red Blood Cells % 0 %; Platelet Count 198 10^3/cmm (157-399); Red Blood Count 4.39 10^6/uL (3.85-5.65); White Blood Count 8.72 10^3/uL (3.29-11.43)
[2025-05-24 21:47] VITALS: BP 130/76; PULSE 87; O2SAT 93
--- NOTE | 2025-05-24 22:01 | ED_ITS ---
HPI - SOB/Dyspnea 2 General: Chief Complaint: Shortness of Breath/Dyspnea Stated Complaint: sob,dizziness Time Seen by Provider: 05/24/25 21:33 History of Present Illness: HPI Narrative: 74-year-old female presents to the emerg ency room with complaints of shortness of breath and dizziness symptoms began yesterday. She denies productive cough although she has been coughing she has low-grade subjective fever. Family ports that her blood pressure was low at home with oxygen sats in the 89 to 90% range per EMS improved with 2 L by nasal cannula to 98%. Associated symptoms: Reports chest congestion; Deny abdominal pain, chest pain or fever(s) Related Data Home Medications ?Medication ?Instructions ?Recorded ?Confirmed gabapentin 100 mg capsule 200 mg PO .bedtime 01/11/21 05/25/25 levothyroxine 50 mcg capsule 50 mcg PO DAILY 01/11/21 05/25/25 metoprolol succinate 25 mg 25 mg PO DAILY 01/12/21 tablet,extended release 24 hr hydrochlorothiazide 12.5 mg tablet 12.5 mg PO DAILY MA N Edema 10/10/21 05/25/25 acetaminophen 500 mg tablet 500 mg PO Q6H PRN Pain 05/2305/25/25 budesonide 160 mcg-glycopyr 9 2 inh inhalation BID 06/2305/25/25 mcg-formot 4.8 mcg/actuation HFA inhaler (Breztri Aerosphere) atorvastatin 10 mg tablet 10 mg PO DAILY 08/10/2405/02 Previous Rx's ?Medication ?Instructions ?Recorded amlodipine 5 mg tablet See Rx Instructions .Route 0 12/16/24 .COMPLEX #90 tabs lisinopril 20 mg tablet See Rx Instructions .Route 0 02/02/25 .COMPLEX #90 tabs propafenone 225 mg tablet See Rx Instructions .Route 0 02/10/25 .COMPLEX #270 tabs warfarin 1 mg tablet See Rx Instructions .Route 0 03/03/25 .COMPLEX #52 tabs warfarin 3 mg tablet See Rx Instructions .Route 0 03/12/25 .COMPLEX #180 tabs Allergies Allergy/AdvReac Type Severity Reaction Status Date / Time Rzfhvcn-NGS-QeG Reductase Allergy myalgias Verified 01/18/25 14:02 Inhibitor (Xfrqgrh-Vhq-Xzz Reductase Inhibitor) tetanus toxoid, adsorbed Allergy arm Verified 01/18/25 14:02 redness and swelling at sight Review of Systems 2 Const: Denies: fever(s) or chills Card: Denies: chest pain Resp: Reports: dyspnea, non-productive cough, wheezing and chest congestion GI: Denies: abdominal pain : Denies: dysuria, urinary frequency or urinary urgency Musc: Denies: neck pain or back pain Skin/Breast: Denies: rash PFSH ED 2 PFSH: Medical History Atrial fibrillation, unspecified type Anticoagulation with warfarin Long-term (current) use of anticoagulants, INR goal 2.0-3.0 Sleep apnea Hypertension Breast cancer Hypothyroidism Peripheral neuropathy Smoking History of chemotherapy Hx of radiation therapy History of trigger finger Hx of colonic polyps Shortness of breath Palpitations Fatigue Surgical History History of lumpectomy of left breast History of tonsillectomy and adenoidectomy History of surgical removal of ganglion cyst Family History Father Cancer Grandmother Cancer Dementia Mother Thyroid disease Dementia Stroke Parkinson disease Grandfather Dementia Parkinson disease Family/Other Parkinson disease Denies family history of Diabetes CAD (coronary artery disease) Clotting disorder Chronic kidney disease (CKD) Suicide Anesthesia complication Bleeding disorder Lung disease Social History Smoking and tobacco/nicotine status: current every day tobacco/nicotine user (pt states a pack a day) Alcohol intake: never Substance/Drug Use: never Physical Exam 2 Const: GENERAL APPEARANCE: cooperative ORIENTATION/CONSCIOUSNESS: Yes awake, Yes oriented to person, Yes oriented to place and Yes oriented to time HENMT: COMMON NORMALS: normocephalic, atraumatic and hearing grossly normal bilaterally HEAD & SCALP: normocephalic and atraumatic Resp: AUSCULTATION: rhonchi and wheezes Cardio: COMMON NORMALS: regular rate, regular rhythm and No murmurs present (Cardio) RATE: regular rate RHYTHM: regular rhythm GI: COMMON NORMALS: Soft to palpation and No hepatosplenomegaly present A USCULTATION: Yes normoactive bowel sounds PALPATION: Yes Soft to palpation, No Tenderness to palpation present (GI), No Guarding due to palpation present (GI) and Yes No hepatosplenomegaly present Extremity: COMMON NORMALS: normal to inspection, capillary refill normal, no clubbing, cyanosis or edema, no calf tenderness and no pedal edema Neuro: SENSORIUM/ORIENTATION: Yes oriented to person, Yes oriented to place and Yes oriented to time Skin: COMMON NORMALS: no rashes or lesions noted GENERAL SKIN EXAM: no rashes or lesions noted Course 2 Vital Signs: Vital signs: Vital Signs Temperature 98.3 F 05/25/25 03:27 Pulse Rate 65 05/25/25 05:10 Respiratory Rate 18 05/25/25 05:00 Blood Pressure 133/52 05/25/25 04:57 Pulse Oximetry 93 05/25/25 05:00 Oxygen Delivery Me thod Nasal Cannula 05/25/25 05:00 Oxygen Flow Rate 1 05/25/25 05:00 MDM - SOB/Dyspnea Medical Decision Making Medical decision making Social determinants: Patient has family support I reviewed the patient's medical record. I reviewed the patient's current home meds Alternate historians: None Differential diagnosis CHF versus pneumonia Lab Review: Labs reviewed INR 1.95 no leukocytosis. CMP shows a glucose of 117 otherwise negative. BNP elevated at 743 Imaging: Increased vascular congestion the lung bases Assessment of risk: Level of risk: High Hospitalization considerations: Patient is mildly hypoxemic requiring oxygen support. Given Lasix 60 mg in the ER will place in observation discussed with hospitalist Reexamination: Patient stable at this time continue monitoring. Discussed with hospitalist orders written Assessment and plan: New onset hypoxemia, history of atrial fibrillation mild congestive heart failure. Discussed with hospitalist orders written will place on observation for further evaluation oxygen support and diurese as needed Medical Records I reviewed the patient's medical records. Lab Data I reviewed the patient's lab results. 05/24/25 21:02 05/24/25 22:28 Labs/Radiology: Radiology Impressions Chest X-Ray 05/24/25 21:34 IMPRESSION: 1. Bilateral hilar to lower lobe atelectasis versus infiltrate. 2. Emphysematous changes. Laboratory Results WBC 8.72 10^3/uL (3.29-11.43) 05/24/25 21:02 RBC 4.39 10^6/uL (3.85-5.65) 05/24/25 21: Hgb 13.60 g/dL (11.27-16.99) 05/24/25 21: Hct 42.3 % (36-47) 05/24/25 21: MCV 96.4 fl (85-98) 05/24/25 21: MCH 31.0 pg (27-33) 05/24/25 21: MCHC 32.2 g/dL (30-55) 05/24/25 21: RDW 14.2 % (12.1-15.1) 05/24/25 21: Plt Count 198 10^3/cmm (157-399) 05/24/25 21: MPV 9.4 fL (7.4-10.4) 05/24/25 21: Neut % (Auto) 75.3 % 05/24/25: Lymph % (Auto) 18.3 % 05/24/25: Dickinson % (Auto) 5.8 % 05/24/25 21: Eos % (Auto) 0.0 % 05/24/25 21: Baso % (Auto) 0.1 % 05/24/25: Neut # (Auto) 6.56 10^3/uL (1.8-7.7) 05/24/25: Lymph # (Auto) 1.6 10^3/uL (0.8-4.8) 05/24/25: Dickinson # (Auto) 0.5 10^3/uL (0.2-0.9) 05/24/25 21: Eos # (Auto) 0.0 10^3/uL (0.0-0.8) 05/24/25 21: Baso # (Auto) 0.0 10^3/uL (0.0-0.1) 05/24/25: Nucleated RBC % (auto) 0 % 05/24/25: Nucleated RBCs # 0.0 /100WBC 05/24/25: PT 23.50 SECONDS (12.1-14.9) H 05/24/25 22:28 INR 1.95 (0.8-1.2) H 05/24/25 22:28 Sodium 137 mmol/L (136-145) 05/24/25 22: Potassium 4.0 mmol/L (3.5-5.1) 05/24/25 22: Chloride 100 mmol/L (98-107) 05/24/25 22: Carbon Dioxide 25 mmol/L (22-29) 05/24/25 22: Anion Gap 16.0 (5-19) 05/24/25 22: BUN 17 mg/dL (8-23) 05/24/25 22: Creatinine 0.9 mg/dL (0.5-0.9) 05/24/25 22: GFR Calculation Not Reportable 05/24/25 22: Glucose 117 mg/dL (65-115) H 05/24/25 22: Calculated Osmolality 287 mOsm/kg (285-295) 05/24/25 22: Lactic Acid 1.1 mmol/L (0.5-2.2) 05/24/25 22: Calcium 8.5 mg/dL (8.5-10.5) 05/24/25 22: Total Bilirubin 0.3 mg/dL (0.15-1.2) 05/24/25 22: AST 19 U/L (0-32) 05/24/25 22: ALT 12 U/L (0-33) 05/24/25 22: Alkaline Phosphatase 86 U/L (35-105) 05/24/25 22: NT-Pro-B Natriuret Pep 743 pg/mL (0-125) H 05/24/25 22: Total Protein 6.6 g/dL (6.6-8.7) 05/24/25 22: Albumin 3.7 g/dL (3.5-5.2) 05/24/25 22: Globulin 2.9 g/dL (1.3-4.6) 05/24/25 22: Procalcitonin 0.14 ng/mL (0-0.5) 05/24/25 22:28 Influenza A (PCR) Negative (Negative) 05/24/25 21:44 Influenza Type B (PCR) Negative (Negative) 05/24/25 21:44 RSV (PCR) Negative (Negative) 05/24/25 21:44 SARS-CoV-2 (PCR) Negative (Negative) 05/24/25 21:44 All radiology interpretation(s) finalized by discharge EKG Data EKG 1: I personally reviewed and interpreted this EKG as follows: Interpretation: EKG 05/24/2025 12:44 AM sinus rhythm no acute ST changes rate of 83. MA interval 83 QTc 417 no acute. EKG changes noted. EKG compared to 02/08/2023 Discharge Plan Discharge Patient Disposition: Admitted As Inpatient Admit Provider: Nando Jackson Clinical Impression: Acute hypoxemic respiratory failure, History of atrial fibrillation, CHF (congestive heart failure) Condition: Stable Coding Level of Care Code ED Feller Operator for Jose Espitia
--- NOTE | 2025-05-24 22:12 | ECG_ITS ---
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 Measurements Intervals Hiram Rate: 63 P: 76 CA: 168 QRS: 40 QRSD: 84 T: 53 QT: 405 QTc: 417 Interpretive Statements SINUS RHYTHM Compared to ECG 02/08/2023 10:34:33 Sinus bradycardia no longer present Electronically Signed On 05-25-2025 10:11:14 MACHINE BOSS by Aguilar Mcbride M.D. [email or web address]
[2025-05-24 22:20] VITALS: PULSE 67; O2SAT 93
[2025-05-24 22:40] LABS: Respiratory Syncytial Virus Ce NEGATIVE (Negative); SARS-CoV-2 PCR NEGATIVE (Negative)
[2025-05-24 22:59] LABS: Lactic Sepsis W/Reflex 1.1 mmol/L (0.5-2.2)
[2025-05-24 23:10] LABS: NT Pro B Type Natriuretic Pept 743 pg/mL (0-125); Procalcitonin 0.14 ng/mL (0-0.5)
[2025-05-24 23:21] LABS: Alanine Aminotransferase 12 U/L (0-33); Albumin Level 3.7 g/dL (3.5-5.2); Alkaline Phosphatase 86 U/L (35-105); Anion Gap 16.0 (5-19); Aspartate Amino Transferase 19 U/L (0-32); Blood Urea Nitrogen 17 mg/dL (8-23); Calcium 8.5 mg/dL (8.5-10.5); Carbon Dioxide 25 mmol/L (22-29); Chloride 100 mmol/L (98-107); Globulin 2.9 g/dL (1.3-4.6); Glucose 117 mg/dL (65-115); Osmolality Calculated 287 mOsm/kg (285-295); Potassium 4.0 mmol/L (3.5-5.1); Sodium 137 mmol/L (136-145); Total Protein 6.6 g/dL (6.6-8.7)
[2025-05-24] MEDS: cefTRIAXone 1,000 mg SDV 1000 MG IVP (23:28)
[2025-05-24 23:31] VITALS: BP 168/77; PULSE 60; O2SAT 94
[2025-05-25] VITALS (15 sets, daily range): BP systolic 118–159; BP diastolic 52–89; PULSE 58–94; RESP 14–20; TEMP 35.9–37.6; O2SAT 91–96; BMI 35.9
[2025-05-25] MEDS: FUROsemide 10 mg/mL SDV 10mL 60 MG IVP (00:15)
[2025-05-25 00:24] LABS: INR 1.95 (0.8-1.2); Prothrombin Time 23.50 SECONDS (12.1-14.9)
--- NOTE | 2025-05-25 00:50 | P.HP_ITS ---
Providers/Chief Complaint 2 Admitting Physician: Nando Jackson MD Primary Care Provider: Iram Bajwa Chief Complaint: sob,dizziness History of Present Illness Anya Navarro is a 74 year old female with a history of reported MIGUELITO, atrial fibrillation maintained on warfarin, COPD, and hypertension, who presents with complaints of shortness of breath. He states that her shortness of breath began last Saturday(05/21) and was associated with dry cough. She mentions also having nausea and sleeping more than her usual as well as decreased appetite. She denies any fevers, vomiting, diarrhea, or abdominal pain. No new swelling. She does mention also that she had a recent sick contact with a child. She has been compliant with her usual medications. At the insistence of her family members, she was encouraged to go to the ER for further evaluation and management. Medications/Allergies Home Medications ?Medication ?Instructions ?Recorded ?Confirmed ?Last Taken ?Type gabapentin 100 mg capsule 200 mg PO .bedtime 01/11/21 08/10/24 02/07/23 History levothyroxine 50 mcg capsule 50 mcg PO DAILY 01/11/21 08/10/24 02/08/23 History metoprolol succinate 25 mg 25 mg PO DAILY 01/12/2104/2402/08/23 History tablet,extended release 24 hr hydrochlorothiazide 12.5 mg tablet 12.5 mg PO DAILY VT N Edema 10/10/21 08/10/24 Unknown History acetaminophen 500 mg tablet 500 mg PO Q6H PRN Pain 05/2308/10/24 Unknown History budesonide 160 mcg-glycopyr 9 2 inh inhalation BID 06/2308/10/24 Unknown History mcg-formot 4.8 mcg/actuation HFA inhaler (Breztri Aerosphere) atorvastatin 10 mg tablet 10 mg PO DAILY 08/10/24 Unk nown History amlodipine 5 mg tablet See Rx Instructions .Route 0 12/16/24 Unknown Rx .COMPLEX #90 tabs lisinopril 20 mg tablet See Rx Instructions .Route 0 02/02/25 Unknown Rx .COMPLEX #90 tabs propafenone 225 mg tablet See Rx Instructions .Route 0 02/10/25 Unknown Rx .COMPLEX #270 tabs warfarin 1 mg tablet See Rx Instructions .Route 0 03/03/25 Unknown Rx .COMPLEX #52 tabs warfarin 3 mg tablet See Rx Instructions .Route 0 03/12/25 Unknown Rx .COMPLEX #180 tabs Allergies Allergy/AdvReac Type Severity Reaction Status Date / Time Ozutlsi-ICE-TwE Reductase Allergy myalgias Verified 01/18/25 14:02 Inhibitor (Gywxxws-Upv-Ynw Reductase Inhibitor) tetanus toxoid, adsorbed Allergy arm Verified 01/18/25 14:02 redness and swelling at sight PFSH Acute 2 PFSH: Medical History (Updated 05/25/25 @ 01:04 by Nando Jackson MD) Atrial fibrillation, unspecified type Anticoagulation with warfarin Long-term (current) use of anticoagulants, INR goal 2.0-3.0 Sleep apnea Hypertension Breast cancer Hypothyroidism Peripheral neuropathy Smoking History of chemotherapy Hx of radiation therapy History of trigger finger Hx of colonic polyps Shortness of breath Palpitations Fatigue Surgical History History of lumpectomy of left breast History of tonsillectomy and adenoidectomy History of surgical removal of ganglion cyst Family History Father Cancer Grandmother Cancer Dementia Mother Thyroid disease Dementia Stroke Parkinson disease Grandfather Dementia Parkinson disease Family/Other Parkinson disease Denies family history of Diabetes CAD (coronary artery disease) Clotting disorder Chronic kidney disease (CKD) Suicide Anesthesia complication Bleeding disorder Lung disease Social History Smoking and tobacco/nicotine status: current every day tobacco/nicotine user (pt states a pack a day) Alcohol intake: never Substance/Drug Use: never Vitals/I&O/Wt Last Vital Signs Temp 99.5 F 05/24/25 21:31 Pulse 68 05/25/25 00:26 Resp 20 H 05/24/25 21:31 BP 127/89 05/25/25 00:26 Pulse Ox 91 05/25/25 00:26 O2 Del Method Nasal Cannula 05/25/25 00:16 O2 Flow Rate 2 05/25/25 00:16 05/24/25 05/24/25 05/25/25 14:59 22:59 06:59 Intake Total 250 / 250 Balance 250 / 250 Weight last 48 hrs Weight 96.162 kg Physical Exam 2 Narrative: General: In mild distress because of abdominal pain and nausea vomiting, AO times x3 HEENT: PERRLA, pupils bilaterally equal and reactive Chest: Subtle bilateral expiratory wheeze noted, equal good air entry bilaterally CVS: S1-S2 irregularly irregular, no murmurs, no tachycardia, no gallops, no rubs Abdomen: Soft, tender in epigastric area with hyperactive bowel sounds, no organomegaly Neuro: No focal deficits, no facial deformity, AO x3, power 5/5 in all limbs Data 05/24/25 21:02 05/24/25 22:28 Micro: Microbiology 05/24/25 22:33 Blood Culture - Preliminary Blood SPECIMEN COLLECTED 05/24/25 22:28 Blood Culture - Preliminary Blood SPECIMEN COLLECTED A&P Assessment and plan 1. Shortness of breath: - Not entirely clear as to the cause of her shortness of breath - Differential includes AECOPD, new CHF, MIGUELITO/pulmonary hypertension, infectious cause with recent ill contact - ED has provided antibiotics. I will forego further antibiotics in the setting of low procalcitonin. If infectious, may be viral. Noted negative Flu and Covid testing - Furosemide also given in ED for elevated BNP. Can consider ongoing doses tomorrow after tonight's dose. No prior BNP to compare but untreated MIGUELITO could cause elevation. - Will order PRN duonebs and 40mg prednisone x5 days - I/S to the bedside - Check echocardiogram - Check TSH. She reports excessive sleepiness. Though, this can be seen in MIGUELITO. May need to see pulmonary medicine to reestablish CPAP therapy. Continue home synthroid - ?RUL nodule. Should be followed up or radiologist contacted for their opinion - O2 ordered. Lowest reported oxygen saturation of 90% reported to me 2. Chronic obstructive pulmonary disease with acute exacerbation: - Plan as above. Will hold further antibiotics 3. Atrial fibrillation, unspecified type: - Continue beta coleman, propafenone, and warfarin PDMP PDMP Reviewed: Not Reviewed Attestations 2 Medical Necessity Statement*: Patient will require at least one midnight of inpatient hospitalization for further investigation and management of her COPD Coding Level of Care Code Acute Code for [facility] Fwd Diagnoses Shortness of breath R06.02 Chronic obstructive pulmonary disease with acute exacerbation J44.1 COPD type: COPD with acute exacerbation Atrial fibrillation, unspecified type I48.91 Atrial fibrillation type: unspecified
--- NOTE | 2025-05-25 01:48 | USCV_ITS ---
Anya Navarro Age: 74 Gender: F : 1950 Exam Date: 05/25/2025 03:07 Ordering Phys: Nando Jackson MD Technologist: NICOLA Exam Location: [facility] [place] Indication: Shortness of Breath History of COPD, asthma, albuterol dependency, HTN, MIGUELITO BP: 168 / 77 HR: 57 Rhythm: Sinus Technical Quality: Adequate MEASUREMENTS (Male / Female) Normal Values 2D ECHO LV Diastolic Diameter PLAX 4.0 cm 4.2 - 5.9 / 3.9 - 5.3 cm IVS Diastolic Thickness 1.0 cm 0.6 - 1.0 / 0.6 - 0.9 cm IVS Systolic Thickness 1.0 cm LVPW Diastolic Thickness 1.0 cm 0.6 - 1.0 / 0.6 - 0.9 cm LVPW Systolic Thickness 0.9 cm LVOT Diameter 1.8 cm LV Ejection Fraction 2D Teich 65.3 % LV Ejection Fraction MOD 4C 67.6 % LV Ejection Fraction MOD 2C 62.3 % LV Ejection Fraction 2C AL 64.3 % LA Diameter 3.6 cm Aorta at Sinotubular Diameter 2.4 cm IVC Diameter 1.1 cm M-MODE LA Ao Ratio MM 1.3 AV Cusp Separation MM 1.7 cm DOPPLER AV Peak Velocity 195.0 cm/s LVOT Peak Velocity 156.0 cm/s AV Area Cont Eq vti 2.4 cm squared AV Area Cont Eq pk 2.0 cm squared MV Peak Velocity 96.0 cm/s MV Area PHT 3.1 cm squared Mitral E to A Ratio 0.8 TV Peak E Velocity 50.0 cm/s PV Peak Velocity 118.0 cm/s FINDINGS Left Ventricle Normal left ventricular size, systolic function and wall thickness, with no regional wall motion abnormalities and normal systolic function, EF 65%. Right Ventricle Normal right ventricular size and systolic function. Right Atrium Normal right atrial size. Left Atrium Normal left atrial size. IA Septum Normal interatrial septum. Mitral Valve Mildly thickened mitral valve. Trace mitral valve regurgitation. Aortic Valve Thickened aortic valve. No aortic valve stenosis. Tricuspid Valve Structurally normal tricuspid valve. Trace tricuspid valve regurgitation. Normal TVPG 8 mmHg. Pulmonic Valve Pulmonic valve not well visualized. Pericardium No pericardial effusion. Aorta Normal size aortic root and proximal ascending aorta. IVC Normal inferior vena cava. CONCLUSIONS Normal LV size and systolic function. Estimated LVEF normal at 65%. Normal chamber sizes. No significant valvular abnormality noted. Normal right heart and pulmonary pressures. Aguilar Mcbride MD (Electronically Signed) Final Date: 25 May 2025 08:28 S
[2025-05-25 02:47] LABS: Base Excess VBG -0.2 mmol/L (-3.0-3.0); Blood Gas Sample Type Venous; HCO3 VBG 24.3 mmol/L (24-28); PCO2 VBG 38.7 mmHg (41-51); PO2 VBG 35.8 mmHg (25-40); Venous Blood Gas Hematocrit 44.7 % (37-47); pH VBG 7.41 (7.32-7.42)
[2025-05-25 03:25] LABS: Glucose Urine UA Negative (Normal); Nitrate Urine Negative (Negative); Specific Gravity, Urine 1.008 (1.005-1.030)
[2025-05-25 03:30] LABS: Add Urine Microscopic? YES
[2025-05-25 03:48] LABS: UA Slide Review UA Slide Review Perf
[2025-05-25] MEDS: metoprolol succinate ER (24 HR) 25 mg Tablet PO (04:49)
[2025-05-25 05:13] LABS: Coronavirus 229E,HKU1,NL63,OC4 Not Detected (NOT DETECT); Parainfluenza Virus Type 1 Not Detected (NOT DETECT); Parainfluenza Virus Type 2 Detected (NOT DETECT); Parainfluenza Virus Type 3 Not Detected (NOT DETECT); Parainfluenza Virus Type 4 Not Detected (NOT DETECT); SARS-COV-2 Not Detected (NOT DETECT)
--- NOTE | 2025-05-25 07:35 | PC.NURSE ---
Notified Dr. Jackson that patient is positive for parainfluenza 2. No new orders.
[2025-05-25] MEDS: ATORVASTATIN 10 MG TABLET PO (09:09)
--- NOTE | 2025-05-25 10:34 | PC.CHAP ---
Pastoral Care Encounter/Spiritual Assessment Type of Contact [] Declined warp bleaching vat tender visit [] Patient/Family/Request visit [] Outpatient visit [] Follow-up visit [] Physician referral [] Code/Alert [] Routine visit [] Staff referral [] Actively dying [] Patient sleeping [] Family support [] [] Out of room [] Palliative care [] [] Receiving care in room [] Pre-surgical visit [] Trauma [] Long length of stay [] ICU visit [x] Other:Contact precautions. No visit. Relational/Emotional Strength [] Patient feels connected with others/family/visitors/staff [] Distress [] Loneliness/isolation [] Abandonment Spirituality of Patient [] Person of Maddison [] Attends Zoroastrianism of their Maddison [] Believes in Prayer [] Reads Bible or Orthodox materials [] There are Spiritual issues to be addressed Health Outreach Worker Interventions [] Prayer [] Active listening [] Non-anxious presence [] Spiritual/emotional support [] Crisis/trauma care [] Spiritual counseling [] Bereavement support [] Provided bereavement packet [] Provided Bible/devotional materials [] Provided toy/stuffed animal, coloring book to patient or family member [] Provided Communion [] Anointing/[place] [] Salvation [] Completed spiritual assessment [] Other: Impact on Illness or Injury [] Angry [] Fearful [] Anxious [] Often cries [] Exhaustion [] Unable to work [] Unable to attend restoration [] Unable to walk/stand [] Unable to read [] Unable to drive [] Unable to eat/drink [] Unable to sleep [] Unable to be with family [] Patient intubated [] Other: Summary Time spent with patient
--- NOTE | 2025-05-25 13:42 | P.PN_ITS ---
Subjective 2 Subjective: Patient was seen this morning, she is alert oriented x 3, following all commands, reporting wheezing, cough, no chills, no fevers Vitals/I&O/Wt Last Vital Signs Temp 98.3 F 05/25/25 03:27 Pulse 62 05/25/25 11:23 Resp 18 05/25/25 11:23 BP 133/52 05/25/25 04:57 Pulse Ox 94 05/25/25 11:23 O2 Del Method Nasal Cannula 05/25/25 11:23 O2 Flow Rate 1 05/25/25 11:23 05/24/25 05/25/25 05/25/25 22:59 06:59 14:59 Intake Total 250 / 250 Output Total 500 / 500 Balance -250 / -250 Weight last 48 hrs Weight 100.9 kg Weight 100.8 kg Weight 96.162 kg Physical Exam 2 Const: COMMON NORMALS: no acute distress and patient oriented x3 Resp: COMMON NORMALS: normal respiratory effort, No retractions, No use of accessory muscles and clear to auscultation bilaterally AUSCULTATION: clear to auscultation bilaterally Cardio: COMMON NORMALS: regular rate, regular rhythm, S1 normal heart sound present and S2 normal heart sound present RATE: regular rate RHYTHM: r egular rhythm HEART SOUNDS: S1 normal heart sound present and S2 normal heart sound present GI: COMMON NORMALS: Normal to inspection, nondistended, normoactive bowel sounds present and non-tender Extremity: COMMON NORMALS: no pedal edema Neuro: COMMON NORMALS: patient oriented x3 Psych: COMMON NORMALS: mental status grossly normal Data 05/24/25 21:02 05/24/25 22:28 Micro: Microbiology 05/24/25 22:33 Blood Culture - Preliminary Blood SPECIMEN COLLECTED 05/24/25 22:28 Blood Culture - Preliminary Blood SPECIMEN COLLECTED A&P Assessment and plan 1. Shortness of breath: 2. Chronic obstructive pulmonary disease with acute exacerbation: 3. Atrial fibrillation, unspecified type: 4. Acute hypoxemic respiratory failure: 5. Pneumonia: 6. Parainfluenza: 7. COPD exacerbation: Plan: Acute hypoxic respiratory failure - COPD exacerbation - Parainfluenza - Bilateral pneumonia Plan - Rocephin - Azithromycin - Solu-Medrol 40 mg IV every 8 hours - Budesonide - Ipratropium - Full code - Lovenox 40mg for dvt prophylaxis PDMP PDMP Reviewed: Not Reviewed Attestations 2 Medical Necessity Statement*: Patient requires hospitalization, inpatient, greater than 2 midnights for COPD exacerbation, pneumonia, peritoneal dialysis Diagnoses Shortness of breath R06.02 Chronic obstructive pulmonary disease with acute exacerbation J44.1 COPD type: COPD with acute exacerbation Atrial fibrillation, unspecified type I48.91 Atrial fibrillation type: unspecified Acute hypoxemic respiratory failure J96.01 Pneumonia J18.9 Parainfluenza B34.8 COPD exacerbation J44.1
[2025-05-25] MEDS: methylPREDNISolone sod succ 40 mg/mL INJ IVP (16:11)
[2025-05-25] MEDS: alum-mag-hydroxide-sime 30 mL UDC PO (21:08)
[2025-05-25] MEDS: cefTRIAXone 1,000 mg SDV 1000 MG IVP (22:20)
[2025-05-26] VITALS (15 sets, daily range): BP systolic 97–140; BP diastolic 43–66; PULSE 63–94; RESP 15–19; TEMP 36.3–37; O2SAT 91–94; BMI 35.7
[2025-05-26] MEDS: ATORVASTATIN 10 MG TABLET PO (05:17)
[2025-05-26] MEDS: metoprolol succinate ER (24 HR) 25 mg Tablet PO (05:17)
[2025-05-26 06:20] LABS: Hematocrit 39.5 % (36-47); Hemoglobin 12.60 g/dL (11.27-16.99); Mean Corpuscular HGB Conc 31.9 g/dL (30-55); Mean Corpuscular Hemoglobin 30.7 pg (27-33); Mean Corpuscular Volume 96.3 fl (85-98); Nucleated Red Blood Cells % 0 %; Platelet Count 180 10^3/cmm (157-399); Red Blood Count 4.10 10^6/uL (3.85-5.65); White Blood Count 10.52 10^3/uL (3.29-11.43)
[2025-05-26 06:34] LABS: INR 2.31 (0.8-1.2); Prothrombin Time 26.70 SECONDS (12.1-14.9)
[2025-05-26 07:16] LABS: Anion Gap 17.3 (5-19); Blood Urea Nitrogen 18 mg/dL (8-23); Calcium 8.7 mg/dL (8.5-10.5); Carbon Dioxide 22 mmol/L (22-29); Chloride 104 mmol/L (98-107); Glucose 145 mg/dL (65-115); Magnesium 2.4 mg/dL (1.7-2.3); Osmolality Calculated 294 mOsm/kg (285-295); Potassium 3.3 mmol/L (3.5-5.1); Sodium 140 mmol/L (136-145); Thyroid Stimulating Hormone 0.40 uIU/mL (0.27-4.20)
[2025-05-26] MEDS: methylPREDNISolone sod succ 40 mg/mL INJ IVP ×4 (08:15→23:19)
[2025-05-26] MEDS: FUROsemide 10 mg/mL SDV 2mL 20 MG IVP (08:55)
--- NOTE | 2025-05-26 09:06 | PC.CHAP ---
Pastoral Care Encounter/Spiritual Assessment Type of Contact [] Declined director plans visit [] Patient/Family/Request visit [] Outpatient visit [] Follow-up visit [] Physician referral [] Code/Alert [] Routine visit [] Staff referral [] Actively dying [] Patient sleeping [] Family support [] [] Out of room [] Palliative care [] [] Receiving care in room [] Pre-surgical visit [] Trauma [] Long length of stay [] ICU visit [x] Other:Contact precautions. No visit. Relational/Emotional Strength [] Patient feels connected with others/family/visitors/staff [] Distress [] Loneliness/isolation [] Abandonment Spirituality of Patient [] Person of Maddison [] Attends Congregation of their [place] [] Believes in Prayer [] Reads Bible or Sabianism materials [] There are Spiritual issues to be addressed Director Of Casework Services Interventions [] Prayer [] Active listening [] Non-anxious presence [] Spiritual/emotional support [] Crisis/trauma care [] Spiritual counseling [] Bereavement support [] Provided bereavement packet [] Provided Bible/devotional materials [] Provided toy/stuffed animal, coloring book to patient or family member [] Provided Communion [] Anointing/[place] [] Salvation [] Completed spiritual assessment [] Other: Impact on Illness or Injury [] Angry [] Fearful [] Anxious [] Often cries [] Exhaustion [] Unable to work [] Unable to attend sabianism [] Unable to walk/stand [] Unable to read [] Unable to drive [] Unable to eat/drink [] Unable to sleep [] Unable to be with family [] Patient intubated [] Other: Summary Time spent with patient
--- NOTE | 2025-05-26 14:53 | P.PN_ITS ---
Subjective 2 Subjective: Patient was seen this morning, currently alert oriented x 3, following commands, denies any fevers, no chills but does report persistent shortness of breath, persistent wheezing, Vitals/I&O/Wt Last Vital Signs Temp 98.2 F 05/26/25 07:20 Pulse 72 05/26/25 13:00 Resp 18 05/26/25 13:00 BP 115/43 05/26/25 12:00 Pulse Ox 92 05/26/25 13:00 O2 Del Method Nasal Cannula 05/26/25 13:00 O2 Flow Rate 1 05/26/25 13:00 05/25/25 05/26/25 05/26/25 22:59 06:59 14:59 Intake Total 240 / 240 250 / 490 720 / 720 Balance 240 / 240 250 / 490 720 / 720 Weight last 48 hrs Weight 100.5 kg Weight 100.9 kg Weight 100.8 kg Weight 96.162 kg Physical Exam 2 Const: COMMON NORMALS: no acute distress and patient oriented x3 Resp: COMMON NORMALS: normal respiratory effort, No retractions, No use of accessory muscles and clear to auscultation bilaterally AUSCULTATION: clear to auscultation bilaterally Cardio: COMMON NORMALS: regular rate, regular rhythm, S1 normal heart sound present and S2 normal heart sound present RATE: regular rate RHYTHM: r egular rhythm HEART SOUNDS: S1 normal heart sound present and S2 normal heart sound present GI: COMMON NORMALS: Normal to inspection, nondistended, normoactive bowel sounds present and non-tender Extremity: COMMON NORMALS: no pedal edema Neuro: COMMON NORMALS: patient oriented x3 Psych: COMMON NORMALS: mental status grossly normal Data 05/26/25 06:00 05/26/25 06:00 Micro: Microbiology 05/24/25 22:33 Blood Culture - Preliminary Blood NEGATIVE TO DATE 05/24/25 22:28 Blood Culture - Preliminary Blood NEGATIVE TO DATE A&P Assessment and plan 1. Shortness of breath: 2. Chronic obstructive pulmonary disease with acute exacerbation: 3. Atrial fibrillation, unspecified type: 4. Acute hypoxemic respiratory failure: 5. Pneumonia: 6. Parainfluenza: 7. COPD exacerbation: Plan: Acute hypoxic respiratory failure - COPD exacerbation - Parainfluenza - Bilateral pneumonia Plan - Rocephin - Azithromycin - Solu-Medrol 40 mg IV every 8 hours - Jobonide - Ipratropium - Full code - Lovenox 40mg for dvt prophylaxis Plan for today continue IV steroids, low-dose IV Lasix with potassium, IV antibiotics PDMP PDMP Reviewed: Not Reviewed Attestations 2 Medical Necessity Statement*: Patient requires hospitalization for acute hypoxic respiratory failure secondary to COPD, pneumonia Diagnoses Shortness of breath R06.02 Chronic obstructive pulmonary disease with acute exacerbation J44.1 COPD type: COPD with acute exacerbation Atrial fibrillation, unspecified type I48.91 Atrial fibrillation type: unspecified Acute hypoxemic respiratory failure J96.01 Pneumonia J18.9 Parainfluenza B34.8 COPD exacerbation J44.1
[2025-05-26] MEDS: cefTRIAXone 1,000 mg SDV 1000 MG IVP (21:35)
[2025-05-27 03:24] LABS: Hematocrit 37.8 % (36-47); Hemoglobin 12.60 g/dL (11.27-16.99); Mean Corpuscular HGB Conc 33.3 g/dL (30-55); Mean Corpuscular Hemoglobin 31.7 pg (27-33); Mean Corpuscular Volume 95.2 fl (85-98); Nucleated Red Blood Cells % 0 %; Platelet Count 199 10^3/cmm (157-399); Red Blood Count 3.97 10^6/uL (3.85-5.65); White Blood Count 13.33 10^3/uL (3.29-11.43)
[2025-05-27 03:52] LABS: Alanine Aminotransferase 13 U/L (0-33); Albumin Level 3.2 g/dL (3.5-5.2); Alkaline Phosphatase 69 U/L (35-105); Anion Gap 32.7 (5-19); Aspartate Amino Transferase 16 U/L (0-32); Blood Urea Nitrogen 26 mg/dL (8-23); Calcium 8.0 mg/dL (8.5-10.5); Carbon Dioxide 20 mmol/L (22-29); Chloride 99 mmol/L (98-107); Creatinine Clr Calc Pharmacy 65.6058; Globulin 2.5 g/dL (1.3-4.6); Glucose 136 mg/dL (65-115); Osmolality Calculated 313 mOsm/kg (285-295); Potassium 3.7 mmol/L (3.5-5.1); Sodium 148 mmol/L (136-145); Total Protein 5.7 g/dL (6.6-8.7)
[2025-05-27 04:00] VITALS: BP 145/65; PULSE 70; RESP 14; O2SAT 96
[2025-05-27 04:04] VITALS: BMI 36.3
[2025-05-27] MEDS: ATORVASTATIN 10 MG TABLET PO (04:47)
[2025-05-27] MEDS: metoprolol succinate ER (24 HR) 25 mg Tablet PO (04:47)
[2025-05-27 05:45] LABS: INR 2.45 (0.8-1.2); Prothrombin Time 28.00 SECONDS (12.1-14.9)
[2025-05-27 07:32] VITALS: PULSE 71; RESP 16; O2SAT 92
[2025-05-27 07:39] VITALS: PULSE 57; O2SAT 91
[2025-05-27 07:40] VITALS: BP 126/71; PULSE 68; RESP 18; TEMP 36.6; O2SAT 93
[2025-05-27] MEDS: methylPREDNISolone sod succ 40 mg/mL INJ IVP (08:48)
[2025-05-27 09:06] LABS: Anion Gap 15.9 (5-19); Blood Urea Nitrogen 26 mg/dL (8-23); Calcium 9.2 mg/dL (8.5-10.5); Carbon Dioxide 25 mmol/L (22-29); Chloride 105 mmol/L (98-107); Glucose 120 mg/dL (65-115); Osmolality Calculated 300 mOsm/kg (285-295); Potassium 3.9 mmol/L (3.5-5.1); Sodium 142 mmol/L (136-145)
--- NOTE | 2025-05-27 10:38 | P.DS_ITS ---
Discharge Providers Date of Admission: 05/25/25 14:03 Date of Discharge: May 27, 2025 Attending Provider at Admission: Nando Jackson MD Attending Provider at Discharge: Tal Colorado MD Primary Care Provider: Iram Bajwa Diagnoses at Discharge Discharge Diagnosis 1. Shortness of breath: 2. Chronic obstructive pulmonary disease with acute exacerbation: 3. Atrial fibrillation, unspecified type: 4. Acute hypoxemic respiratory failure: 5. Pneumonia: 6. Parainfluenza: 7. COPD exacerbation: Reason for Visit Reason for Visit: sob,dizziness Hospital Course Hospital Course This is a 75-year-old female who presents [facility] for shortness of breath Patient was admitted to [facility] for acute hypoxic respiratory failure secondary to COPD exacerbation, parainfluenza, bilateral pneumonia - Received IV antibiotics - IV steroids - Inpatient inhalers -Inpatient monitoring - Patient overall clinically improved - Discharged on p.o. antibiotics, albuterol, Advair, p.o. steroids Physical Exam Const: COMMON NORMALS: no acute distress and patient oriented x3 Resp: COMMON NORMALS: normal respiratory effort, No retractions, No use of accessory muscles and clear to auscultation bilaterally AUSCULTATION: clear to auscultation bilaterally Cardio: COMMON NORMALS: regular rate, regular rhythm, S1 normal heart sound present and S2 normal heart sound present RATE: regular rate RHYTHM: regular rhythm HEART SOUNDS: S1 normal heart sound present and S2 normal heart sound present GI: COMMON NORMALS: Normal to inspection, nondistended, normoactive bowel sounds present and non-tender Extremity: COMMON NORMALS: no pedal edema Neuro: COMMON NORMALS: patient oriented x3 Psych: COMMON NORMALS: mental status grossly normal Discharge Data Studies Completed and Pending Completed Studies During Hospitalization Category Date Time Status XR chest 1V portable [id number] Stat Exams 05/24/25 21:34 Completed US echo complete [CV. echo complete* [id number]] Routine Ultrasound 05/25/25 01:48 Completed Pending at discharge Category Date Time Status Blood Culture Stat Lab 05/24/25 22:33 Results Complete Blood Count w/Auto AM LABS Lab 05/28/25 04:00 Ordered Complete Blood Count w/Auto AM LABS Lab 05/29/25 04:00 Ordered Comprehensive Metabolic Panel AM LABS Lab 05/28/25 04:00 Ordered Comprehensive Metabolic Panel AM LABS Lab 05/29/25 04:00 Ordered Prothrombin Time INR AM LABS Lab 05/28/25 04:00 Ordered Radiology Impressions Chest X-Ray 05/24/25 21:34 IMPRESSION: 1. Bilateral hilar to lower lobe atelectasis versus infiltrate. 2. Emphysematous changes. Laboratory Results WBC 13.33 10^3/uL (3.29-11.43) H 05/27/25 02:49 RBC 3.97 10^6/uL (3.85-5.65) 05/27/25 02:49 Hgb 12.60 g/dL (11.27-16.99) 05/27/25 02:49 Hct 37.8 % (36-47) 05/27/25 02:49 MCV 95.2 fl (85-98) 05/27/25 02:49 MCH 31.7 pg (27-33) 05/27/25 02:49 MCHC 33.3 g/dL (30-55) 05/27/25 02:49 RDW 14.0 % (12.1-15.1) 05/27/25 02:49 Plt Count 199 10^3/cmm (157-399) 05/27/25 02:49 MPV 9.3 fL (7.4-10.4) 05/27/25 02:49 Neut % (Auto) 88.9 % 05/27/25 02:49 Lymph % (Auto) 6.5 % 05/27/25 02:49 [place] % (Auto) 3.2 % 05/27/25 02:49 Eos % (Auto) 0.0 % 05/27/25 02:49 Baso % (Auto) 0.1 % 05/27/25 02:49 Neut # (Auto) 11.85 10^3/uL (1.8-7.7) H 05/27/25 02:49 Lymph # (Auto) 0.9 10^3/uL (0.8-4.8) 05/27/25 02:49 [place] # (Auto) 0.4 10^3/uL (0.2-0.9) 05/27/25 02:49 Eos # (Auto) 0.0 10^3/uL (0.0-0.8) 05/27/25 02:49 Baso # (Auto) 0.0 10^3/uL (0.0-0.1) 05/27/25 02:49 Nucleated RBC % (auto) 0 % 05/27/25 02:49 Nucleated RBCs # 0.0 /100WBC 05/27/25 02:49 PT 28.00 SECONDS (12.1-14.9) H 05/27/25 05:13 INR 2.45 (0.8-1.2) H 05/27/25 05:13 Specimen Type Venous 05/25/25 02:35 Sample Site n/a 05/25/25 02:35 Raymundo Test N/a 05/25/25 02:35 VBG pH 7.41 (7.32-7.42) 05/25/25 02:35 VBG pCO2 38.7 mmHg (41-51) L 05/25/25 02:35 VBG pO2 35.8 mmHg (25-40) 05/25/25 02:35 VBG HCO3 24.3 mmol/L (24-28) 05/25/25 02:35 VBG Base Excess -0.2 mmol/L (-3.0-3.0) 05/25/25 02:35 VBG Hematocrit 44.7 % (37-47) 05/25/25 02:35 O2 Delivery Device n/a 05/25/25 02:35 Produce Production Team Member ID [email or web address] 05/25/25 02:35 Sodium 142 mmol/L (136-145) 05/27/25 08:32 Potassium 3.9 mmol/L (3.5-5.1) 05/27/25 08:32 Chloride 105 mmol/L (98-107) 05/27/25 08:32 Carbon Dioxide 25 mmol/L (22-29) 05/27/25 08:32 Anion Gap 15.9 (5-19) 05/27/25 08:32 BUN 26 mg/dL (8-23) H 05/27/25 08:32 Creatinine 0.9 mg/dL (0.5-0.9) 05/27/25 08:32 GFR Calculation Not Reportable 05/27/25 08:32 Glucose 120 mg/dL (65-115) H 05/27/25 08:32 Calculated Osmolality 300 mOsm/kg (285-295) H 05/27/25 08:32 Lactic Acid 1.1 mmol/L (0.5-2.2) 05/24/25 22:28 Calcium 9.2 mg/dL (8.5-10.5) 05/27/25 08:32 Magnesium 2.4 mg/dL (1.7-2.3) H 05/26/25 06:00 Total Bilirubin 0.2 mg/dL (0.15-1.2) 05/27/25 02:49 AST 16 U/L (0-32) 05/27/25 02:49 ALT 13 U/L (0-33) 05/27/25 02:49 Alkaline Phosphatase 69 U/L (35-105) 05/27/25 02:49 NT-Pro-B Natriuret Pep 743 pg/mL (0-125) H 05/24/25 22:28 Total Protein 5.7 g/dL (6.6-8.7) L 05/27/25 02:49 Albumin 3.2 g/dL (3.5-5.2) L 05/27/25 02:49 Globulin 2.5 g/dL (1.3-4.6) 05/27/25 02:49 Procalcitonin 0.14 ng/mL (0-0.5) 05/24/25 22:28 TSH 0.40 uIU/mL (0.27-4.20) 05/26/25 06:00 Urine Color Yellow (Yellow) 05/25/25 02:40 Urine Appearance Clear (CLEAR) 05/25/25 02:40 Urine pH 5.0 (5-7) 05/25/25 02:40 Ur Specific Neptune 1.008 (1.005-1.030) 05/25/25 02:40 Urine Protein Negative (Negative) 05/25/25 02:40 Urine Glucose (UA) Negative (Normal) 05/25/25 02:40 Urine Ketones Negative (Negative) 05/25/25 02:40 Urine Blood 1+ (Negative) A 05/25/25 02:40 Urine Nitrate Negative (Negative) 05/25/25 02:40 Urine Bilirubin Negative (Negative) 05/25/25 02:40 Urine Urobilinogen 0.2 mg/dL (Negative) 05/25/25 02:40 Ur Leukocyte Esterase Negative (Negative) 05/25/25 02:40 Urine RBC 0-2 /hpf (0-2) 05/25/25 02:40 Urine WBC 0-5 /hpf (0-5) 05/25/25 02:40 Ur Squamous Epith Cells 0-5 /hpf (0-5) 05/25/25 02:40 Amorphous Sediment Not Reportable 05/25/25 02:40 Urine Bacteria None seen /hpf (NONE) 05/25/25 02:40 Hyaline Casts 11.16 /lpf 05/25/25 02:40 Adenovirus (PCR) Not detected (NOT DETECT) 05/25/25 02:40 C. pneumoniae DNA (PCR) Not detected (NOT DETECT) 05/25/25 02:40 Coronavirus 229E (PCR) Not detected (NOT DETECT) 05/25/25 02:40 Human Metapneumovir PCR Not detected (NOT DETECT) 05/25/25 02:40 Influenza A (H1) PCR Not detected (NOT DETECT) 05/25/25 02:40 Influenza A (PCR) Negative (Negative) 05/24/25 21:44 Influ A (H1/09) PCR Not detected (NOT DETECT) 05/25/25 02:40 Influenza A (H3) PCR Not detected (NOT DETECT) 05/25/25 02:40 Influenza Type A (PCR) Not detected (NOT DETECT) 05/25/25 02:40 Influenza Type B (PCR) Not detected (NOT DETECT) 05/25/25 02:40 M. pneumoniae (PCR) Not detected (NOT DETECT) 05/25/25 02:40 Parainfluenza 1 (PCR) Not detected (NOT DETECT) 05/25/25 02:40 Parainfluenza 2 (PCR) Detected (NOT DETECT) A 05/25/25 02:40 Parainfluenza 3 (PCR) Not detected (NOT DETECT) 05/25/25 02:40 Parainfluenza 4 (PCR) Not detected (NOT DETECT) 05/25/25 02:40 RSV (PCR) Negative (Negative) 05/24/25 21:44 RSV Type A (PCR) Not detected (NOT DETECT) 05/25/25 02:40 RSV Type B (PCR) Not detected (NOT DETECT) 05/25/25 02:40 Entero/Rhino (PCR) Not detected (NOT DETECT) 05/25/25 02:40 SARS-CoV-2 (PCR) Not detected (NOT DETECT) 05/25/25 02:40 Vitals Last Vital Signs Temp 97.9 F 05/27/25 07:40 Pulse 68 05/27/25 07:40 Resp 18 05/27/25 07:40 BP 126/71 05/27/25 07:40 Pulse Ox 93 05/27/25 07:40 O2 Del Method Room Air 05/27/25 07:39 O2 Flow Rate 1 05/26/25 20:37 Discharge Plan Discharge Patient Disposition: Home Condition: Stable Prescriptions: New levofloxacin 750 mg tablet 750 mg PO DAILY 3 Days Qty: 3 0RF albuterol sulfate [Ventolin HFA] 90 mcg/actuation HFA aerosol inhaler 1 inh inhalation Q6H PRN (Reason: shortness of breath or wheezing) Qty: 8.5 0RF fluticasone propion-salmeterol [Advair Diskus] 100-50 mcg/dose blister with device 1 inh inhalation BID 30 Days Qty: 60 0RF prednisone 20 mg tablet 20 mg PO BID 3 Days Qty: 6 0RF Continued levothyroxine 50 mcg capsule 50 mcg PO DAILY gabapentin 100 mg capsule 200 mg PO .bedtime metoprolol succinate 25 mg tablet extended release 24 hr 25 mg PO DAILY hydrochlorothiazide 12.5 mg tablet 12.5 mg PO DAILY PRN (Reason: Edema) Breztri Aerosphere 160-9-4.8 mcg/actuation HFA aerosol inhaler 2 inh inhalation BID atorvastatin 10 mg tablet 10 mg PO DAILY amlodipine 5 mg tablet See Rx Instructions .ROUTE .COMPLEX Qty: 90 3RF Dose Instruction: TAKE 1 TABLET EVERY DAY Rx Instructions: TAKE 1 TABLET EVERY DAY lisinopril 20 mg tablet See Rx Instructions .ROUTE .COMPLEX Qty: 90 3RF Dose Instruction: TAKE 1 TABLET EVERY DAY Rx Instructions: TAKE 1 TABLET EVERY DAY propafenone 225 mg tablet See Rx Instructions .ROUTE .COMPLEX Qty: 270 3RF Dose Instruction: TAKE 1 TABLET EVERY 8 HOURS Rx Instructions: TAKE 1 TABLET EVERY 8 HOURS warfarin 1 mg tablet See Rx Instructions .ROUTE .COMPLEX Qty: 52 3RF Protocol: Dose Management Condition: Saturday Dose/Route: 4 mg Instruction: 1 x 1 mg tablet, 1 x 3 mg tablet Condition: Saturday Dose/Route: 6 mg Instruction: 2 x 3 mg tablets Condition: Saturday Dose/Route: 4 mg Instruction: 1 x 1 mg tablet, 1 x 3 mg tablet Condition: Saturday Dose/Route: 6 mg Instruction: 2 x 3 mg tablets Condition: Dose/Route: 4 mg Instruction: 1 x 1 mg tablet, 1 x 3 mg tablet Condition: Saturday Dose/Route: 6 mg Instruction: 2 x 3 mg tablets Condition: Saturday Dose/Route: 4 mg Instruction: 1 x 1 mg tablet, 1 x 3 mg tablet Protocol Text: Adjustment Start Date: Saturday05/17/25 INR Value: 2.5 INR Date: 05/17/25 Recheck Date: 05/24/25 Dose Instruction: TAKE 1 TABLET DAILY ON , THUR, SAT, AND SUN Rx Instructions: TAKE 1 TABLET DAILY ON , TH, SAT, AND SUN warfarin 3 mg tablet See Rx Instructions .ROUTE .COMPLEX Qty: 180 5RF Protocol: Dose Management Condition: Saturday Dose/Route: 4 mg Instruction: 1 x 1 mg tablet, 1 x 3 mg tablet Condition: Saturday Dose/Route: 6 mg Instruction: 2 x 3 mg tablets Condition: Saturday Dose/Route: 4 mg Instruction: 1 x 1 mg tablet, 1 x 3 mg tablet Condition: Saturday Dose/Route: 6 mg Instruction: 2 x 3 mg tablets Condition: Dose/Route: 4 mg Instruction: 1 x 1 mg tablet, 1 x 3 mg tablet Condition: Saturday Dose/Route: 6 mg Instruction: 2 x 3 mg tablets Condition: Saturday Dose/Route: 4 mg Instruction: 1 x 1 mg tablet, 1 x 3 mg tablet Protocol Text: Adjustment Start Date: Saturday05/17/25 INR Value: 2.5 INR Date: 05/17/25 Recheck Date: 05/24/25 Dose Instruction: TAKE 2 TABLETS (6MG) DAILY DIRECTED AND 1 TABLET (3MG) DIRECTED PER INR RESULTS NEEDED PER SLIDING SCALE Rx Instructions: TAKE 2 TABLETS (6MG) DAILY DIRECTED AND 1 TABLET (3MG) DIRECTED PER INR RESULTS NEEDED PER SLIDING SCALE acetaminophen 500 mg Tablet 500 mg PO Q6H PRN (Reason: Pain) famotidine 20 mg Tablet 20 mg PO BID Referrals: Iram Bajwa PA [Primary Care Provider, [facility]] Patient Instructions: Opioid Safety, Patient Portal & Daryn Instructions Activity Restrictions/Additional Instructions: - Please follow-up with primary care provider - If any worsening shortness of breath go to the emergency room - See your primary care provider on Saturday for recheck INR Discharge Attestations Time Spent in Discharge Care*: greater than 30 min Status at Discharge: Cognitive status at discharge: cognitively intact , Behavioral status at discharge: cooperative , Quality Metrics Clinical Quality Measures [ No reported AMI, CVA or VTE this stay] Coding Level of Care Code 41860 Total time (in minutes) for Discharge: 45 Diagnoses Shortness of breath R06.02 Chronic obstructive pulmonary disease with acute exacerbation J44.1 COPD type: COPD with acute exacerbation Atrial fibrillation, unspecified type I48.91 Atrial fibrillation type: unspecified Acute hypoxemic respiratory failure J96.01 Pneumonia J18.9 Parainfluenza B34.8 COPD exacerbation J44.1
[2025-05-27 11:09] VITALS: PULSE 65; RESP 16; O2SAT 92
== END 2025-05-27 12:30 | disposition home or self-care (01) | DRG 193 ==
LOC: ER 05-25 00:03 → CSU 05-25 00:31
PROVIDERS: Admitting Provider Family Medicine; Emergency Provider Family Medicine; PCP Physician Assistant; Visit Provider Family Medicine
DX: J18.9 Pneumonia, unspecified organism (principal); J96.01 Acute respiratory failure with hypoxia; J44.0 Chronic obstructive pulmonary disease with (acute) lower respiratory infection; J44.1 Chronic obstructive pulmonary disease with (acute) exacerbation; I48.91 Unspecified atrial fibrillation; B97.89 Other viral agents as the cause of diseases classified elsewhere; G47.33 Obstructive sleep apnea (adult) (pediatric); I10 Essential (primary) hypertension; E03.9 Hypothyroidism, unspecified; G62.9 Polyneuropathy, unspecified; F17.210 Nicotine dependence, cigarettes, uncomplicated; Z79.51 Long term (current) use of inhaled steroids; Z79.01 Long term (current) use of anticoagulants; Z85.3 Personal history of malignant neoplasm of breast; Z92.21 Personal history of antineoplastic chemotherapy; Z92.3 Personal history of irradiation
CPT/HCPCS: 36415; 71045; 80048; 80053; 81001; 82803; 83605; 83735; 83880; 84145; 84443; 85025; 85610; 87040; 87486; 87581; 87633; 87637; 93005; 93306; 94640; 96365; 96375; 99285; G0378; J0456; J0696; J1938; J2919; J7050; J7512; J7626; J9999